=== PATIENT | male | born 1970 | race Caucasian/White ===

== ENCOUNTER 2022-12-26 16:47 | Outpatient (CLI) | payer SELFPAY | END 2022-12-26 16:48 | disposition home or self-care (01) | LOC: AMB 12-29 09:10 | PROVIDERS: Visit Provider Family Medicine | DX: R41.82 Altered mental status, unspecified (principal) | CPT/HCPCS: A0425; A0427 ==

== ENCOUNTER 2022-12-26 17:11 | Observation (INO) | payer SELFPAY ==
[2022-12-26] VITALS (28 sets, daily range): BP systolic 124–152; BP diastolic 78–108; PULSE 70–91; RESP 16–18; TEMP 36.3–36.9; O2SAT 92–99; BMI 26.6; BMI 28.3
--- NOTE | 2022-12-26 17:13 | CT_ITS ---
Final Report Patient: SABAS RAGLAND Facility:?[facility] Patient ID:?[id number] Site Patient ID:?[id number]. Site :?[id number] Study:?CT Neck Angio Angio STROKE ALL IMAGES ON ANGIO HEAD-12/26/2022 5:34:55 PM Ordering Physician:?Varinder Monroy Final Report: INDICATION: Acute stroke, speech difficulty. TECHNIQUE: CTA neck with contrast bolus tracking, 3D angiographic rendering using maximum intensity projection (MIP). FINDINGS: There is no significant carotid artery stenosis or dissection. There is no significant vertebral artery stenosis or dissection. The soft tissues of the neck are within normal limits. The cervical spine is in normal alignment. IMPRESSION: Unremarkable neck CTA. Please note that all CT scans at this facility use dose modulation, iterative reconstruction, and/or weight-based dosing when appropriate to reduce radiation dose to as low as reasonably achievable. Dictated by Prasanna Estevez MD @ 12/27/2022 9:25:24 AM (Electronic Signature)
--- NOTE | 2022-12-26 17:13 | CRLHL7_ITS ---
For Patients: As a result of the Century Cures Act, medical imaging exams and procedure reports are released immediately into your electronic medical record. You may view this report before your referring provider. If you have questions, please contact your health care provider. INDICATION: Stroke, tongue and speech issues. TECHNIQUE: CT head without contrast. COMPARISON: None. FINDINGS: CSF spaces: Within normal limits for age. Brain parenchyma: The jones-white differentiation is normal. No sign of mass, hemorrhage, or midline shift. Skull base and calvarium: The visualized paranasal sinuses and mastoid air cells demonstrate no acute or significant findings. The visualized orbits are grossly unremarkable. No skull fractures. IMPRESSION: No acute intracranial abnormality. Please note that all CT scans at this facility use dose modulation, iterative reconstruction, and/or weight-based dosing when appropriate to reduce radiation dose to as low as reasonably achievable. Dictated by Wang Fontenot MD @ 12/26/2022 5:44:39 PM (Electronically Signed)
--- NOTE | 2022-12-26 17:15 | ED_ITS ---
HPI - General Adult General Date Seen: 12/26/22 Chief complaint: Neuro Symptoms/Altered Deficit Stated complaint: Possible Stroke Time Seen by Provider: 12/26/22 17:22 Source: patient, EMS and RN notes reviewed Mode of arrival: EMS Limitations: no limitations History of Present Illness HPI narrative: Patient is a 52-year-old male appropriately brought in on a [facility] stroke code. Around 425 he was eating, felt sudden onset of being confused, could not chew his food, could not swallow. He actually reached in his mouth and pulled his food out, could not even make the motor function to spit food out. He noted no double vision. He looked in the mirror and did note he had left facial drooping. He did not try to speak at that time but when EMS arrived, they did note left facial drooping and slurred speech. He has improved in route. His facial drooping has resolved. He states he is speaking better now. Can not say how now brown cow succinctly. This started at about 4:25 p.m.. They did check a glucose and he was 304. He is reportedly a diet-controlled type 2 diabetic, no meds. He has never had a prior stroke, no vascular history. Denies any alcohol, no illicit substances, no trauma. 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 Related Data Home Medications Medication Instructions Recorded Confirmed No Known Home Medications 12/26/22 12/26/22 Allergies Allergy/AdvReac Type Severity Reaction Status Date / Time No Known Drug Allergies Allergy Verified 12/26/22 17:31 Review of Systems Status of ROS: Reports: 10 or more systems reviewed and unremarkable except as noted in History and below [facility] Social History Smoking Status: Unknown if ever smoked Exam Const: Vital Signs, click to edit/add: Vital Signs - 24 hr 12/26/22 17:28 12/26/22 17:14 12/26/22 17:39 Temperature 97.3 F L Pulse Rate 81 Pulse Rate [Right Pulse Oximeter] 86 Respiratory Rate 18 Blood Pressure Blood Pressure [Ri ght Upper Arm] 143/108 H Pulse Oximetry 99 97 98 Oxygen Delivery Me thod Room Air 12/26/22 17:47 12/26/22 17:59 12/26/22 18:00 Temperature Pulse Rate 89 85 85 Pulse Rate [Right Pulse Oximeter] Respiratory Rate Blood Pressure 143/83 H Blood Pressure [Ri ght Upper Arm] Pulse Oximetry 97 96 96 Oxygen Delivery Me thod 12/26/22 18:01 12/26/22 18:02 12/26/22 18:15 Temperature Pulse Rate 83 82 85 Pulse Rate [Right Pulse Oximeter] Respiratory Rate Blood Pressure 145/85 H Blood Pressure [Ri ght Upper Arm] Pulse Oximetry 96 96 97 Oxygen Delivery Me thod 12/26/22 18:16 12/26/22 18:17 12/26/22 18:30 Temperature Pulse Rate 86 91 86 Pulse Rate [Right Pulse Oximeter] Respiratory Rate Blood Pressure 131/93 H Blood Pressure [Ri ght Upper Arm] Pulse Oximetry 94 96 96 Oxygen Delivery Me thod 12/26/22 18:31 12/26/22 18:45 12/26/22 18:46 Temperature Pulse Rate 87 80 83 Pulse Rate [Right Pulse Oximeter] Respiratory Rate Blood Pressure 151/101 H 136/88 Blood Pressure [Ri ght Upper Arm] Pulse Oximetry 96 97 95 Oxygen Delivery Me thod 12/26/22 19:00 12/26/22 19:01 12/26/22 19:15 Temperature Pulse Rate 86 81 81 Pulse Rate [Right Pulse Oximeter] Respiratory Rate Blood Pressure 152/87 H Blood Pressure [Ri ght Upper Arm] Pulse Oximetry 96 96 96 Oxygen Delivery Me thod 12/26/22 19:17 12/26/22 19:30 Temperature Pulse Rate 82 80 Pulse Rate [Right Pulse Oximeter] Respiratory Rate Blood Pressure 135/94 H Blood Pressure [Ri ght Upper Arm] Pulse Oximetry 96 94 Oxygen Delivery Me thod Patient was met in the hallway on ambulance arrival, initial survey revealed an alert patient talking, maybe a couple of slight initial slurred words but overall has succinct speech. He is protecting his airway, hemodynamically stable. GCS is 15/15, current NIH on my initial evaluation is 0. Pupils are equal round reactive extraocular muscles intact. Symmetrical facial function, no facial drooping now, EMS confirms this. Normal visual oquendo on confrontation. Neck is supple, no masses. Lungs clear anteriorly with good air entry, regular rate and rhythm no murmur. Abdomen is soft. He has 5/5 strength of his extremities. Can lift his legs off the bed, normal sensation throughout. Equal hand security clerk strength. Documenting provider has reviewed patient's vital signs: yes Common normals: no apparent distress, average body habitus, oriented x3, no limitations, healthy appearing and alert General appearance: cooperative, comfortable, well kempt and well developed HENMT: Common normals: normocephalic, head/scalp atraumatic, hearing grossly normal bilaterally, moist oral mucous membranes, oropharynx normal, dentition n ormal and gingiva normal Head and scalp: normocephalic and atraumatic Eye: Common normals: PERRL, EOMs intact bilaterally, conjunctivae normal, no scleral icterus and normal visual oquendo by confrontation Conjunctiva: conjunctiva(e) normal Pupil: PERRL Neck & C-Spine: Common normals: full ROM, no lymphadenopathy, supple and thyroid normal Thyroid: thyroid normal Resp: Common normals: normal respiratory effort, no retractions, no use of accessory muscles and clear to auscultation bilaterally Auscultation: clear to auscultation bilaterally Cardio: Common normals: regular rate, regular rhythm, S1 normal heart sound, S2 normal heart sound, no gallops, no clicks and no murmurs Rate: regular rate Rhythm: regular rhythm Heart sounds: S1 normal and S2 normal GI: Common normals: Normal to inspection, nondistended, normoactive bowel sounds present, soft to palpation, non-tender, no hepatosplenomegaly and no mas ses Palpation: soft and no hepatosplenomegaly Extremity: Common normals: no pedal edema Neuro: Aminata Coma Scale: document GCS findings Aminata coma scale eye opening: Spontaneous (4) Bruni coma scale verbal response: Orientated (5) Bruni coma scale motor response: Obey commands (6) Bruni coma scale total score: 15 Common normals: oriented x3, CN's II-XII intact bilaterally, moves all extremities, no focal motor deficits, no sensory deficits noted and gait normal Sensorium/orientation: alert Speech: speech normal Psych: Appearance: well kempt Course Course Hospital Course: Patient was taken directly to CT scanner. Afterwards, will have him on cardiac monitoring, pulse oximetry, get appropriate labs, EKG. Make sure there is no arrhythmia. Seems to have had a neurologic event that would be consistent with a TIA. Need to observe him for worsening or recurrence. Will likely eventually talk to Neurology. Reevaluation(s) Reevaluation #1: Patient is still at baseline, no return of any neurologic changes. Reviewed his head noncontrast and the CT angio of his head and neck are revealing no acute pathology. I will be paging stroke Neurology shortly, need to wait for just a while while I finished something else up. Patient understands. Should not be long hopefully before I can page out the stroke neurologist. Time: 18:35 Reevaluation #2: Have reviewed the plan for admission, MRI in the morning. Have reviewed that the neurologist did recommend dual anti-platelet agents at this time with aspirin and Plavix. Further directions based on MRI findings in the morning. He remains asymptomatic at this time. Time: 20:13 Consultations Consultation #1: Have spoke with hospitalist. Did go through [facility] due to our hospitalist being quite busy. We reviewed the case, did review with him that I had spoken with the stroke neurologist at [facility]. She did recommend aspirin and loading of Plavix 300 mg at this time, further directions based off of MRI in the morning. Time: 19:53 Vital Signs Vital signs: Initial Vital Signs Pulse Oximetry 97 12/26/22 17:14 Vital Signs Pulse Oximetry 97 12/26/22 17:14 Temperature 97.3 F L 12/26/22 17:28 Pulse Rate 80 12/26/22 19:30 Respiratory Rate 18 12/26/22 17:28 Blood Pressure 135/94 H 12/26/22 19:17 Pulse Oximetry 94 12/26/22 19:30 Oxygen Delivery Method Room Air 12/26/22 17:28 Medical Decision Making Lab Data Lab results reviewed: Yes I reviewed the patient's lab results Labs: Lab Results 12/26/22 12/26/22 Range/Units 17:14 17:47 WBC 5.70 (4.50-11.00) K/uL RBC 5.81 (4.30-5.90) m/uL Hgb 17.0 (13.5-17.5) gm/dL Hct 48.7 (37.0-53.0) % MCV 84 (80-100) fL MCH 29 (26-34) pg MCHC 35 (32-36) gm/dL RDW Coeff of Michelle 12.1 (11.5-15.5) % Plt Count 196 (140-440) K/uL Neut % (Auto) 65.2 (42.0-72.0) % Lymph % (Auto) 25.8 (20-44) % Caldwell % (Auto) 7.0 (0.0-11.0) % Eos % (Auto) 1.1 (0.0-7.0) % Baso % (Auto) 0.4 (0.0-3.0) % Neut # (Auto) 3.72 (1.7-7.0) K/uL Lymph # (Auto) 1.47 (0.90-2.90) K/uL Caldwell # (Auto) 0.40 (0.00-0.90) K/UL Eos # (Auto) 0.06 (0.00-0.50) K/uL Baso # (Auto) 0.02 (0.00-0.30) K/uL INR 0.91 (0.91-1.10) APTT 24 (23-33) Seconds Sodium 135 (135-149) mmol/L Potassium 4.9 (3.6-5.1) mmol/L Chloride 98 (96-114) mmol/L Carbon Dioxide 25 (20-32) mmol/L BUN 13 (7-30) mg/dL Creatinine 0.6 (0.5-1.5) mg/dL Estimated Creat Clear 131.59 Estimated GFR 115 ml/min Glucose 321 H (60-115) mg/dL Calcium 9.4 (8.4-10.6) mg/dL Total Bilirubin 1.0 (0.1-1.5) mg/dL AST 15 (12-35) U/L ALT 23 (4-50) U/L Alkaline Phosphatase 64 (40-150) U/L Troponin I < 0.01 L (0.01-0.04) ng/mL C-Reactive Protein 0.7 (0.5-1.0) mg/dL Total Protein 7.5 (6.0-8.3) g/dL Albumin 4.4 (3.3-5.0) g/dL SARS-CoV-2 (PCR) Negative SARS-CoV-2 (Negative) Imaging Data CT scan - head: Attestation: I have reviewed the pertinent imaging results. Radiologist's impression: Patient: SABAS RAGLAND Facility:?[facility] Patient ID:?[id number] Site Patient ID:?[id number]. Site :?[id number] Study:?CT Head W/O STROKE CODE-12/26/2022 5:32:36 PM Ordering Physician:Nigel Monroy Final Report: INDICATION: Stroke, tongue and speech issues. TECHNIQUE: CT head without contrast. COMPARISON: None. FINDINGS: CSF spaces: Within normal limits for age. Brain parenchyma: The jones-white differentiation is normal. No sign of mass, hemorrhage, or midline shift. Skull base and calvarium: The visualized paranasal sinuses and mastoid air cells demonstrate no acute or significant findings. The visualized orbits are grossly unremarkable. No skull fractures. IMPRESSION: No acute intracranial abnormality. Please note that all CT scans at this facility use dose modulation, iterative reconstruction, and/or weight-based dosing when appropriate to reduce radiation dose to as low as reasonably achievable. Dictated by Wang Fontenot MD @ 12/26/2022 5:44:39 PM (Electronic Signature) report called at 546pm CTA head and neck: Attestation: I have reviewed the pertinent imaging results. Radiologist's impression: Patient: SABAS RAGLAND Facility:?[facility] Patient ID:?[id number] Site Patient ID:?[id number] Site :?[id number] Study:?CT Head Angio W/95CC ISOVUE 370 STROKE CODE-12/26/2022 5:34:23 PM Ordering Physician:Nigel Monroy Preliminary Report: COMPARISON: None. IMPRESSION: CTA head: Unremarkable. No sign of occlusion or significant aneurysm. CTA neck: Unremarkable. No sign of dissection or significant stenosis. Dictated by Wang Fontenot MD @ 12/26/2022 6:00:04 PM Read by:?Wang Fontenot MD @ 12/26/2022 18:00:08 ECG Data Attestation: I personally reviewed and interpreted this ECG as follows: (NSR, 81bpm. No ischemia. QTc 436ms.) Prior ECG tracings: not available for review Critical Care Time Critical Care Time Critical Care Time: No Discharge Plan Discharge Clinical Impression: TIA (transient ischemic attack) Patient Disposition: Admitted As Inpatient Condition: Improved Prescriptions: No Action No Known Home Medications Follow Up/Referrals: Yovani Hernandez MD [Staff Physician] -
[2022-12-26 17:54] LABS: Basophils Absolute Auto 0.02 K/uL (0.00-0.30); Basophils Percent Auto 0.4 % (0.0-3.0); Eosinophils Absolute Auto 0.06 K/uL (0.00-0.50); Eosinophils Percent Auto 1.1 % (0.0-7.0); Hematocrit 48.7 % (37.0-53.0); Immature Granulocytes Abs Auto 0.03 K/uL (0.00-0.30); Immature Granulocytes Pct Auto 0.5 %; Lymphocytes Absolute Auto 1.47 K/uL (0.90-2.90); Lymphocytes Percent Auto 25.8 % (20-44); Mean Corpuscular HGB Conc 35 gm/dL (32-36); Mean Corpuscular Hemoglobin 29 pg (26-34); Mean Corpuscular Volume 84 fL (80-100); Neutrophils Absolute Auto 3.72 K/uL (1.7-7.0); Neutrophils Percent Auto 65.2 % (42.0-72.0); Platelet Count* 196 K/uL (140-440); RDW Coefficient of Variation % 12.1 % (11.5-15.5); Red Blood Count 5.81 m/uL (4.30-5.90)
[2022-12-26 17:59] LABS: Slide Review Reflex No
[2022-12-26 18:06] LABS: Albumin* 4.4 g/dL (3.3-5.0); Chloride* 98 mmol/L (96-114); Sodium* 135 mmol/L (135-149)
[2022-12-26 18:07] LABS: Potassium* 4.9 mmol/L (3.6-5.1)
[2022-12-26 18:09] LABS: Creatinine* 0.6 mg/dL (0.5-1.5); Est. Creatinine Clearance* 131.59; Estimated Glomerular Filt Rate 115 ml/min
[2022-12-26 18:10] LABS: Alanine Aminotransferase* 23 U/L (4-50); Alkaline Phosphatase* 64 U/L (40-150); Aspartate Amino Transferase* 15 U/L (12-35); Blood Urea Nitrogen* 13 mg/dL (7-30); Calcium* 9.4 mg/dL (8.4-10.6); Carbon Dioxide* 25 mmol/L (20-32); Glucose* 321 mg/dL (60-115); INR 0.91 (0.91-1.10); Prothrombin Time 12.8 Seconds; Total Protein* 7.5 g/dL (6.0-8.3)
[2022-12-26 18:11] LABS: Partial Thromboplastin Time* 24 Seconds (23-33)
[2022-12-26 18:11] LABS: SARS PCR* Negative SARS-CoV-2 (Negative)
[2022-12-26 18:12] LABS: C Reactive Protein* 0.7 mg/dL (0.5-1.0)
[2022-12-26 18:22] LABS: Troponin I* < 0.01 ng/mL (0.01-0.04)
[2022-12-26] MEDS: ASPIRIN 81 MG TAB.CHEW 324 MG PO (20:19)
[2022-12-26] MEDS: CLOPIDOGREL 300 MG TABLET PO (20:20)
--- NOTE | 2022-12-26 23:58 | P.IMCN_ITS ---
Date of Consult Consult date: 12/26/22 Primary Care Provider: Not a Local Provider Consult Narrative Narrative: Johny Mcdonough is a 52 year old male [facility] Medical History (Updated 12/26/22 @ 21:46 by Steven Mann RN) DM (diabetes mellitus), type 2 ?E11.9 - Type 2 diabetes mellitus without complications (ICD-10) Family History (Updated 12/26/22 @ 21:47 by Steven Mann RN) Other History of appendectomy History of hernia surgery Social History Highest level of school completed/degree received: 12th grade, no diploma Smoking Status: Never smoker How often do you have six or more drinks on one occasion: Monthly AUDIT-C Alcohol total score: 2 Non-prescribed substance use: denies use Caffeine: Yes service: Yes Meds Home Medications and Allergies Home Medications Medication Instructions Recorded Confirmed Type No Known Home Medications 12/26/22 12/26/22 History Allergies Allergy/AdvReac Type Severity Reaction Status Date / Time No Known Drug Allergies Allergy Verified 12/26/22 17:31 Exam Const: Vital Signs, click to edit/add: Vital Signs - 24 hr 12/26/22 17:28 12/26/22 17:14 12/26/22 17:39 Temperature 97.3 F L Pulse Rate 81 Pulse Rate [Left P ulse Oximeter] Pulse Rate [Right Pulse Oximeter] 86 Respiratory Rate 18 Blood Pressure Blood Pressure [Le ft Arm] Blood Pressure [Ri ght Upper Arm] 143/108 H Pulse Oximetry 99 97 98 Oxygen Delivery Me thod Room Air 12/26/22 17:47 12/26/22 17:59 12/26/22 18:00 Temperature Pulse Rate 89 85 85 Pulse Rate [Left P ulse Oximeter] Pulse Rate [Right Pulse Oximeter] Respiratory Rate Blood Pressure 143/83 H Blood Pressure [Le ft Arm] Blood Pressure [Ri ght Upper Arm] Pulse Oximetry 97 96 96 Oxygen Delivery Me thod 12/26/22 18:01 12/26/22 18:02 12/26/22 18:15 Temperature Pulse Rate 83 82 85 Pulse Rate [Left P ulse Oximeter] Pulse Rate [Right Pulse Oximeter] Respiratory Rate Blood Pressure 145/85 H Blood Pressure [Le ft Arm] Blood Pressure [Ri ght Upper Arm] Pulse Oximetry 96 96 97 Oxygen Delivery Me thod 12/26/22 18:16 12/26/22 18:17 12/26/22 18:30 Temperature Pulse Rate 86 91 86 Pulse Rate [Left P ulse Oximeter] Pulse Rate [Right Pulse Oximeter] Respiratory Rate Blood Pressure 131/93 H Blood Pressure [Le ft Arm] Blood Pressure [Ri ght Upper Arm] Pulse Oximetry 94 96 96 Oxygen Delivery Me thod 12/26/22 18:31 12/26/22 18:45 12/26/22 18:46 Temperature Pulse Rate 87 80 83 Pulse Rate [Left P ulse Oximeter] Pulse Rate [Right Pulse Oximeter] Respiratory Rate Blood Pressure 151/101 H 136/88 Blood Pressure [Le ft Arm] Blood Pressure [Ri ght Upper Arm] Pulse Oximetry 96 97 95 Oxygen Delivery Me thod 12/26/22 19:00 12/26/22 19:01 12/26/22 19:15 Temperature Pulse Rate 86 81 81 Pulse Rate [Left P ulse Oximeter] Pulse Rate [Right Pulse Oximeter] Respiratory Rate Blood Pressure 152/87 H Blood Pressure [Le ft Arm] Blood Pressure [Ri ght Upper Arm] Pulse Oximetry 96 96 96 Oxygen Delivery Me thod 12/26/22 19:17 12/26/22 19:30 12/26/22 19:31 Temperature Pulse Rate 82 80 84 Pulse Rate [Left P ulse Oximeter] Pulse Rate [Right Pulse Oximeter] Respiratory Rate Blood Pressure 135/94 H 124/86 Blood Pressure [Le ft Arm] Blood Pressure [Ri ght Upper Arm] Pulse Oximetry 96 94 96 Oxygen Delivery Me thod 12/26/22 19:45 12/26/22 19:47 12/26/22 20:00 Temperature Pulse Rate 78 78 75 Pulse Rate [Left P ulse Oximeter] Pulse Rate [Right Pulse Oximeter] Respiratory Rate Blood Pressure 131/88 Blood Pressure [Le ft Arm] Blood Pressure [Ri ght Upper Arm] Pulse Oximetry 96 95 97 Oxygen Delivery Me thod 12/26/22 20:01 12/26/22 21:39 Temperature 98.5 F Pulse Rate 78 Pulse Rate [Left P ulse Oximeter] 72 Pulse Rate [Right Pulse Oximeter] Respiratory Rate 16 Blood Pressure 127/85 Blood Pressure [Le ft Arm] 149/98 H Blood Pressure [Ri ght Upper Arm] Pulse Oximetry 92 96 Oxygen Delivery Me thod Room Air Labs Labs: Short CBC 12/26/22 Range/Units 17:47 WBC 5.70 (4.50-11.00) K/uL Hgb 17.0 (13.5-17.5) gm/dL Hct 48.7 (37.0-53.0) % Plt Count 196 (140-440) K/uL BMP 12/26/22 17:47 Sodium 135 Potassium 4.9 Chloride 98 Carbon Dioxide 25 BUN 13 Creatinine 0.6 Glucose 321 H Calcium 9.4 Cardiac Enzymes 12/26/22 Range/Units 17:47 Troponin I < 0.01 L (0.01-0.04) ng/mL Liver Function 12/26/22 Range/Units 17:47 Total Bilirubin 1.0 (0.1-1.5) mg/dL AST 15 (12-35) U/L ALT 23 (4-50) U/L Alkaline Phosphatase 64 (40-150) U/L Albumin 4.4 (3.3-5.0) g/dL Assessment and Plan Assessment and plan (1) TIA (transient ischemic attack): Status: Acute Plan [facility] Hospitalist eHospitalist was contacted with request of consultation for patient presenting with TIA History of present illness: The patient is a 52-year-old male with a past medical history of diabetes mellitus who was trying to control regular diet who around 4:30 PM this evening felt a sudden onset of confusion and dizziness and difficulty chewing his food and inability to swallow. He actually ration to his mouth to pull out the food bolus because he was not sure if he would pass out or aspirate. He looked in the mirror and also noticed some drooping of the left side of the face. He did not have any speech difficulty or motor weakness, visual symptoms or feelings that he would pass out. Did not have any headache nausea or vomiting. He was actually able to call EMS by himself. When they arrived his fingerstick was 304. By the time he arrived in the emergency room, almost 45 to 60 minutes later, his symptoms had completely resolved. He was mildly hypertensive. CT head did not show any acute pathology, CTA neck did not show any acute large vessel occlusion. ER provider discussed the case with [place] neurology who recommended to bring the patient in for an MRI in the morning and to load with aspirin and Plavix tonight. When I spoke to the patient he had no neurological symptoms and was feeling well. Home Medications: see EMR Pertinent Medical History: Diet-controlled diabetes mellitus. He says his hemoglobin A1c was around 10 Pertinent Social History: Noncontributory Exam (performed via interactive video with assistance of bedside nurse): Afebrile blood pressure 149/98 mmHg pulse rate 72 respirations 16 O2 sat 96% on room air General: alert, cooperative, no acute distress HEENT: oral mucosa pink and moist without erythema. All extraocular movements intact and symmetrical Lungs: clear to auscultation bilaterally without crackle or wheeze CV: regular rate and rhythm without loud murmur rub or gallop Abd: denies tenderness and does not exhibit signs of pain with palpation done by bedside nurse Ext: no pitting edema noted Skin: no rashes, bruises or lesions appreciated on gross visualization of exposed skin Neuro:[alert, oriented x 3. facial muscles grossly intact, moves all extremities without any significant focal deficit appreciated by nurse pertinent labs and imaging Glucose 321 Troponin 0.[address]-T wave changes CT head and CTA neck as discussed Assessment and Plan: The patient is admitted with relatively high risk TIA with ABCD 2 score of 4-5. Currently has no neurological deficits. He does have some hypertension and uncontrolled diabetes mellitus. Case was discussed with [facility] neurology who recommended loading with dual antiplatelet therapy. -Continue aspirin and Plavix until MRI head done tomorrow. We will also get 2D echo -Neurochecks overnight -We will get hemoglobin A1c and lipid panel in the morning. May eventually require a statin, diabetic medications and antihypertensives secondary prevention Thank you for including [facility] in the patients care. This service is available for further assistance as requested by your care team by calling [phone].
[2022-12-27] VITALS (8 sets, daily range): BP systolic 123–130; BP diastolic 70–83; PULSE 69–707; RESP 16–18; TEMP 36.4–36.9; O2SAT 97–98
--- NOTE | 2022-12-27 05:13 | PC.NURSE ---
Shift note: Pt received to the facility at 2125 on a wheelchair accompanied by an ED staff. Alert, oriented and conscious on arrival. V/S stable. ROM present and equal in both upper and lower extremities. CMS intact. No facial dropping noted. Pt denied any pain, SOB, difficulty swallowing and weakness. Ambulated independently without any difficulty. MD assessment through Jale[facility] done at 2330. Pt appears comfortable without any physical deformities related to TIA. Had adequate sleep.EKG ordered and was done. Continuous secured entrance monitor set up and appears to have NSR.
[2022-12-27 06:57] LABS: Cholesterol* 111 mg/dL (90-199)
[2022-12-27 06:58] LABS: HDL Cholesterol* 63 mg/dL (>=40); LDL Cholesterol Calculated 37 mg/dL (<100); Triglycerides* 53 mg/dL (40-149)
[2022-12-27] MEDS: CLOPIDOGREL 75 MG TABLET PO (08:30)
[2022-12-27] MEDS: ASPIRIN 81 MG TAB.CHEW PO (08:30)
[2022-12-27 08:45] LABS: Hemoglobin A1C* 11.95 % (0-5.6)
--- NOTE | 2022-12-27 10:36 | P.IMHP_ITS ---
Hospitalist- H&P: HPI History of Present Illness Date Seen: 12/27/22 Chief complaint: Possible Stroke Narrative: Johny Mcdonough is a 52 year old male who presented to the emergency room by EMS yesterday for acute onset of neurological changes. Patient was at home eating a sandwich in the afternoon, when all of a sudden his tongue felt weird. He was unable to speak and noted a L facial droop when he looked in the mirror. ER course and findings: - symptoms improved during EMS ride to hospital - blood sugar 304 - no acute findings on head CT or CTA head neck - initiated dual antiplatelet therapy with Plavix and ASA - admitted overnight by E-hospitalist, MRI and TTE scheduled for today Patient does not currently have a PCP. History of diabetes, not currently on any medications. A1c this morning is 11.9, upon chart review was 10.7 in 2018. Review of Systems Status of ROS: Reports: 10 or more systems reviewed and unremarkable except as noted in History and below [facility] Medical History (Updated 12/27/22 @ 14:07 by Hollie Eli MD) DM (diabetes mellitus), type 2 ?E11.9 - Type 2 diabetes mellitus without complications (ICD-10) Surgical History (Updated 12/27/22 @ 10:55 by Hollie Eli MD) History of hernia repair ?Z98.890 - Other specified postprocedural states (ICD-10) ?Z87.19 - Personal history of other diseases of the digestive system (ICD-10) S/P appendectomy ?Z90.49 - Acquired absence of other specified parts of digestive tract (ICD- 10) Social History Highest level of school completed/degree received: 12th grade, no diploma Smoking Status: Never smoker How often do you have six or more drinks on one occasion: Monthly AUDIT-C Alcohol total score: 2 Non-prescribed substance use: denies use Caffeine: Yes service: Yes Meds Home Medications and Allergies Allergies Allergy/AdvReac Type Severity Reaction Status Date / Time No Known Drug Allergies Allergy Verified 12/26/22 17:31 Exam Narrative: Exam Narrative: GEN: Alert HEENT: No scleral icterus CV: RRR, No concerning murmurs. + soft left-sided carotid bruit R: LCTA bilaterally without concerning wheezing, air movement adequate Ext: wwp, no concerning edema Skin: No concerning skin lesions or rashes on exposed skin Neuro: No acute facial droop appreciated, EOMIs. No resting tremor, no pronator drift, no dysmetria on finger to nose testing Psych: Appropriate Const: Vital Signs, click to edit/add: Vital Signs - 24 hr 12/26/22 17:28 12/26/22 17:14 12/26/22 17:39 Temperature 97.3 F L Pulse Rate 81 Pulse Rate [Left P ulse Oximeter] Pulse Rate [Right Pulse Oximeter] 86 Respiratory Rate 18 Blood Pressure Blood Pressure [Le ft Arm] Blood Pressure [Ri ght Upper Arm] 143/108 H Pulse Oximetry 99 97 98 Oxygen Delivery Me thod Room Air 12/26/22 17:47 12/26/22 17:59 12/26/22 18:00 Temperature Pulse Rate 89 85 85 Pulse Rate [Left P ulse Oximeter] Pulse Rate [Right Pulse Oximeter] Respiratory Rate Blood Pressure 143/83 H Blood Pressure [Le ft Arm] Blood Pressure [Ri ght Upper Arm] Pulse Oximetry 97 96 96 Oxygen Delivery Me thod 12/26/22 18:01 12/26/22 18:02 12/26/22 18:15 Temperature Pulse Rate 83 82 85 Pulse Rate [Left P ulse Oximeter] Pulse Rate [Right Pulse Oximeter] Respiratory Rate Blood Pressure 145/85 H Blood Pressure [Le ft Arm] Blood Pressure [Ri ght Upper Arm] Pulse Oximetry 96 96 97 Oxygen Delivery Me thod 12/26/22 18:16 12/26/22 18:17 12/26/22 18:30 Temperature Pulse Rate 86 91 86 Pulse Rate [Left P ulse Oximeter] Pulse Rate [Right Pulse Oximeter] Respiratory Rate Blood Pressure 131/93 H Blood Pressure [Le ft Arm] Blood Pressure [Ri ght Upper Arm] Pulse Oximetry 94 96 96 Oxygen Delivery Me thod 12/26/22 18:31 12/26/22 18:45 12/26/22 18:46 Temperature Pulse Rate 87 80 83 Pulse Rate [Left P ulse Oximeter] Pulse Rate [Right Pulse Oximeter] Respiratory Rate Blood Pressure 151/101 H 136/88 Blood Pressure [Le ft Arm] Blood Pressure [Ri ght Upper Arm] Pulse Oximetry 96 97 95 Oxygen Delivery Me thod 12/26/22 19:00 12/26/22 19:01 12/26/22 19:15 Temperature Pulse Rate 86 81 81 Pulse Rate [Left P ulse Oximeter] Pulse Rate [Right Pulse Oximeter] Respiratory Rate Blood Pressure 152/87 H Blood Pressure [Le ft Arm] Blood Pressure [Ri ght Upper Arm] Pulse Oximetry 96 96 96 Oxygen Delivery Me thod 12/26/22 19:17 12/26/22 19:30 12/26/22 19:31 Temperature Pulse Rate 82 80 84 Pulse Rate [Left P ulse Oximeter] Pulse Rate [Right Pulse Oximeter] Respiratory Rate Blood Pressure 135/94 H 124/86 Blood Pressure [Le ft Arm] Blood Pressure [Ri ght Upper Arm] Pulse Oximetry 96 94 96 Oxygen Delivery Me od 12/26/22 19:45 12/26/22 19:47 12/26/22 20:00 Temperature Pulse Rate 78 78 75 Pulse Rate [Left P ulse Oximeter] Pulse Rate [Right Pulse Oximeter] Respiratory Rate Blood Pressure 131/88 Blood Pressure [Le ft Arm] Blood Pressure [Ri ght Upper Arm] Pulse Oximetry 96 95 97 [facility] 12/26/22 20:01 12/26/22 21:39 12/26/22 23:00 Temperature 98.5 F Pulse Rate 78 Pulse Rate [Left P ulse Oximeter] 72 72 Pulse Rate [Right Pulse Oximeter] Respiratory Rate 16 16 Blood Pressure 127/85 Blood Pressure [Le ft Arm] 149/98 H Blood Pressure [Ri ght Upper Arm] Pulse Oximetry 92 96 [facility] 12/26/22 23:45 12/26/22 23:45 12/27/22 00:51 Temperature 98 F 98.4 F Pulse Rate 70 Pulse Rate [Left P ulse Oximeter] 79 79 Pulse Rate [Right Pulse Oximeter] Respiratory Rate 16 16 Blood Pressure Blood Pressure [Le ft Arm] 124/78 124/77 Blood Pressure [Ri ght Upper Arm] Pulse Oximetry 98 98 Oxygen Delivery [facility] Room Air Room Air 12/27/22 03:00 12/27/22 07:00 12/27/22 07:00 Temperature 98.4 F 98.2 F Pulse Rate Pulse Rate [Left P ulse Oximeter] 69 76 76 Pulse Rate [Right Pulse Oximeter] Respiratory Rate 16 16 16 Blood Pressure Blood Pressure [Le ft Arm] 127/75 123/83 Blood Pressure [Ri ght Upper Arm] Pulse Oximetry 98 97 Oxygen Delivery Me thod Room Air Room Air Hospitalist - H&P: Result Labs Labs: Short CBC 12/26/22 Range/Units 17:47 WBC 5.70 (4.50-11.00) K/uL Hgb 17.0 (13.5-17.5) gm/dL Hct 48.7 (37.0-53.0) % Plt Count 196 (140-440) K/uL BMP 12/26/22 17:47 Sodium 135 Potassium 4.9 Chloride 98 Carbon Dioxide 25 BUN 13 Creatinine 0.6 Glucose 321 H Calcium 9.4 Cardiac Enzymes 12/26/22 Range/Units 17:47 Troponin I < 0.01 L (0.01-0.04) ng/mL Liver Function 12/26/22 Range/Units 17:47 Total Bilirubin 1.0 (0.1-1.5) mg/dL AST 15 (12-35) U/L ALT 23 (4-50) U/L Alkaline Phosphatase 64 (40-150) U/L Albumin 4.4 (3.3-5.0) g/dL TECHNIQUE: Multiplanar multisequence noncontrast MR images acquired through the brain. COMPARISON: CT brain 12/26/2022. FINDINGS: The ventricles and sulci are within normal limits for patient age. No mass effect or midline shift. Punctate FLAIR hyperintensity within the right frontal white matter (series 4, image 23), nonspecific though typical for sequelae of migraine headaches or minimal chronic microvascular ischemic change. No intracranial hemorrhage or pathologic extra-axial fluid collection. No diffusion restriction to suggest acute infarction. The major arterial flow voids of the skullbase are preserved. The globes are symmetric. Mild paranasal sinus mucosal thickening. Trace mastoid fluid bilaterally. IMPRESSION: No acute infarction, mass effect, or intracranial hemorrhage. Assessment and Plan Assessment and plan (1) DM (diabetes mellitus), type 2: Problem comment: - A1C 11.9 12/27/22 - will discharge on Metformin 12/27, understands the importance of close PCP f/u and diabetic mgmt Status: Acute (2) TIA (transient ischemic attack): Problem comment: - symptoms resolved in ED, CTA and MRI reassuring - continue dual-antiplatelet therapy for high risk status, establish care with PCP to discuss further workup or Neurology f/u - TTE pending at this time Status: Acute Plan - per above - anticipate discharge home this afternoon with close PCP f/u, pending TTE results - partner updated at bedside, questions answered
--- NOTE | 2022-12-27 11:00 | CRLHL7_ITS ---
For Patients: As a result of the Century Cures Act, medical imaging exams and procedure reports are released immediately into your electronic medical record. You may view this report before your referring provider. If you have questions, please contact your health care provider. INDICATION: Facial droop. Speech disturbance. TECHNIQUE: Multiplanar multisequence noncontrast MR images acquired through the brain. COMPARISON: CT brain 12/26/2022. FINDINGS: The ventricles and sulci are within normal limits for patient age. No mass effect or midline shift. Punctate FLAIR hyperintensity within the right frontal white matter (series 4, image 23), nonspecific though typical for sequelae of migraine headaches or minimal chronic microvascular ischemic change. No intracranial hemorrhage or pathologic extra-axial fluid collection. No diffusion restriction to suggest acute infarction. The major arterial flow voids of the skullbase are preserved. The globes are symmetric. Mild paranasal sinus mucosal thickening. Trace mastoid fluid bilaterally. IMPRESSION: No acute infarction, mass effect, or intracranial hemorrhage. Dictated by Derrek Flores MD @ 12/27/2022 11:10:02 AM (Electronically Signed)
--- NOTE | 2022-12-27 16:34 | NUTR.NU ---
Addendum entered by Adelaida Aguilar RD 12/27/22 16:40: A1c 11.9 Original Note: Patient was educated on carbohydrate counting, portion sizes, balancing meals/snacks and label reading.? Healthy Meal Planning handout provided from [employer].? Recommended for patient to have 3-4 carbohydrate choices at meals with 1-2 choices for snacks as needed based on hunger.? Pt was also encouraged to keep timing of meals consistent and avoid skipping meals. ?Patient had previously attended a Diabetes class series offered by [facility].? He chose not to follow the traditional route but felt that intermittent fasting controlled his BG best.? He admits to having let it go over the past year or more.? ?Patient verbalized understanding.? Pt has adequate knowledge to monitor his BG, count carbs in his food, and access additional education and therapies (updated medication regimen).? RDNs contact information was provided and patient was encouraged to contact RDN with questions.
--- NOTE | 2022-12-27 20:07 | PC.NURSE ---
Nursing Care Hours: 5031-9710 Pt this shift calm and cooperative, alert and oriented. No weakness or deficits observed. Tolerating regular diet. Independent in room. VSS. BS treated with rapid insulin. Educated on diet and exercise to help with DM management. IV removed prior to discharge. All instructions given, all questions and concerns answered. Pt ambulated out to vehicle with spouse in stable condition.
== END 2022-12-27 16:45 | disposition home or self-care (01) ==
LOC: ED 20:17 → MEDSURG 21:22
PROVIDERS: Internal Medicine; Admitting Provider Internal Medicine; Emergency Provider Family Medicine; Visit Provider Internal Medicine
DX: G45.9 Transient cerebral ischemic attack, unspecified (principal); E11.9 Type 2 diabetes mellitus without complications; Z98.890 Other specified postprocedural states; Z87.19 Personal history of other diseases of the digestive system; Z90.49 Acquired absence of other specified parts of digestive tract; F80.9 Developmental disorder of speech and language, unspecified; I10 Essential (primary) hypertension
CPT/HCPCS: 36415; 70450; 70496; 70498; 70551; 80053; 80061; 82962; 83036; 84484; 85025; 85610; 85730; 86140; 87635; 93005; 93306; 94761; 96372; 99285; G0378; A9270; Q9967

== ENCOUNTER 2022-12-27 21:50 | Emergency (ER) | payer SELFPAY ==
[2022-12-27] VITALS (20 sets, daily range): BP systolic 105–196; BP diastolic 76–124; PULSE 92–141; RESP 16; TEMP 36.7; O2SAT 92–99; BMI 28.2
[2022-12-27] MEDS: 0.9 % SODIUM CHLORIDE 1000 ml 1,000 ML IV (22:54)
[2022-12-27] MEDS: LORazepam 2 MG/ML inj 1 MG IVP (22:55)
[2022-12-27 22:58] LABS: Lactate* 2.2 mmol/L (0.5-1.9)
--- NOTE | 2022-12-27 23:10 | ED.NURSE ---
est 7344 pt states pt started to salivate and feel weird, pt head turned to right, drooling with head shaking and upper arm, last about 1 minute. MD Haile to bedside to witness.
--- NOTE | 2022-12-27 23:11 | ED.NURSE ---
Pt's pushed call button in pt room at approximately 2247 stating pt was having another event. This development writer entered the room to see pt shaking in bed with his head turned to the right side and gurgling. This development writer immediately pushed staff assist button for assistance. This development writer attempted to get pt to respond, but he was unable to. Dr. Spann, and other staff arrived to assist after approximately 1 minute. See chart for vitals and medication.
[2022-12-27 23:14] LABS: Chloride* 103 mmol/L (96-114)
[2022-12-27 23:15] LABS: Sodium* 137 mmol/L (135-149)
[2022-12-27 23:17] LABS: Carbon Dioxide* 22 mmol/L (20-32); Creatinine* 0.7 mg/dL (0.5-1.5); Est. Creatinine Clearance* 112.79; Estimated Glomerular Filt Rate 110 ml/min; Lactate Dehydrogenase* 190 U/L (120-246)
[2022-12-27 23:18] LABS: Blood Urea Nitrogen* 17 mg/dL (7-30); Calcium* 9.4 mg/dL (8.4-10.6); Magnesium* 1.6 mg/dL (1.5-2.6)
[2022-12-27 23:24] LABS: Glucose* 460 mg/dL (60-115)
[2022-12-28] VITALS (9 sets, daily range): BP systolic 106–121; BP diastolic 81–92; PULSE 92–99; O2SAT 92–95
--- NOTE | 2022-12-28 01:03 | ED.GENADULT ---
HPI - General Adult General Chief complaint: Unspecified Complaint, Adult Stated complaint: TIA Time Seen by Provider: 12/27/22 21:56 History of Present Illness HPI narrative: 52-year-old man arrives via EMS and presenting with spouse to the emergency department after approximately 2 minute episode of right-sided facial weakness tongue numbness and inability to swallow and subsequently slurring speech right-sided head rotation. Had been trying to eat some blueberries. He is apparently alert somewhat during these episodes. He says making attempts to curse. Is not noted to have become blue. No extremity weaknesses are noted. Sounds like tongue going numb is the 1st sign for him. EMS reports relatively quick clearing of symptoms. This is a similar episode to what occurred yesterday at which point was admitted after normal CT head and CTA head and neck and normal follow-up MRI of the brain. Does have an underlying history of diabetes and with concern of suspected TIA in potentially high-risk individual was discharged with both aspirin and Plavix. I believe the Plavix is to be taken for 30 days per his report. He does reference an echocardiogram as well though I do not see documentation of that in the record. No significant headache history no history of epilepsy in self or family. Related Data Previous Rx's Medication Instructions Recorded aspirin 81 mg chewable tablet 81 mg PO DAILY #30 tabs 12/27/22 (Children's Aspirin) clopidogrel 75 mg tablet 75 mg PO DAILY #30 tabs 12/27/22 metformin 500 mg tablet,extended 500 mg PO BID #60 tabs 12/27/22 release 24hr levetiracetam 750 mg tablet 750 mg PO BID #60 tabs 12/28/22 Allergies Allergy/AdvReac Type Severity Reaction Status Date / Time No Known Drug Allergies Allergy Verified 12/26/22 17:31 Review of Systems Status of ROS: Reports: 6 or more systems reviewed and unremarkable except as noted in History and below [facility] Medical History DM (diabetes mellitus), type 2 ?E11.9 - Type 2 diabetes mellitus without complications (ICD-10) Surgical History History of hernia repair ?Z98.890 - Other specified postprocedural states (ICD-10) ?Z87.19 - Personal history of other diseases of the digestive system (ICD-10) S/P appendectomy ?Z90.49 - Acquired absence of other specified parts of digestive tract (ICD-10) Social History Highest level of school completed/degree received: 12th grade, no diploma Smoking Status: Never smoker How often do you have six or more drinks on one occasion: Monthly AUDIT-C Alcohol total score: 2 Non-prescribed substance use: denies use Caffeine: Yes service: Yes Exam Narrative: Exam Narrative: Very pleasant. Appears to be mentating normally GCS 15. Moving all extremities without difficulty. Joking as per usual. Breathing easily. With initial assessment I thought there was some irregularity on his cardiac monitoring requesting EKG. Is without deficits at this point. Given that he had extensive evaluation within last 24 hours head is bedside to return shortly in this busy emergency department. Proposing some observation. I am called to [facility] [employer] as he is noted to be relatively unresponsive. I arrive to see head rotated forcefully to the right twitching some drooping of the right face drooling and spitting and sonorous breathing. He is alert to my communication and toward the end of this episode which I am understanding to be proximally minute half he is giving me the hang 10 sign. Alerts is able to cooperate with exam. Is slurring words at this time. Very quickly though motor returns to normal. notes how she observed his eyes dilating rather wide just before this episode started. IV fluids are initiated and had been ordered for a mg of Ativan. This is given. Reassessment still subtly slurring words and has rapidly cleared mentally. Heart with elevated rate and regular rhythm. Lungs are clear. Cranial nerves 2-12 intact. No nystagmus. He is with equal and briskly reactive pupils between 2-3 mm. There is no intraoral trauma. He has not lost control of bowel or bladder. Nor did he last time he reports. This is now the 3rd episode in 2 days. [id number] is intact and fluid at this point. Abdomen is soft nontender. No on occasion of trauma on his person. Extremities are without edema and well perfused. Full strength throughout. Cracking jokes. Const: Vital Signs, click to edit/add: Vital Signs - 24 hr 12/27/22 21:57 12/27/22 22:02 12/27/22 22:03 Temperature 98.1 F Pulse Rate 105 H 101 H Pulse Rate [Left P ulse Oximeter] 102 H Respiratory Rate 16 Blood Pressure 139/92 H Blood Pressure [Le ft Upper Arm] 179/82 H Pulse Oximetry 98 98 97 Oxygen Delivery Me thod Room Air 12/27/22 22:10 12/27/22 22:11 12/27/22 22:20 Temperature Pulse Rate 102 H 105 H 106 H Pulse Rate [Left P ulse Oximeter] Respiratory Rate Blood Pressure 117/90 H Blood Pressure [Le ft Upper Arm] Pulse Oximetry 94 95 95 Oxygen Delivery Me thod 12/27/22 22:21 12/27/22 22:52 12/27/22 22:31 Temperature Pulse Rate 104 H 107 H Pulse Rate [Left P ulse Oximeter] Respiratory Rate Blood Pressure 130/91 H 105/89 Blood Pressure [Le ft Upper Arm] Pulse Oximetry 96 98 95 Oxygen Delivery Me thod 12/27/22 22:40 12/27/22 22:42 12/27/22 22:50 Temperature Pulse Rate 141 H 115 H 105 H Pulse Rate [Left P ulse Oximeter] Respiratory Rate Blood Pressure 196/124 H Blood Pressure [Le ft Upper Arm] Pulse Oximetry 98 99 97 Oxygen Delivery Me thod 12/27/22 22:51 12/27/22 23:00 12/27/22 23:01 Temperature Pulse Rate 105 H 95 102 H Pulse Rate [Left P ulse Oximeter] Respiratory Rate Blood Pressure 146/101 H 140/102 H Blood Pressure [Le ft Upper Arm] Pulse Oximetry 96 96 94 Oxygen Delivery Me thod 12/27/22 23:11 12/27/22 23:21 12/27/22 23:31 Temperature Pulse Rate 100 97 94 Pulse Rate [Left P ulse Oximeter] Respiratory Rate Blood Pressure 116/86 114/76 129/79 Blood Pressure [Le ft Upper Arm] Pulse Oximetry 95 93 95 Oxygen Delivery Me thod 12/27/22 23:41 12/27/22 23:51 12/28/22 00:00 Temperature Pulse Rate 92 94 98 Pulse Rate [Left P ulse Oximeter] Respiratory Rate Blood Pressure 124/89 119/84 Blood Pressure [Le ft Upper Arm] Pulse Oximetry 93 92 92 Oxygen Delivery Me thod 12/28/22 00:01 12/28/22 00:11 12/28/22 00:21 Temperature Pulse Rate 99 99 98 Pulse Rate [Left P ulse Oximeter] Respiratory Rate Blood Pressure 121/85 116/81 111/87 Blood Pressure [Le ft Upper Arm] Pulse Oximetry 92 92 92 Oxygen Delivery Me thod 12/28/22 00:31 12/28/22 00:40 12/28/22 00:41 Temperature Pulse Rate 95 98 97 Pulse Rate [Left P ulse Oximeter] Respiratory Rate Blood Pressure 106/92 H 118/81 Blood Pressure [Le ft Upper Arm] Pulse Oximetry 95 92 93 Oxygen Delivery Me thod 12/28/22 00:51 12/28/22 01:01 Temperature Pulse Rate 94 92 Pulse Rate [Left P ulse Oximeter] Respiratory Rate Blood Pressure 112/83 108/85 Blood Pressure [Le ft Upper Arm] Pulse Oximetry 94 94 Oxygen Delivery Me thod Course Vital Signs Vital signs: Initial Vital Signs Temperature 98.1 F 12/27/22 21:57 Temperature Source Temporal Artery Scan 12/27/22 21:57 Pulse Rate 102 H 12/27/22 21:57 Respiratory Rate 16 12/27/22 21:57 Blood Pressure 179/82 H 12/27/22 21:57 Blood Pressure Mean 114 H 12/27/22 21:57 Blood Pressure Position Sitting 12/27/22 21:57 Pulse Oximetry 98 12/27/22 21:57 Oxygen Delivery Method Room Air 12/27/22 21:57 Vital Signs Temperature 98.1 F 12/27/22 21:57 Pulse Rate 102 H 12/27/22 21:57 Respiratory Rate 16 12/27/22 21:57 Blood Pressure 179/82 H 12/27/22 21:57 Pulse Oximetry 98 12/27/22 21:57 Oxygen Delivery Method Room Air 12/27/22 21:57 Temperature 98.1 F 12/27/22 21:57 Pulse Rate 92 12/28/22 01:01 Respiratory Rate 16 12/27/22 21:57 Blood Pressure 108/85 12/28/22 01:01 Pulse Oximetry 94 12/28/22 01:01 Oxygen Delivery Method Room Air 12/27/22 21:57 Medical Decision Making MDM Narrative Medical decision making narrative: I think what we witnessed here was a focal seizure. I do not see stroke-like symptomatology really. Labs are collected. Indeed lactate is little bit elevated 2.2. Normal LDH. Reviewing records again. Please call to [facility] where Neurology have been consulted prior. Given that this seems to be more of a seizure-like event directed to [facility]. I do speak with their on-call who is very helpful and concurs likely focal seizure as most likely prior episodes were too. As expected recommending Keppra load. Is given 2000 mg and to continue with b.i.d. Keppra dosing until follow-up. Discussed no driving this time. Continue to clear during time in emergency department though subtly still slightly slurring words. Otherwise no evidence of CVA. Lab Data Lab results reviewed: Yes I reviewed the patient's lab results Labs: Lab Results 12/27/22 Range/Units 22:53 Sodium 137 (135-149) mmol/L Potassium 4.0 (3.6-5.1) mmol/L Chloride 103 (96-114) mmol/L Carbon Dioxide 22 (20-32) mmol/L BUN 17 (7-30) mg/dL Creatinine 0.7 (0.5-1.5) mg/dL Estimated Creat Clear 112.79 Estimated GFR 110 ml/min Glucose 460 H* (60-115) mg/dL Lactate 2.2 H (0.5-1.9) mmol/L Calcium 9.4 (8.4-10.6) mg/dL Magnesium 1.6 (1.5-2.6) mg/dL Lactate Dehydrogenase 190 (120-246) U/L ECG Data Attestation: I personally reviewed and interpreted this ECG as follows: (Sinus tachycardia at 101. Mildly prominent P-wave. left axis) Critical Care Time Critical Care Time Critical Care Time: Yes Attestation: The patient required my highest level preparedness to intervene emergently and I personally spent this critical care time directly and personally managing the patient. This critical care time included: Obtaining a history; Examining the patient; Pulse oximetry; Ordering and reviewing of studies; Arranging urgent treatment with development of a management plan; Evaluation of patients response to treatment; Frequent reassessment discussions with other providers. This critical care time was performed to assess and manage the high probability of imminent life-threatening deterioration that could result in multiorgan failure. It was exclusive of separate billable procedures and treating other patients and teaching time. Total Critical Care Time in Minutes: 30 Discharge Plan Discharge Clinical Impression: Focal seizures, Diabetes Patient Disposition: Home w/ Parent or Adult Condition: Stable Additional Instructions: Stay well hydrated. Important to get regular and quality sleep. Jhonny I spoke with on-call coverage from [facility]. Recommendations were to load with Keppra as discussed and initiate twice daily dosing with Keppra. Try to get this morning dose in as close as possible to 8:00 a.m. At this time I believe you can discontinue clopidogrel (Plavix). Continue aspirin. Please call tomorrow to schedule with [facility] at phone number [phone]. They would like to see you soon as possible per my conversation with them. Prescriptions: New levetiracetam 750 mg tablet 750 mg PO BID Qty: 60 2RF No Action clopidogrel 75 mg Tablet 75 mg PO DAILY Qty: 30 0RF aspirin [Children's Aspirin] 81 mg Tablet,Chewable 81 mg PO DAILY Qty: 30 0RF metformin 500 mg tablet extended release 24hr 500 mg PO BID Qty: 60 0RF Follow Up/Referrals: Provider,Not a Local [Primary Care Provider] - Stand Alone Forms: [employer] Info Instructions
--- NOTE | 2022-12-28 01:10 | ED.NURSE ---
education on pt not driving provided, pt and both verbally agree pt will not drive until follow up with neurology to get their approval to drive again.
== END 2022-12-28 01:13 | disposition home or self-care (01) ==
PROVIDERS: Emergency Provider Family Medicine
DX: G40.89 Other seizures (principal); E11.9 Type 2 diabetes mellitus without complications
CPT/HCPCS: 36415; 80048; 83605; 83615; 83735; 93005; 94761; 96361; 96374; 96375; 99284; 99291; J1953; J2060; J7030

== ENCOUNTER 2024-10-26 10:45 | Inpatient (IN) | payer OTHER, SELFPAY ==
[2024-10-26] VITALS (18 sets, daily range): BP systolic 128–178; BP diastolic 80–111; PULSE 92–111; RESP 14–18; TEMP 37–37.7; O2SAT 92–99; BMI 27.9; BMI 25.3
--- OUTSIDE RECORDS SUMMARY | 2024-10-26 10:47 | XMS_ITS | Encounter Summary ---
Author Organization [facility] Address [address], [place] [address] Care Team Providers Care [employer] Combination Teacher Name Role Phone Paula Infante MD Primary Care Provider Encounter Details Date Type Department Care Team (Late Contact Info) Description 06/21/2016 Correspondence [facility] Occupational and Environmental Medicine [address] [place] [address] Corona Case MD [address] [place] [address] [phone] PRE-PLACEMENT EXAM Social History Tobacco Use Types Packs/Day Years Used Date Smoking Tobacco: Never Assessed Sex and Gender Information Value Date Recorded Sex Assigned at Not on file Legal Sex Male 4:22 AM CDT Gender Identity Not on file Sexual Orientation Not on file documented as of this encounter Plan of Treatment Upcoming Encounters Date Type Department Care Team (Late st Contact Info) Description 06/24/2025 9:30 AM CDT Appointment [facility] [address] Neurology [address] [place] [address] Marjorie Wan MD [address] [place] [address] documented as of this encounter Visit Diagnoses Not on filedocumented in this encounter Additional Health Concerns Infection Onset Date Last Indicated Resolved Time R/O COVID19 05/19/2023 05/19/2023 05/20/2023 3:54 AM CDT documented as of this encounter Care Teams [employer] Comb[employer] Teacher Relationship Specialty [place] [address] [address] [place] [address] PCP - General Family Practice 05/15/23 documented as of this encounter
--- OUTSIDE RECORDS SUMMARY | 2024-10-26 10:47 | XMS_ITS | Clinical Summary ---
Author Organization [facility] Address [address] [place] [address] Care Team Providers Care Crop Adjuster Name Role Phone No Ref-Primary, Physician Primary Care Provider Allergies No known active allergies Medications multivitamin, therapeutic with minerals (MULTI-VITAMIN) TABS tablet Take 1 tablet by mouth daily Active blood glucose monitoring (NO BRAND SPECIFIED) test strip 7 Active blood glucose monitoring (ACCU-CHEK AKIL) test strip 7 Active Blood Glucose Monitoring Suppl (FIFTY50 GLUCOSE METER 2.0) w/Device KIT Dispense meter, test strips, lancets covered by pt ins. E11.9 NIDDM type II - Test 2 times/day. Reason: High A1C 7 Active ciprofloxacin (CIPRO) 500 MG tabletIndication s:Gross hematuria Take 1 tablet (500 mg) by mouth 2 times daily 14 tablet 8 Active Additional Information Patient not taking.Reported on 04/25/2018 sulfamethoxazole -trimethoprim (BACTRIM/SEPTRA) 400-80 MG per tabletIndication s:Urinary tract infection with hematuria, site unspecified Take 1 tablet by mouth 2 times daily 20 tablet 8 Active Additional Information Patient not taking.Reported on 04/25/2018 Active Problems Problem Noted Date Diagnosed Date Epididymitis 01/25/2018 Sepsis 01/25/2018 Social History Tobacco Use Types Packs/Day Years Used Date Smoking Tobacco: Never Smokeless Tobacco: Never Alcohol Use Standard Drinks/Week Comments No 0 (1 standard drink = 0.6 oz pur e alcohol) Adolescent Education Answer Date Record ed Getting School Help Needed Not on file 05/26 Sex and Gender Information Value Date Recorded Sex Assigned at Not on file Legal Sex Male 1:01 AM CDT Gender Identity Not on file Sexual Orientation Not on file Last Filed Vital Signs Vital Sign Reading Time Taken Comments Blood Pressure 130/80 03/23/2020 1:28 PM CDT Pulse 56 04/25/2018 3:11 PM CDT Temperature 36.3 C (97.4 F) 01/27/2018 7:00 AM CDT Respiratory Rate 16 01/27/2018 7:00 AM CDT Oxygen Saturation 96% 04/25/2018 3:11 PM CDT Inhaled Oxygen Concentration - - Weight 83.9 kg (185 lb) 03/23/2020 1:28 PM CDT Height 171.5 cm (5' 7.5) 03/23/2020 1:28 PM CDT Body Mass Index 28.55 03/23/2020 1:28 PM CDT Plan of Treatment Not on file Insurance [place] [address] INSURANCE Advance Directives For more information, please contact: [phone] * Full Code (Latest Code Status on File) Date Activated Date Inactivated Comments 01/25/2018 3:21 AM 01/27/2018 3:56 PM Care Teams Crop Adjuster Relationship Specialty Start Date End Date No Ref-Primary, Physician PCP - General 03/23/20
--- OUTSIDE RECORDS SUMMARY | 2024-10-26 10:47 | XMS_ITS | Clinical Summary ---
Author Organization [facility] Address [address] [place] [address] Care Team Providers Care Furnace Feeder Name Role Phone Clinic, No Pcp Or Primary Care Provider Unavaila ble Allergies No known active allergies Medications multivitamin (MVI) tablet Take 1 tablet by mouth once daily. 0 03/14/2014 Active blood-glucose meterIndication s:Controlled type 2 diabetes mellitus without complication, without long-term current use of insulin (HC) Dispense meter, test strips, lancets covered by pt ins. E11.9 NIDDM type II - Test 2 times/day. Reason: High A1C 1 Device 10/12/2016 Active ACCU-CHEK AKIL PLUS TEST STRP strip 10/12/2016 Active ACCU-CHEK AKIL CONNECT METER 10/12/2016 Activ e levETIRAcetam (KEPPRA) 750 mg tablet 1 tablet (750mg) Orally Twice a day 30 days 60 Tablet 6 03/02/2023 Active Active Problems Problem Noted Date Diagnosed Date Syrinx of spinal cord 11/18/2016 Overweight 11/18/2016 Liver abscess 07/08/2016 SIRS (systemic inflammatory response syndrome) 1 09/07/2015 Acute appendicitis with generalized peritonitis 06/27/2016 Mixed hyperlipidemia 08/16/2012 Type II or unspecified type diabetes mellitus without mention of complication, not stated as uncontrolled 08/15/2012 Umbilical hernia without mention of obstruction or gangrene 12/31/2009 S/P appendectomy Resolved Problems Problem Noted Date Diagnosed Date Resolved Date Prolonged Q-T interval on ECG 06/28/2016 07/06/2016 Immunizations Name Administration Dates Next Due AMB Influenza, IIV3 (Age >=3 years)(Flu Clinic O nly) 06/07/2013 Pneumococcal Poly,23-Valent (Pneumovax) 09/14/19 13 Tdap 09/14/2012 Family History Medical History Relation Name Comments Cancer-colon Neg. 1 Cancer-prostate Neg. 2 Heart Disease Neg. 3 Diabetes Neg. 4 Relation Name Status Comments Neg. 1 Neg. 2 Neg. 3 Neg. 4 Social History Tobacco Use Types Packs/Day Years Used Date Smoking Tobacco: Never Smokeless Tobacco: Never Tobacco Cessation:Counseling Given: Yes Alcohol Use Standard Drinks/Week Comments Yes 0 (1 standard drink = 0.6 oz pur e alcohol) rare Sex and Gender Information Value Date Recorded Sex Assigned at Not on file Legal Sex Male 5:41 AM PUBLIC RELATIONS COUNSELOR Gender Identity Not on file Sexual Orientation Not on file Obstetrics History Last Filed Vital Signs Vital Sign Reading Time Taken Comments Blood Pressure 136/82 03/24/2017 8:22 AM CDT Pulse 69 03/24/2017 8:22 AM CDT Temperature 36.8 C (98.2 F) 03/24/2017 8:22 AM CDT Respiratory Rate 18 08/05/2016 4:19 PM PUBLIC RELATIONS COUNSELOR Oxygen Saturation 98% 03/24/2017 8:22 AM CDT Inhaled Oxygen Concentration - - Weight 80.6 kg (177 lb 12.8 oz) 03/24/2017 8:22 AM CDT Height 171.5 cm (5' 7.5) 03/24/2017 8:22 AM CDT Body Mass Index 27.44 03/24/2017 8:22 AM CDT Plan of Treatment Health Maintenance Due Date Last Done Comments HIV for age 15-65 11/28/1983 Hepatitis C screening for age 18-79 1986 Colonoscopy through age 75 2013 Depression screening for age 12+ 07/06/2017 07/06/2016, 07/06/2016 BMI (ht and wt on same day) for age 18+ 03/24/2018 03/24/2017, 02/22/2017, 11/18/2016, Additional history exists Pneumococcal series for age 50+ (2 of 2 - PCV) 2018 09/14/2012 Zoster (shingles) series for age 50+ (1 of 2) 2018 Lipids for age 45-75 11/18/2021 11/18/2016, 08/03/2016, 02/22/2013, Additional history exists Tetanus booster 09/14/2022 09/14/2012 COVID-19 vaccine series (2023-25 season) 2024 Influenza for age 50-64 05/05/2024 06/07/2013 Pneumococcal series for age 6-49 Aged Out 09/14/2012 No longer eligible based on patient's age to complete this topic Tdap Completed 09/14/2012 Procedures Procedure Name Priority Date/Time Associated Diagnosis Comments LIPID PANEL W REFLEX MEASURED LDL Routine 11/18/2016 7:40 AM CDT from Last 3 Months or Most Recently Relevant to Health Maintenance Results * (ABNORMAL) LIPID PANEL W REFLEX MEASURED LDL (11/18/2016 7:40 AM CDT) CHOLESTEROL,TOTAL 176 100 - 199 mg/dL 11/18/2016 8:17 AM CDT [facility] TRIGLYCERIDES 112 <150 mg/dL 11/18/2016 8:17 AM CDT [facility] HDL CHOLESTEROL 35(L) >40 mg/dL 7 8:17 AM CDT [facility] NON-HDL CHOLESTEROL 141 <145 mg/dl 11/18/2016 8:17 AM CDT [facility] CHOL/HDL RATIO 5.03(H) <4.50 11/18/2016 8:17 AM CDT [facility] LDL CHOLESTEROL 119 <=130 mg/dL 11/18/2016 8:17 AM CDT [facility] PATIENT STATUS FASTING 11/18/2016 8:17 AM CDT [facility] Blood BLOOD SPECIMEN / Unknown Venipuncture / Unknown 11/18/2016 7:40 AM CDT 11/18/2016 7:40 AM CDT us Yovani Hernandez MD CHEMISTRY Final Result [facility] [address] [place] [address], from Last 3 Months or Most Recently Relevant to Health Maintenance Additional Health Concerns Infection Onset Date Last Indicated ESBL Comment:Order contact precautions. CRE+ R pelvic fluid 07/09/16 07/13/2016 07/13/2016 Advance Directives * Full Code (Latest Code Status on File) Date Activated Date Inactivated Comments 07/08/2016 8:12 PM 07/15/2016 7:10 PM * Full Code Date Activated Date Inactivated Comments 06/28/2016 9:07 AM 07/02/2016 4:31 PM * Full Code Date Activated Date Inactivated Comments 06/28/2016 6:00 AM 06/28/2016 9:07 AM * Full Code Date Activated Date Inactivated Comments 06/27/2016 10:36 PM 06/28/2016 6:00 AM Question Answer Comments Code Status Discussion: Not Discussed Care Teams Furnace Feeder Relationship Specialty Start Date End Date Clinic, No Pcp Or . PCP - General 05/12/17
--- OUTSIDE RECORDS SUMMARY | 2024-10-26 10:47 | XMS_ITS | Encounter Summary ---
Author Organization [facility] Address [address], [place] [address] Care Team Providers Care Plasma Processing Technician Name Role Phone Paula Infante MD Primary Care Provider Encounter Details Date Type Department Care Team (Late Contact Info) Description 06/21/2016 Correspondence [facility] Occupational and Environmental Medicine [address] [place] [address] Corona Case MD [address] [place] [address] [phone] PRE-PLACEMENT EXAM Social History Tobacco Use Types [...] CDT Appointment Specialty Center [address] Neurology [address] [place] [address] Marjorie Wan MD [address] [place] [address] documented as of this encounter Visit Diagnoses Not on filedocumented in this encounter Additional Health Concerns Infection Onset Date Last Indicated Resolved Time R/O COVID19 05/19/2023 05/19/2023 05/20/2023 3:54 AM CDT documented as of this encounter Care Teams Plasma Processing Technician Relationship Specialty [place] [address] [place] [address] [place] [address] PCP - General Family Practice 05/15/23 documented as of this encounter
--- OUTSIDE RECORDS SUMMARY | 2024-10-26 10:47 | XMS_ITS | Clinical Summary ---
Author Organization [facility] Address [address], [place] [address] Care Team Providers Care Rn Neurology Name Role Phone Paula Infante MD Primary Care Provider Source Comments You are receiving this document as you are listed as the primary care provider,follow-up provider, or the patient has been referred to you for consultation.This is in compliance with the Medicare and[facility] EHR Incentive Program,which states Providers who transition their patient to another setting of careor provider of care or refers their patient to another provider of care shouldprovide summary care record for each transition of care or referral. [facility] Allerg[facility] No known active allergies Medications aspirin EC 81 MG enteric coated tablet Take by mouth. 3 Active blood glucose monitor systemIndication s:Diabetes mellitus without complication (HRC) Use to test daily. 1 Each 3 Active lancets (ONE TOUCH ULTRASOFT)Indica tions:Diabetes mellitus without complication (HRC) daily. 100 Each 3 3 Active blood glucose test stripIndications :Diabetes mellitus without complication (HRC) Use to test three times a day. 100 Strip 3 3 Active Additional Information Patient not taking.Reported on 06/27/2024 metFORMIN XR (GLUCOPHAGE XR) 500 MG 24 hour release tabletIndication s:Diabetes mellitus without complication (HRC) TAKE 2 TABLETS (1,000 MG) BY MOUTH TWO TIMES A DAY. 360 Tablet 3 Active Multiple Vitamin (MULTIVITAMINS OR) daily. Active lamoTRIgine (LAMICTAL) 100 MG tabletIndication s:Seizure disorder (HRC) Increase as directed to 1 tab PO QAM & 2 tabs QPM 270 Tablet 3 10/24/202 4 Active Active Problems Problem Noted Date Diagnosed Date Diabetic polyneuropathy asso ciated with diabetes mellitus due to underlying condition 11/09/2023 Seizure disorder 02/10/2023 Overview (02/10/2023): Is on keppra 750mg BID, needs to see neuro ABBEY 03/02/23 Essential hypertension 02/10/2023 Overview (02/15/2023): Is on lisinopril 10mg Qdaily but does not take it, CMP 02/2023 WNL Overweight 11/18/2016 Overview (02/10/2023): BMI 26 Mixed hyperlipidemia 08/16/2012 Overview (05/11/2023): lipid panel 05/2023 chol 265, HDL 33, LDL 188, tri 222, should start atorvastatin Diabetes mellitus without complication 2 Overview (05/11/2023): A1C 05/2023 8.9% (down from 9.1%), Is on metformin 1000mg BID, s/p pneumovax, is not on statin and should start, urine micro 02/2023 14 and he is on JOSE DANIEL-I, recommend starting jardiance Resolved Problems Problem Noted Date Diagnosed Date Resolved Date SIRS (systemic inflammatory response syndrome) 07/08/2016 01/06/2023 Liver abscess 07/08/2016 01/06/2023 Prolonged Q-T interval on ECG 06/28/2016 07/06/2016 Acute appendicitis with gene ralized peritonitis 06/27/2016 01/06/2023 Umbilical hernia 12/31/2009 01/06/2023 Overview (07/05/2019): Umbilical hernia without mention of obstruction or gangrene Syrinx of spinal cord 2023 Overview (11/09/2023): This problem was marked as resolved by a user in a SmartForm. S/P appendectomy 02/10/2023 Immunizations Immunization Administration Dates Next Due Flu Vac (3+ yrs) 06/07/2013 HepB Adult (Engerix-B, 20+ y rs, 3 dose series) 04/26/1995,08/25/1993,06/30/1993 PPSV23 (Pneumovax) 09/14/2012 Tdap 02/10/2023,09/14/2012 Family History Medical History Relation Name Comments ALS Mother Heart Attack Maternal Grandfather Parkinsons Maternal Grandfather Cancer, Colon Other 1 Cancer, Prostate Other 2 Heart Disease Other 3 Diabetes Other 4 Stroke Paternal Grandfather Relation Name Status Comments Mother Maternal Grandfather Other 1 Other 2 Other 3 Other 4 Paternal Grandfather Social History Tobacco Use Types Packs/Day Years Used Date Smoking Tobacco: Never Smokeless Tobacco: Never Alcohol Use Standard Drinks/Week Comments Not Currently 0 (1 standard drink = 0.6 oz pur e alcohol) rare PHQ-2 Answer Date Recorded PHQ-2 Score 0 01/06/2023 Financial Resource Strain Answer Date R ecorded Is it hard for you to pay fo r the very basics like food, housing, medical care or heating? No 02/10/2023 Food Insecurity Answer Date Recorded Does your food run out before you have the money to buy more? No 02/10/2023 Transportation Needs Answer Date Record ed Does a lack of transportatio n keep you from your medical appointments or from getting your medications? No 023 Sex and Gender Information Value Date Recorded Sex Assigned at Not on file Legal Sex Male 4:22 AM CDT Gender Identity Not on file Sexual Orientation Not on file Last Filed Vital Signs Vital Sign Reading Time Taken Comments Blood Pressure 178/101 06/27/2024 9:08 AM CDT Pulse 81 06/27/2024 9:08 AM CDT Temperature 37.6 C (99.7 F) 05/19/2023 2:20 PM CDT Respiratory Rate 14 06/27/2024 9:08 AM CDT Oxygen Saturation 99% 05/19/2023 2:20 PM CDT Inhaled Oxygen Concentration - - Weight 84.4 kg (186 lb) 07/25/2023 9:31 AM CHAIN HOOKER Height 172.7 cm (5' 8) 05/12/2023 7:11 AM CDT Body Mass Index 28.28 05/12/2023 7:11 AM CDT Plan of Treatment Upcoming Encounters Date Type Department Care Team (Late st Contact Info) Description 06/24/2025 9:30 AM CDT Appointment Specialty Center [address] Neurology [address] [place] [address] Marjorie Wan MD [address] [place] [address] Health Maintenance Due Date Last Done Comments Colon Cancer Screening Plan Due 1968 Hep C Screening (Preventive Services) 1968 HIV Screening (Preventive Services) 1984 Pneumococcal 50+ Yrs (2 of 2 - PCV) 09/14/2013 09/14/2012 Pneumococcal (2 - PCV) 09/14/2013 09/14/2012 Zoster/Shingles (1 of 2) 2018 PSA Screening 03/27/2021 03/27/2020 Diabetes: HGBA1C 11/09/2023 05/11/2023, 03/2023, 02/10/2023, Additional history exists Adult Preventive Visit 02/11/2024 02/10/2023 Diabetes: Eye Exam 02/11/2024 02/10/2023, 0 09/05/2012 (Completed) Diabetes: Urine Microalbumin 02/11/2024 02/10/2023 Diabetes: Creatinine 03/03/2024 03/03/2023, 02/11/20 23 COVID-19 Vaccine ( season) 2024 Influenza (#1) 2024 06/07/2013 Diabetes: Foot Exam 07/25/2024 07/25/2023 Diabetes: Lipid Panel 05/11/2028 05/11/2023, 023 DTaP/Tdap/Td (3 - Tdap) 02/10/2033 02/10/2023, 09/14 HepB Completed 04/26/1995, 08/05, 06/30/1993 PSA Screening Discussion Discontinued 03/27/2020 HepA Aged Out No longer eligi ble based on patient's age to complete this topic Hib Aged Out No longer eligi ble based on patient's age to complete this topic IPV (Polio) Aged Out No longer eligi ble based on patient's age to complete this topic MCV4 Aged Out No longer eligi ble based on patient's age to complete this topic Meningococcal B Aged Out No longer el igible based on patient's age to complete this topic Procedures Procedure Name Priority Date/Time Associated Diagnosis Comments LIPID PANEL & DIRECT LDL (IF NEEDED) Routine 05/11/2023 7:09 AM CDT Mixed hyperlipidemia (HRC) HGB A1C Routine 05/11/2023 7:09 AM CDT Diabetes mellitus without complication (HRC) COMPREHENSIVE METABOLIC PANEL Routine 03/03/2023 7:51 AM CDT Encounter for long-term (current) use of medications ALBUMIN/CREAT RATIO Routine 02/10/2023 1 2:00 PM CDT Diabetes mellitus without complication (HRC) from Last 3 Months or Most Recently Relevant to Health Maintenance Results * (ABNORMAL) Lipid Panel and Direct LDL(If Needed) (05/11/2023 7:09 AM CDT) Cholesterol 265(H) 0 - 199 mg/dL 05/11/2023 10:56 AM [facility] Triglyceride 222(H) <=149 mg/dL 05/11/2023 10:56 AM [facility] HDL Cholesterol 33(L) >=40 mg/dL 10:56 AM [facility] LDL, Calculated 188(H) <130 mg/dL 10:56 AM [facility] Non HDL Chol, Calculated 232(H) <=159 mg/dL 05/11/2023 10:56 AM [facility] Cholesterol/HDL Ratio 8.0 05/11/2023 10:56 AM [facility] Hours Fasting 10.0 8 - 12 Hours 05/11/2023 10:56 AM T [facility] Blood Venipuncture / Unknown 05/11/2023 7:09 AM CDT 05/11/2023 7:09 AM CDT us Min Osorio MD LAB_1 Final Result [facility] [address] [place] [address], [facility] [phone] [facility] [address] [place] [address], [facility] [phone] * (ABNORMAL) Hgb A1C (Expected: Now) - Collect in Lab (05/11/2023 7:09 AM CDT) Hemoglobin A1C 8.9(H) <=5.6 % 05/11/2023 2:36 PM CDT [facility] Estimated Average Glucose (Calc) 209 < 117 mg/dL 05/11/2023 2:36 PM CDT [facility] Comment:Estimated average gl ucose (eAG) converts A1c into glucose units (mg/dL) and estimates average glucose over the past approximately 3 months. The eAG reference interval (<117 mg/dL) corresponds to an A1c of <5.7%. Blood Venipuncture / Unknown 05/11/2023 7:09 AM CDT 05/11/2023 7:09 AM CDT Narrative [facility] - 05/11/2023 2:36 PM CDT For patients not previously diagnosed with diabetes: 5.7-6.4%: Increased risk for diabetes 6.5% and greater: Diagnostic for diabetes For patients diagnosed with diabetes: <8.0%: Goal of therapy for ages 18-75 Clinicians may recommend a higher or lower goal for specific individuals. Min Osorio MD LAB_1 Final Result [facility] [address] [address], [facility] [phone] * (ABNORMAL) Comp Metabolic Panel (03/03/2023 7:51 AM CDT) Sodium 142 136 - 145 mmol/L 03/03/2023 10:12 AM CDT [facility] Potassium 5.0 3.5 - 5.1 mmol/L 03/03/2023 10:12 AM [facility] Chloride 105 98 - 109 mmol/L 03/03/2023 10:12 AM [facility] CO2 26 20 - 29 mmol/L 03/03/2023 10:12 AM [facility] Anion Gap 11 7 - 16 mmol/L 03/03/2023 10:12 AM [facility] Calcium 9.5 8.4 - 10.4 mg/dL 03/03/2023 10:12 AM [facility] BUN 16 7 - 26 mg/dL 03/03/2023 10:12 AM [facility] Creatinine 0.90 0.73 - 1.18 mg/dL 03/03/2023 10:12 AM [facility] Alkaline Phosphatase 56 40 - 150 U/L 03/03/2023 10:12 AM [facility] AST (SGOT) 13 10 - 40 U/L 03/03/2023 10:12 AM [facility] ALT (SGPT) 20 <=55 U/L 03/03/2023 10:12 AM [facility] Bilirubin, Total 0.6 0.2 - 1.2 mg/dL 03/03/2023 10:12 AM [facility] Protein, Total 7.0 6.4 - 8.3 g/dL 03/03/2023 10:12 AM [facility] Albumin 4.1 3.5 - 5.0 g/dL 03/03/2023 10:12 AM [facility] Glucose 298(H) 70 - 100 mg/dL 03/03/2023 10:12 AM [facility] Comment:The given reference range is for the fasting state. Non-fasting reference range for glucose is 70 - 180 mg/dL. Hours Fasting 15 03/03/2023 10:12 AM [facility] GFR, Estimated >60 >60 mL/min/1.7 3m2 03/03/2023 10:12 AM [facility] Blood Venipuncture / Unknown 03/03/2023 7:51 AM CDT 03/03/2023 7:51 AM T us Petra Bermudez MD LAB_1 Final Result Performing Organization Address City/State/[facility] Co de Phone Number [facility] [address] [place] [address], [facility] [phone] [facility] [address] [place] [address], [facility] [phone] * Albumin/Creatinine Ratio,Random Urine (02/10/2023 12:00 PM CDT) Albumin/Creati nine Ratio, Urine, Random 14 <30 mg/g 02/10/2023 4:53 PM CDT [facility] Albumin, Urine, Random 13.7 mg/L 02/10/2023 4:53 PM CDT [facility] Creatinine, Urine, Random 95 >20 mg/dL mg/dL 02/10/2023 4:53 PM CDT [facility] Urine Non-blood Collection / Unknown 02/10/2023 12:00 PM CDT 02/10/2023 12:00 PM CDT Min Osorio MD LAB_1 Final Result Performing Organization Address [facility] Co de Phone Number [facility] [address] [place] [address], [facility] [phone] from Last 3 Months or Most Recently Relevant to Health Maintenance Insurance [employer] Care Teams Rn Neurology Relationship Specialty [place] [address] [place] [address] PCP - General Family Practice 05/15/23
--- NOTE | 2024-10-26 11:28 | ED_ITS ---
<Statement entered by Abdelrahman Dave MD - 10/27/24 14:10> This documentation has been reviewed and approved. HPI - General Adult General Date Seen: 10/26/24 Chief complaint: Skin/Abscess/Foreign Body Stated complaint: Thinks has an abscess and in pain Time Seen by Provider: 10/26/24 11:07 History of Present Illness HPI narrative: 53-year-old male with a type 2 diabetes (he is currently he is managing his diabetes with diet alone. It sounds like he has chosen not to be on some diabetes medications, like metformin due to potential side effects. He says he has done his own research on metformin and knows that it can cause neuropathy and other side effects. He has a device at home for checking his A1c and says it has been ?pretty good? lately, but then he says he has not checked in a while. It does not sound like he routinely checks his blood sugars). He also has a history seizures (previously on Keppra. Apparently that caused mood disturbance so his neurologist to come off that and started him on a different seizure med. He does not know the name of his new seizure med. He also has a history of appendectomy and hernia surgery. 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 He notes that he has had an infection on the back of his scalp at the base of his hairline at the top of his neck. It 1st started about a week ago last weekend and was roughly the size of a quarter or a silver dollar. Beginning mid week it started spreading rapidly and became fairly large, now measuring about 10 x 12 cm with some pain and erythema spreading all the way up to the back of both of his ears. He has not had any fevers but he has been feeling a bit weak and run down. It is painful and he rates his pain an 8/10. It has been draining a yellow whitish greenish purulent fluid from multiple spots in the skin. He is concerned he might have a abscess. He has no previous history of similar skin infections but did have a cellulitis several years ago. No clear recollection of previous MRSA colonization. He has no history of other skin fungal infections. He does not know what his blood sugars been running. He does not feel like he has a fever. No trouble breathing. No vomiting. Related Data Home Medications ?Medication ?Instructions ?Recorded ?Confirmed lamotrigine 100 mg tablet mg 10/27/24 Allergies Allergy/AdvReac Type Severity Reaction Status Date / Time No Known Drug Allergies Allergy Verified 10/26/24 11:00 [facility] Medical History (Updated 10/26/24 @ 18:05 by Abdelrahman Dave MD) Seizure disorder ?G40.909 - Epilepsy, unspecified, not intractable, without status epilepticus (ICD-10) DM (diabetes mellitus), type 2 ?E11.9 - Type 2 diabetes mellitus without complications (ICD-10) Surgical History (Updated 10/26/24 @ 17:56 by Abdelrahman Dave MD) History of hernia repair ?Z98.890 - Other specified postprocedural states (ICD-10) ?Z87.19 - Personal history of other diseases of the digestive system (ICD-10) S/P appendectomy ?Z90.49 - Acquired absence of other specified parts of digestive tract (ICD- 10) Family History (Updated 10/26/24 @ 17:56 by Abdelrahman Dave MD) Mother ALS (amyotrophic lateral sclerosis) Social History (Updated 10/26/24 @ 17:58 by Abdelrahman Dave MD) Narrative: Patient lives in [place]. Healthcare power of immigration attorney is his friend Stephanie. Code status is full. 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 living situation?: I presently have a place to live Problems where you live: no known problems Problems where you live details: n/a In the past 12 months, utilities in danger of being shut off: no In past 12 months, lack of transportation kept you from medical appts, meetings, work, or getting things needed for daily living: no In the past 12 mos, have been you worried that your food would run out before you had money to buy more?: never true In the past 12 mos, the food you bought just didn't last and you didn't have money to buy more?: never true Highest level of school completed/degree received: 12th grade, no diploma Smoking Status: Never smoker Do you use any of these nicotine containing products: None Second hand tobacco smoke exposure: No How often do you have a drink containing alcohol: never How often do you have six or more drinks on one occasion: Monthly AUDIT-C Alcohol total score: 2 Non-prescribed substance use: denies use Caffeine: Yes How often does anyone, including family, friends and others, physically hurt you : never How often does anyone, including family, friends and others, insult or talk down to you: never How often does anyone, including family, friends and others, threaten you with harm: never How often does anyone, including family, friends and others, scream or curse at you: never service: Yes Exam Narrative: Exam Narrative: Constitutional: Appears well-developed and well-nourished. Alert. Conversant. Non toxic. HENT: Head: Atraumatic. Nose: Nose normal. Mouth/Throat: Oral mucosa is clear and moist. no trismus. Pharynx normal. Tonsils symmetric. No tonsillar enlargement, erythema, or exudate. Eyes: Conjunctivae normal. EOM normal. Pupils equal, round, and reactive to light. No scleral icterus. Neck: Normal lateral rotation. He has difficulty fully extending his neck because of the amount of pain and discomfort he has on the back of his neck from his infection. Anterior neck is normal. Airway widely patent. No trismus. Neck supple. No tracheal deviation present. Cardiovascular: Normal rate, regular rhythm. No gallop. No friction rub. No murmur heard. Symmetric radial artery pulses Pulmonary/Chest: Effort normal. No stridor. No respiratory distress. No wheezes. No rales. No rhonchi . No tenderness. Abdominal: Soft.No distension. No mass. No tenderness. No rebound. No guarding. Musculoskeletal: RUE: Normal range of motion. No tenderness. No deformity LUE: Normal range of motion. No tenderness. No deformity RLE: Normal range of motion. No edema. No tenderness. No deformity LLE: Normal range of motion. No edema. No tenderness. No deformity Lymph: No cervical or occipital adenopathy. Neurological: Alert and oriented to person, place, and time. Normal strength. CN II-VII intact. No sensory deficit. GCS eye subscore is 4. GCS verbal subscore is 5. GCS motor subscore is 6. Normal coordination Skin: This is a fairly large area of inflamed indurated red skin. The center area of this is about 10 x 12 cm in diameter and is indurated and inflamed. There are multiple areas of purulent drainage that appear to be from the hair follicles on the base of his scalp. Perhaps some limited hair loss there. The entire area is firm and indurated but there is no definite palpable fluctuance. Surrounding this there is a no other rim of erythema with less significant induration spreading several more cm. No signs of redness spreading caudally down the neck. Skin is warm and dry. No rash noted. No pallor. Normal capillary refill. Psychiatric: Normal mood. Normal affect. Const: Vital Signs, click to edit/add: Vital Signs - 24 hr 10/26/24 14:15 10/26/24 14:30 10/26/24 14:45 Pulse Rate 94 93 93 Respiratory Rate 14 Blood Pressure 175/86 H Pulse Oximetry 98 97 96 Oxygen Delivery Me thod Room Air 10/26/24 14:51 10/26/24 15:01 10/26/24 15:28 Pulse Rate 96 99 Respiratory Rate Blood Pressure 149/90 H 148/107 H Pulse Oximetry 97 97 Oxygen Delivery Me thod 10/26/24 15:30 10/26/24 15:33 10/26/24 15:45 Pulse Rate 94 95 96 Respiratory Rate Blood Pressure 155/89 H Pulse Oximetry 96 95 92 Oxygen Delivery Me thod 10/26/24 16:00 10/26/24 16:02 Pulse Rate 100 99 Respiratory Rate 16 Blood Pressure 128/86 Pulse Oximetry 96 95 Oxygen Delivery Me thod Room Air Course Vital Signs Vital signs: Initial Vital Signs Temperature 98.7 F 10/26/24 10:51 Temperature Source Temporal Artery Scan 10/26/24 10:51 Pulse Rate 110 H 10/26/24 10:51 Pulse Rhythm Regular 10/26/24 10:51 Pulse Strength 3+ Normal 10/26/24 10:51 Respiratory Rate 18 10/26/24 10:51 Blood Pressure 178/94 H 10/26/24 10:51 Blood Pressure Mean 122 H 10/26/24 10:51 Blood Pressure Position Sitting 10/26/24 10:51 Pulse Oximetry 98 10/26/24 10:51 Oxygen Delivery Method Room Air 10/26/24 10:51 Vital Signs Temperature 98.7 F 10/26/24 10:51 Pulse Rate 110 H 10/26/24 10:51 Respiratory Rate 18 10/26/24 10:51 Blood Pressure 178/94 H 10/26/24 10:51 Pulse Oximetry 98 10/26/24 10:51 Oxygen Delivery Method Room Air 10/26/24 10:51 Temperature 99.0 F 10/27/24 11:13 Pulse Rate 98 10/27/24 11:13 Respiratory Rate 16 10/27/24 11:13 Blood Pressure 138/85 10/27/24 11:13 Pulse Oximetry 97 10/27/24 11:13 Oxygen Delivery Method Room Air 10/27/24 11:13 Medications Administered Medications: Generic Name Dose Route Start Last Admin Trade Name Gonzales PRN Reason Stop Dose Admin Vancomycin/PEG/NADA/Lysine/Water 1.25 gm in 250 mls @ 200 mls/hr 10/27/24 06:00 10/27/24 06:02 Vancomycin 1.25 Gm/250 Ml IVPB 200 mls/hr Q12H ABBEY Administration Protocol Insulin Aspart 0 unit 10/26/24 17:30 10/27/24 12:24 Insulin Aspart 100 Unit/Ml SUBCUT 6 unit ACHS ABBEY Administration Protocol Insulin Aspart 4 unit 10/27/24 12:00 10/27/24 12:24 Insulin Aspart 100 Unit/Ml SUBCUT 4 unit TIDWM ABBEY Administration Lamotrigine 100 mg 10/27/24 09:00 10/27/24 11:16 Lamotrigine 100 Mg Tablet PO 100 mg DAILY ABBEY Administration Sodium Chloride 5 ml 10/26/24 21:00 10/27/24 06:04 Sodium Chloride 0.9 % (Flush) 10 Ml Syringe IVF 5 ml BID ABBEY Administration Discontinued Medications Generic Name Dose Route Start Last Admin Trade Name Gonzales PRN Reason Stop Dose Admin Fluconazole 200 mg 10/27/24 09:00 10/27/24 09:22 Fluconazole 100 Mg Tablet PO 200 mg DAILY ABBEY Administration Hyaluronidase Human 300 unit 10/26/24 15:18 10/26/24 15:53 Hyaluronidase, Human Recomb. 150 Unit/Ml Vial INTRADERMA 10/26/24 15:19 300 unit ONCE ONE Administration Hydromorphone HCl 0.5 mg 10/26/24 13:15 10/27/24 07:57 Hydromorphone 0.5 Mg/0.5 Ml Inj IVP 0.5 mg Q1H PRN Administration Pain Hydromorphone HCl 1 mg 10/26/24 14:18 10/26/24 14:48 Hydromorphone 0.5 Mg/0.5 Ml Inj IVP 10/26/24 14:19 1 mg ONCE ONE Administration Hydromorphone HCl 0.5 mg 10/27/24 12:08 10/27/24 12:25 Hydromorphone 0.5 Mg/0.5 Ml Inj IVP 10/27/24 12:09 0.5 mg ONCE ONE Administration Vancomycin/PEG/NADA/Lysine/Water 2 gm in 400 mls @ 200 mls/hr 10/26/24 11:58 10/26/24 16:56 Vancomycin 2 Gm/400 Ml IVPB 10/26/24 13:57 Infused ONCE ONE Infusion Protocol Fluconazole 200 mg in 100 mls @ 100 mls/hr 10/26/24 12:16 10/26/24 13:10 Fluconazole In Nacl IVPB 100 mls/hr Q24H ABBEY Administration Lactated Ringer's 500 mls @ 500 mls/hr 10/26/24 18:04 10/26/24 19:23 Lactated Ringers 500 Ml IV 10/26/24 19:03 500 mls/hr .Q1H ONE Administration Insulin Glargine 12 unit 10/27/24 10:52 10/27/24 12:22 Insulin Glargine,Hum.Rec.Anlog 100 Unit/Ml Insuln.Pen SUBCUT 10/27/24 10:53 12 unit ONCE ONE Administration Insulin Human Regular 5 unit 10/26/24 14:18 10/26/24 14:48 Insulin Regular, Human 100 Unit/Ml Vial IVP 10/26/24 14:19 5 unit ONCE ONE Administration Lamotrigine 200 mg 10/26/24 21:00 10/26/24 20:53 Lamotrigine 100 Mg Tablet PO 200 mg HS ABBEY Administration Lidocaine HCl 20 ml 10/27/24 12:08 10/27/24 12:52 Lidocaine 1% Mdv INJECTION 10/27/24 12:09 20 ml ONCE ONE Administration Medical Decision Making [facility] Narrative Medical decision making narrative: Pleasant 53-year-old [employer] presenting to the ER today with a large area of redness, swelling and induration, purulent drainage affecting the back of his neck/occipital scalp. Presentation is concerning for active infection. Differential includes bacterial infection such as MRSA or other skin yessica. Exam does reveal significant induration, swelling, and multiple sites of purulent drainage from hair follicles, but no definite fluctuance. Ultrasound does not reveal any definite contained fluid collection that would be amenable to immediate incision and drainage. Differential also would include tinea infection such as Kerion. Based on the amount of infected tissue, I do think patient required IV, labs and admission. Will start on vancomycin to cover for MRSA. Would also start antifungals for possible carry on. Discussed with pharmacy. Terbinafine or griseofulvin would be 1st line but these are not available in the hospital for miliary. We do have fluconazole which can be (per UpToDate reference) alternative. Will start on IV fluconazole as well. Laboratory workup shows marked leukocytosis with I count of 25. Blood pressure and pulse are stable. At this point although he does have a significant infection no evidence for sepsis or septic shock. He does have hyperglycemia with a glucose of 3 in 30. It sounds like he has type 2 diabetes but is not currently taking any medications for it. I am concerned about uncontrolled diabetes contributing/worsening this infection. Laboratory workup does show a metabolic acidosis with a pH is 7.29. Anion gap is slightly widened at 21. Started on insulin IV here in the ER. Hospitalist will admit. This point hold off on insulin drip. We suspect that this is probably hyperglycemia exacerbated by his current infection rather than active DKA. Of note, while the patient was receiving his vancomycin infusion the IV in his right antecubital fossa infiltrated. I re-evaluated the arm. It was swollen and fluid was present but there was no signs of significant erythema and no skin breakdown. We will administer subcutaneous how your on today's for potential extravasation injury . Dr. Dave, hospitalist, will admit. Lab Data Labs: Lab Results 10/26/24 10/26/24 10/26/24 Range/Units 12:45 12:47 15:49 WBC 25.11 H* (4.50-11.00) K/uL RBC 5.02 (4.30-5.90) m/uL Hgb 14.4 (13.5-17.5) gm/dL Hct 42.3 (37.0-53.0) % MCV 84 (80-100) fL MCH 29 (26-34) pg MCHC 34 (32-36) gm/dL RDW Coeff of Michelle 12.0 (11.5-15.5) % Plt Count 341 (140-440) K/uL Neut % (Auto) 84.7 H (42.0-72.0) % Lymph % (Auto) 5.0 L (20-44) % Terry % (Auto) 7.9 (0.0-11.0) % Eos % (Auto) 0.2 (0.0-7.0) % Baso % (Auto) 0.1 (0.0-3.0) % Neut # (Auto) 21.30 H (1.7-7.0) K/uL Lymph # (Auto) 1.30 (0.90-2.90) K/uL Terry # (Auto) 2.00 H (0.00-0.90) K/UL Eos # (Auto) 0.10 (0.00-0.50) K/uL Baso # (Auto) 0.00 (0.00-0.30) K/uL Abs Immat Gran (auto) 0.50 H (0.00-0.30) K/uL Imm/Tot Granulo (auto) 2.1 % Diff Slide Review Acceptable Review (Acceptable) VBG pH 7.291 L (7.32-7.43) VBG pCO2 42 (40-50) mmHG VBG pO2 < 30.1 (25-47) mmHG VBG HCO3 20 L (21-28) mmol/L Sodium 132 L (135-149) mmol/L Potassium 3.7 (3.6-5.1) mmol/L Chloride 93 L (96-114) mmol/L Carbon Dioxide 18 L (20-32) mmol/L Anion Gap 21 H (7-15) mEq/L BUN 15 (7-30) mg/dL Creatinine 0.9 (0.5-1.5) mg/dL Estimated Creat Clear 86.71 Estimated GFR 101 ml/min Glucose 330 H (60-115) mg/dL Hemoglobin A1c 13.0 H (0-5.6) % Lactate 1.3 (0.5-1.9) mmol/L Calcium 9.3 (8.4-10.6) mg/dL Lab Acknowledgement Test Added Discharge Plan Discharge Clinical Impression: Cellulitis of neck, Hyperglycemia Patient Disposition: Admitted As Inpatient Procedures Ultrasound Skin/Soft Tissue exam #1: Anatomical areas examined: Posterior neck/base of scalp Indications: soft tissue pain, soft tissue swelling and soft tissue redness Exam type: limited soft tissue ultrasound Findings: generalized edema/cobble stoning Impression: other (No definite discrete fluid collection.)
--- OUTSIDE RECORDS SUMMARY | 2024-10-26 12:32 | XMS_ITS | Encounter Summary ---
Author Organization [facility] Address [address], [place] [address] Care Team Providers Care Health Outcomes Liaison Name Role Phone Paula Infante MD Primary Care Provider Encounter Details Date Type Department Care Team (Late Contact Info) Description 06/21/2016 Correspondence [facility] Occupational and Environmental Medicine [address] [place] [id number] Corona Case MD [address] [place] [address] [phone] PRE-PLACEMENT EXAM Social History Tobacco Use Types [...] CDT Appointment [facility] [address] [place] [address] Marjorie Wan MD [address] [place] [address] documented as of this encounter Visit Diagnoses Not on filedocumented in this encounter Additional Health Concerns Infection Onset Date Last Indicated Resolved Time R/O COVID19 05/19/2023 05/19/2023 05/20/2023 3:54 AM CDT documented as of this encounter Care Teams Health Outcomes Liaison Relationship Specialty [place] [address] [address] [place] [address] PCP - General Family Practice 05/15/23 documented as of this encounter
--- OUTSIDE RECORDS SUMMARY | 2024-10-26 12:32 | XMS_ITS | Clinical Summary ---
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 Gender Identity Not on file Sexual Orientation Not on file Obstetrics History Last Filed Vital Signs Vital Sign Reading Time Taken Comments Blood Pressure 136/82 03/24/2017 8:22 AM CDT Pulse 69 03/24/2017 8:22 AM CDT Temperature 36.8 C (98.2 F) 03/24/2017 8:22 AM CDT Respiratory Rate 18 08/05/2016 4:19 PM C++ PROFESSOR Oxygen Saturation 98% 03/24/2017 8:22 AM CDT [...] - 199 mg/dL 11/18/2016 8:17 AM CDT [facility] TRIGLYCERIDES 112 <150 mg/dL 11/18/2016 8:17 AM CDT [facility] HDL CHOLESTEROL 35(L) >40 mg/dL 7 8:17 AM CDT [facility] NON-HDL CHOLESTEROL 141 <145 mg/dl 11/18/2016 8:17 AM CDT [facility] CHOL/HDL RATIO 5.03(H) <4.50 11/18/2016 8:17 AM CDT [facility] LDL CHOLESTEROL 119 <=130 mg/dL 11/18/2016 8:17 AM CDT [facility] PATIENT STATUS FASTING 11/18/2016 8:17 AM CDT [facility] Blood BLOOD SPECIMEN / Unknown Venipuncture / Unknown 11/18/2016 7:40 AM CDT 11/18/2016 7:40 AM CDT us Yovani Hernandez MD CHEMISTRY Final Result [facility] [address] [place] [address], from Last 3 Months or Most Recently [...] Code Status Discussion: Not Discussed Care Teams Loft Worker Apprentice Relationship Specialty Start Date End Date Clinic, No Pcp Or . PCP - General 05/12/17
--- OUTSIDE RECORDS SUMMARY | 2024-10-26 12:32 | XMS_ITS | Clinical Summary ---
Author Organization [facility] Address [address] [place] [address] Care Team Providers Care Leather Etcher Name Role Phone No Ref-Primary, Physician Primary [...] Plan of Treatment Not on file Insurance [place] [address] INSURANCE Advance Directives For more information, please contact: [phone] * Full Code (Latest Code Status on File) Date Activated Date Inactivated Comments 01/25/2018 3:21 AM 01/27/2018 3:56 PM Care Teams Leather Etcher Relationship Specialty Start Date End Date No Ref-Primary, Physician PCP - General 03/23/20
--- OUTSIDE RECORDS SUMMARY | 2024-10-26 12:32 | XMS_ITS | Clinical Summary ---
[facility] Organization [facility] Address [address] [address] Care Team Providers Care Php Programmer Name Role Phone Paula Infante MD Primary Care Provider Source Comments You are receiving this document as you are listed as the primary care provider,follow-up provider, or the patient has been referred to you for consultation.This is in compliance with the Medicare and[facility] EHR Incentive Program,which states Providers who transition their patient to another setting of careor provider of care or refers their patient to another provider of care shouldprovide summary care record for each transition of care or referral. 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 Height 172.7 cm (5' 8) 05/12/2023 7:11 AM CDT Body Mass Index 28.28 05/12/2023 7:11 AM CDT Plan of Treatment Upcoming Encounters Date Type Department Care Team (Late st Contact Info) Description 06/24/2025 9:30 AM CDT Appointment [facility] [address] Neurology [address] [place] [address] Marjorie Wan MD [address] [place] [address] Health Maintenance Due Date Last Done Comments [...] 0 - 199 mg/dL 05/11/2023 10:56 AM [facility] Triglyceride 222(H) <=149 mg/dL 05/11/2023 10:56 AM [facility] HDL Cholesterol 33(L) >=40 mg/dL 10:56 AM [facility] LDL, Calculated 188(H) <130 mg/dL 10:56 AM [facility] Non HDL Chol, Calculated 232(H) <=159 mg/dL 05/11/2023 10:56 AM [facility] Cholesterol/HDL Ratio 8.0 05/11/2023 10:56 AM [facility] Hours Fasting 10.0 8 - 12 Hours 05/11/2023 10:56 AM T [facility] Blood Venipuncture / Unknown 05/11/2023 7:09 AM CDT 05/11/2023 7:09 AM CDT us Min Osorio MD LAB_1 Final Result [facility] [address] [place] [address], [facility] [phone] [facility] [address] [place] [address], [facility] [phone] * (ABNORMAL) Hgb A1C (Expected: Now) - Collect in Lab (05/11/2023 7:09 AM CDT) Hemoglobin A1C 8.9(H) <=5.6 % 05/11/2023 2:36 PM CDT [facility] Estimated Average Glucose (Calc) 209 < 117 mg/dL 05/11/2023 2:36 PM CDT [facility] Comment:Estimated average gl ucose (eAG) converts A1c into glucose units (mg/dL) and estimates average glucose over the past approximately 3 months. The eAG reference interval (<117 mg/dL) corresponds to an A1c of <5.7%. Blood Venipuncture / Unknown 05/11/2023 7:09 AM CDT 05/11/2023 7:09 AM CDT Narrative [facility] - 05/11/2023 2:36 PM CDT For patients not previously diagnosed with diabetes: 5.7-6.4%: Increased risk for diabetes 6.5% and greater: Diagnostic for diabetes For patients diagnosed with diabetes: <8.0%: Goal of therapy for ages 18-75 Clinicians may recommend a higher or lower goal for specific individuals. Min Osorio MD LAB_1 Final Result [facility] [address] [address], [facility] [phone] * (ABNORMAL) Comp Metabolic Panel (03/03/2023 7:51 AM CDT) Sodium 142 136 - 145 mmol/L 03/03/2023 10:12 AM CDT [facility] Potassium 5.0 3.5 - 5.1 mmol/L 03/03/2023 10:12 AM [facility] Chloride 105 98 - 109 mmol/L 03/03/2023 10:12 AM [facility] CO2 26 20 - 29 mmol/L 03/03/2023 10:12 AM [facility] Anion Gap 11 7 - 16 mmol/L 03/03/2023 10:12 AM [facility] Calcium 9.5 8.4 - 10.4 mg/dL 03/03/2023 10:12 AM [facility] BUN 16 7 - 26 mg/dL 03/03/2023 10:12 AM [facility] Creatinine 0.90 0.73 - 1.18 mg/dL 03/03/2023 10:12 AM [facility] Alkaline Phosphatase 56 40 - 150 U/L 03/03/2023 10:12 AM [facility] AST (SGOT) 13 10 - 40 U/L 03/03/2023 10:12 AM [facility] ALT (SGPT) 20 <=55 U/L 03/03/2023 10:12 AM [facility] Bilirubin, Total 0.6 0.2 - 1.2 mg/dL 03/03/2023 10:12 AM [facility] Protein, Total 7.0 6.4 - 8.3 g/dL 03/03/2023 10:12 AM [facility] Albumin 4.1 3.5 - 5.0 g/dL 03/03/2023 10:12 AM [facility] Glucose 298(H) 70 - 100 mg/dL 03/03/2023 10:12 AM [facility] Comment:The given reference range is for the fasting state. Non-fasting reference range for glucose is 70 - 180 mg/dL. Hours Fasting 15 03/03/2023 10:12 AM [facility] GFR, Estimated >60 >60 mL/min/1.7 3m2 03/03/2023 10:12 AM [facility] Blood Venipuncture / Unknown 03/03/2023 7:51 AM CDT 03/03/2023 7:51 AM T us Petra Bermudez MD LAB_1 Final Result Performing Organization Address City/State/[facility] Co de Phone Number [facility] [address] [place] [address], [facility] [phone] [facility] [address] [place] [address], [facility] [phone] * Albumin/Creatinine Ratio,Random Urine (02/10/2023 12:00 PM CDT) Albumin/Creati nine Ratio, Urine, Random 14 <30 mg/g 02/10/2023 4:53 PM CDT [facility] Albumin, Urine, Random 13.7 mg/L 02/10/2023 4:53 PM CDT [facility] Creatinine, Urine, Random 95 >20 mg/dL mg/dL 02/10/2023 4:53 PM CDT [facility] Urine Non-blood Collection / Unknown 02/10/2023 12:00 PM CDT 02/10/2023 12:00 PM CDT Min Osorio MD LAB_1 Final Result Performing Organization Address [facility] Co de Phone Number [facility] [address] [place] [address], [facility] [phone] from Last 3 Months or Most Recently Relevant to Health Maintenance Insurance [employer] Care Teams Php Programmer Relationship Specialty [place] [address] [place] [address] PCP - General Family Practice 05/15/23
--- OUTSIDE RECORDS SUMMARY | 2024-10-26 12:32 | XMS_ITS | Encounter Summary ---
Author Organization [facility] Address [address], [place] [address] Care Team Providers Care Garment Inspector Name Role Phone Paula Infante MD Primary Care Provider Encounter Details Date Type Department Care Team (Late Contact Info) Description 06/21/2016 Correspondence [facility] Occupational and Environmental Medicine [address] [place] [id number] Corona Case MD [address] [place] [address] [phone] PRE-PLACEMENT EXAM Social History Tobacco Use Types [...] CDT Appointment [facility]ty [facility] [address] Neurology [address] [place] [address] Marjorie Wan MD [address] [place] [address] documented as of this encounter Visit Diagnoses Not on filedocumented in this encounter Additional Health Concerns Infection Onset Date Last Indicated Resolved Time R/O COVID19 05/19/2023 05/19/2023 05/20/2023 3:54 AM CDT documented as of this encounter Care Teams Garment Inspector Relationship Specialty [place] [id number] [address] [place] [address] PCP - General Family Practice 05/15/23 documented as of this encounter
[2024-10-26 12:53] LABS: HCO3 VBG 20 mmol/L (21-28); Lactate* 1.3 mmol/L (0.5-1.9); PCO2 VBG 42 mmHG (40-50); PO2 VBG < 30.1 mmHG (25-47); pH VBG 7.291 (7.32-7.43)
[2024-10-26 12:55] LABS: Basophils Percent Auto 0.1 % (0.0-3.0); Eosinophils Percent Auto 0.2 % (0.0-7.0); Hematocrit 42.3 % (37.0-53.0); Hemoglobin* 14.4 gm/dL (13.5-17.5); Immature Granulocytes Pct Auto 2.1 %; Mean Corpuscular HGB Conc 34 gm/dL (32-36); Mean Corpuscular Hemoglobin 29 pg (26-34); Mean Corpuscular Volume 84 fL (80-100); Monocytes Percent Auto 7.9 % (0.0-11.0); Neutrophils Percent Auto 84.7 % (42.0-72.0); Platelet Count* 341 K/uL (140-440); Red Blood Count 5.02 m/uL (4.30-5.90)
[2024-10-26] MEDS: VANCOMYCIN 2 GM/400 ML 2 GM/400 ML PIGGYBACK IVPB (12:59)
[2024-10-26 13:10] LABS: Chloride* 93 mmol/L (96-114); Potassium* 3.7 mmol/L (3.6-5.1); Sodium* 132 mmol/L (135-149)
[2024-10-26 13:13] LABS: Anion Gap 21 mEq/L (7-15); Blood Urea Nitrogen* 15 mg/dL (7-30); Carbon Dioxide* 18 mmol/L (20-32); Creatinine* 0.9 mg/dL (0.5-1.5); Est. Creatinine Clearance* 86.71; Estimated Glomerular Filt Rate 101 ml/min
[2024-10-26 13:14] LABS: Calcium* 9.3 mg/dL (8.4-10.6); Glucose* 330 mg/dL (60-115)
[2024-10-26] MEDS: HYDROmorphone 0.5 mg/0.5 ml inj IVP ×2 (13:18→23:08)
[2024-10-26 13:28] LABS: Slide Review Reflex Yes; White Blood Count* 25.11 K/uL (4.50-11.00)
[2024-10-26 13:29] LABS: Slide Review Acceptable Review (Acceptable)
[2024-10-26] MEDS: HYDROmorphone 0.5 mg/0.5 ml inj 1 MG IVP (14:48)
[2024-10-26] MEDS: INSULIN REGULAR, HUMAN 100 UNIT/ML VIAL IVP (14:48)
[2024-10-26] MEDS: HYALURONIDASE, HUMAN RECOMB. 150 UNIT/ML VIAL 300 UNIT INTRADERMA (15:53)
--- NOTE | 2024-10-26 17:45 | PM.IMHP1 ---
Hospitalist- H&P: ROSEY History of Present Illness Date Seen: 10/26/24 Chief complaint: Thinks has an abscess and in pain Narrative: Johny Mcdonough is a 53 year old male with type 2 diabetes (he is currently he is managing his diabetes with diet alone. It sounds like he has chosen not to be on some diabetes medications, like metformin due to potential side effects. He says he has done his own research on metformin and knows that it can cause neuropathy and other side effects. He has a device at home for checking his A1c and says it has been ?pretty good? lately, but then he says he has not checked in a while. It does not sound like he routinely checks his blood sugars). He also has a history seizures (previously on Keppra. Apparently that caused mood disturbance so his neurologist to come off that and started him on a different seizure med. He does not know the name of his new seizure med. He also has a history of appendectomy and hernia surgery. 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 He notes that he has had an infection on the back of his scalp at the base of his hairline at the top of his neck. It 1st started about a week ago last weekend and was roughly the size of a quarter or a silver dollar. Beginning mid week it started spreading rapidly and became fairly large, now measuring about 10 x 12 cm with some pain and erythema spreading all the way up to the back of both of his ears. He has not had any fevers but he has been feeling a bit weak and run down. It is painful and he rates his pain an 8/10. It has been draining a yellow whitish greenish purulent fluid from multiple spots in the skin. He is concerned he might have a abscess. He does have a previous history of skin infections over the past decade related to minor skin trauma. He has been told that these are staph infections and treated for them. I find no record of him having any type of culture of skin or soft tissue to identify a staph infection. He does not recall previous MRSA colonization. He does not know what his blood sugars been running. He does not regularly check his blood sugar. He tells me that every 2 weeks or so he takes a metformin if he feels his blood sugars are high. He does not feel like he has a fever. No trouble breathing. No vomiting. He is managing his diabetes primarily with diet. He tells me that he will fast for a week every month. During that week he will have a little bit of soup but no other calories. He has lost about 8.5 kg since December of 2022. He has a seizure disorder started in December 2022. He attributes it to high blood sugar. At that time his hemoglobin A1c was 11.4. By May 2023 is hemoglobin A1c was down to 8.9. He has had no seizures since December of 2022. Review of Systems Narrative: He reports he has been feeling a little bit dizzy with his infection. He is not having neck stiffness or rigidity. No trouble with swallowing. [facility] Medical History (Updated 10/26/24 @ 18:05 by Abdelrahman Dave MD) Seizure disorder ?G40.909 - Epilepsy, unspecified, not intractable, without status epilepticus (ICD-10) DM (diabetes mellitus), type 2 ?E11.9 - Type 2 diabetes mellitus without complications (ICD-10) Surgical History (Updated 10/26/24 @ 17:56 by Abdelrahman Dave MD) History of hernia repair ?Z98.890 - Other specified postprocedural states (ICD-10) ?Z87.19 - Personal history of other diseases of the digestive system (ICD-10) S/P appendectomy ?Z90.49 - Acquired absence of other specified parts of digestive tract (ICD-10) Family History (Updated 10/26/24 @ 17:56 by Abdelrahman Dave MD) Mother ALS (amyotrophic lateral sclerosis) Social History (Updated 10/26/24 @ 17:58 by Abdelrahman Dave MD) Narrative: Patient lives in [place]. Healthcare power of commercial litigation attorney is his friend Stephanie. Code status is full. 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 living situation?: I presently have a place to live Problems where you live: no known problems Problems where you live details: n/a In the past 12 months, utilities in danger of being shut off: no In past 12 months, lack of transportation kept you from medical appts, meetings, work, or getting things needed for daily living: no In the past 12 mos, have been you worried that your food would run out before you had money to buy more?: never true In the past 12 mos, the food you bought just didn't last and you didn't have money to buy more?: never true Highest level of school completed/degree received: 12th grade, no diploma Smoking Status: Never smoker Do you use any of these nicotine containing products: None Second hand tobacco smoke exposure: No How often do you have a drink containing alcohol: never How often do you have six or more drinks on one occasion: Monthly AUDIT-C Alcohol total score: 2 Non-prescribed substance use: denies use Caffeine: Yes How often does anyone, including family, friends and others, physically hurt you: never How often does anyone, including family, friends and others, insult or talk down to you: never How often does anyone, including family, friends and others, threaten you with harm: never How often does anyone, including family, friends and others, scream or curse at you: never service: Yes Meds Home Medications and Allergies Allergies Allergy/AdvReac Type Severity Reaction Status Date / Time No Known Drug Allergies Allergy Verified 10/26/24 11:00 Allergies/Adverse Reaction Comments: Lamotrigine 100 mg in the morning and 200 mg in the evening. Occasional metformin Exam Narrative: Exam Narrative: He is alert and appears in no distress. He gives his own history. Eyes normal. Oropharynx with dry mucous membranes. Neck is supple without mass or adenopathy. Inspection of his scalp shows that he has a inflammatory erythematous mass in the posterior scalp just to the left of the midline and just above the hairline on the neck. Some hair loss. Pustules at many of the hair follicles. Skin is quite indurated, warm and red with minimal tenderness, with 1-2 cm of thickness. Not markedly tender. No obvious fluctuance. Respirations are clear to auscultation. Cardiovascular: S1, S2, regular rate and rhythm. Abdomen: Bowel sounds active. Abdomen is soft without tenderness. Extremities with intact pulses and intact sensation. He moves all 4 extremities well. No edema Const: Vital Signs, click to edit/add: Vital Signs - 24 hr 10/26/24 10:51 10/26/24 13:30 10/26/24 13:49 Temperature 98.7 F Pulse Rate 97 Pulse Rate [Pulse Oximeter] Pulse Rate [Right Pulse Oximeter] 110 H 92 Respiratory Rate 18 16 Blood Pressure Blood Pressure [Ri ght Arm] Blood Pressure [Ri ght Upper Arm] 178/94 H 171/111 H Pulse Oximetry 98 97 99 Oxygen Delivery Me thod Room Air Room Air 10/26/24 14:00 10/26/24 14:15 10/26/24 14:30 Temperature Pulse Rate 96 94 93 Pulse Rate [Pulse Oximeter] Pulse Rate [Right Pulse Oximeter] Respiratory Rate 14 Blood Pressure 175/86 H Blood Pressure [Ri ght Arm] Blood Pressure [Ri ght Upper Arm] Pulse Oximetry 98 98 97 Oxygen Delivery Me thod Room Air 10/26/24 14:45 10/26/24 14:51 10/26/24 15:01 Temperature Pulse Rate 93 96 Pulse Rate [Pulse Oximeter] Pulse Rate [Right Pulse Oximeter] Respiratory Rate Blood Pressure 149/90 H 148/107 H Blood Pressure [Ri ght Arm] Blood Pressure [Ri ght Upper Arm] Pulse Oximetry 96 97 Oxygen Delivery Me thod 10/26/24 15:28 10/26/24 15:30 10/26/24 15:33 Temperature Pulse Rate 99 94 95 Pulse Rate [Pulse Oximeter] Pulse Rate [Right Pulse Oximeter] Respiratory Rate Blood Pressure 155/89 H Blood Pressure [Ri ght Arm] Blood Pressure [Ri ght Upper Arm] Pulse Oximetry 97 96 95 Oxygen Delivery Me thod 10/26/24 15:45 10/26/24 16:00 10/26/24 16:02 Temperature Pulse Rate 96 100 99 Pulse Rate [Pulse Oximeter] Pulse Rate [Right Pulse Oximeter] Respiratory Rate 16 Blood Pressure 128/86 Blood Pressure [Ri ght Arm] Blood Pressure [Ri ght Upper Arm] Pulse Oximetry 92 96 95 Oxygen Delivery Me thod Room Air 10/26/24 16:54 10/26/24 16:54 Temperature 99.9 F H Pulse Rate Pulse Rate [Pulse Oximeter] 101 H Pulse Rate [Right Pulse Oximeter] Respiratory Rate 16 16 Blood Pressure Blood Pressure [Ri ght Arm] 143/97 H Blood Pressure [Ri ght Upper Arm] Pulse Oximetry 98 98 Oxygen Delivery Me thod Room Air Room Air Documenting provider has reviewed patient's vital signs: yes Hospitalist - H&P: Result Labs Labs: Short CBC 10/26/24 Range/Units 12:47 WBC 25.11 H* (4.50-11.00) K/uL Hgb 14.4 (13.5-17.5) gm/dL Hct 42.3 (37.0-53.0) % Plt Count 341 (140-440) K/uL [facility] 10/26/24 12:45 Sodium 132 L Potassium 3.7 Chloride 93 L Carbon Dioxide 18 L BUN 15 Creatinine 0.9 Glucose 330 H Calcium 9.3 Assessment and Plan Assessment and plan (1) Cellulitis of neck: Problem comment: Treat with vancomycin pending cultures and clinical course. ED evaluation with ultrasound showed no abscess. If not getting better consider repeat imaging with CT soft tissue of the neck. Status: Acute (2) Kerion: Problem comment: Treat with antifungal, fluconazole Status: Suspected (3) DM (diabetes mellitus), type 2: Problem comment: - A1C 11.9 12/27/22. A1c of 8.9 in May 2023. Rarely takes metformin due to concern of peripheral neuropathy. Manages diabetes with diet including fasting 1 week out of every month In the hospital will continue monitoring blood sugars, corrective insulin and if necessary resume metformin Status: Acute (4) Leukocytosis: Problem comment: Likely due to acute infection. Monitor and trend Status: Acute (5) Metabolic acidosis: Problem comment: Likely due to acute infection. Monitor and trend. Encourage oral fluids. IV fluids. Status: Acute (6) Seizure disorder: Problem comment: Currently on lamotrigine 100 mg the morning and 200 mg in the evening. No seizures since December of 2022 Status: Acute Plan Patient is admitted to the hospital for skin infection in his posterior scalp which is rapidly progressive. Associated with sirs criteria including leukocytosis, tachycardia, borderline fever, metabolic acidosis, hyperglycemia, all indicators of serious infection. Total Time Spent Total Time Spent: Total time spent today is 75 minutes in coordination of care, review of outside records and discussing with patient, friend Stephanie and other providers ongoing evaluation management of his infection and management of his other medical problems, particularly diabetes.
[2024-10-26] MEDS: INSULIN ASPART 100 UNIT/ML SUBCUT ×2 (19:23→20:54)
[2024-10-26] MEDS: LACTATED RINGERS 500 ML 500 ML IV (19:23)
--- NOTE | 2024-10-26 19:37 | PC.NURSE ---
Pt has large area involving entire back of hairline and neck which included erythremia, drainage, & edema.
[2024-10-26] MEDS: lamoTRIgine 100 MG TABLET 200 MG PO (20:53)
[2024-10-27 02:45] VITALS: BP 142/76; PULSE 102; RESP 16; TEMP 37; O2SAT 93
--- NOTE | 2024-10-27 05:51 | PC.NURSE ---
Shift note: Back of the head continue to swell and discharges from what appears to be multiple vesicles.. Pain rated at 9/10 and deluded given which appeared effective. Alert and oriented. Vitally stable. Pt in SBA to independent in room. No fever recorded.
[2024-10-27] MEDS: VANCOMYCIN 1.25 GM/250 ML 1.25 GM/250 ML PIGGYBACK IVPB ×2 (06:02→18:10)
[2024-10-27] MEDS: SODIUM CHLORIDE 0.9 % (FLUSH) 10 ML SYRINGE 5 ML IVF ×2 (06:04→20:49)
[2024-10-27 06:51] LABS: Basophils Percent Auto 0.1 % (0.0-3.0); Eosinophils Percent Auto 0.3 % (0.0-7.0); Hematocrit 37.2 % (37.0-53.0); Hemoglobin* 12.6 gm/dL (13.5-17.5); Immature Granulocytes Pct Auto 2.5 %; Lymphocytes Percent Auto 4.9 % (20-44); Mean Corpuscular HGB Conc 34 gm/dL (32-36); Mean Corpuscular Hemoglobin 29 pg (26-34); Mean Corpuscular Volume 85 fL (80-100); Monocytes Percent Auto 9.3 % (0.0-11.0); Neutrophils Percent Auto 82.9 % (42.0-72.0); Platelet Count* 309 K/uL (140-440); RDW Coefficient of Variation % 11.9 % (11.5-15.5); Red Blood Count 4.38 m/uL (4.30-5.90)
[2024-10-27 06:57] LABS: Slide Review Reflex Yes
[2024-10-27 07:16] LABS: Chloride* 95 mmol/L (96-114); Potassium* 3.8 mmol/L (3.6-5.1)
[2024-10-27 07:19] LABS: Blood Urea Nitrogen* 16 mg/dL (7-30); Carbon Dioxide* 19 mmol/L (20-32); Creatinine* 0.9 mg/dL (0.5-1.5); Est. Creatinine Clearance* 86.71; Estimated Glomerular Filt Rate 101 ml/min
[2024-10-27 07:20] LABS: Calcium* 8.9 mg/dL (8.4-10.6); Glucose* 322 mg/dL (60-115)
[2024-10-27 07:34] LABS: Slide Review Acceptable Review (Acceptable)
[2024-10-27 07:47] LABS: C Reactive Protein* 17.6 mg/dL (0.5-1.0)
[2024-10-27] MEDS: HYDROmorphone 0.5 mg/0.5 ml inj IVP ×2 (07:57→12:25)
[2024-10-27] MEDS: INSULIN ASPART 100 UNIT/ML SUBCUT ×6 (07:57→20:53)
[2024-10-27 08:06] VITALS: BP 151/86; PULSE 100; RESP 18; TEMP 37.4; O2SAT 98
[2024-10-27 09:06] LABS: Anion Gap 17 mEq/L (7-15); Sodium* 131 mmol/L (135-149)
[2024-10-27] MEDS: FLUCONAZOLE 100 MG TABLET 200 MG PO (09:22)
[2024-10-27 10:42] LABS: HCO3 VBG 24 mmol/L (21-28); PCO2 VBG 41 mmHG (40-50); PO2 VBG 32.2 mmHG (25-47); pH VBG 7.373 (7.32-7.43)
[2024-10-27 11:13] VITALS: BP 138/85; PULSE 98; RESP 16; TEMP 37.2; O2SAT 97
[2024-10-27] MEDS: lamoTRIgine 100 MG TABLET PO ×2 (11:16→20:49)
[2024-10-27] MEDS: INSULIN GLARGINE,HUM.REC.ANLOG 100 UNIT/ML INSULN.PEN 12 UNIT SUBCUT (12:22)
[2024-10-27] MEDS: LIDOCAINE 1% MDV 20 ML INJECTION (12:52)
--- NOTE | 2024-10-27 13:44 | P.GSCN_ITS ---
History of Present Illness Consult details Date Seen: 10/27/24 Consult date: 10/27/24 Narrative: The patient is a 53-year-old male with poorly controlled type 2 diabetes managed with diet who presented to the emergency department yesterday with an infection on his scalp. He states that this has been present for approximately 1 week. I started out to be the size of a quarter and then grew. It became more painful and began to drain approximately 3 days ago. He has a history of previous skin infections and also has had a the septic elbow in the past per the patient. He says that he has had cellulitis of his neck many years ago. He denies noting a lump in the area in between episodes of cellulitis. He states that he does not have a primary care doctor but does check his A1c home and says that it has been down to 6 at times. In the ER, ultrasound was placed on his neck and there was no obvious fluid collection noted. White blood cell count was noted to be 25. He is growing Staph aureus in his blood culture. [facility] Medical History (Updated 10/26/24 @ 18:05 by Abdelrahman Dave MD) Seizure disorder ?G40.909 - Epilepsy, unspecified, not intractable, without status epilepticus (ICD-10) DM (diabetes mellitus), type 2 ?E11.9 - Type 2 diabetes mellitus without complications (ICD-10) Surgical History (Updated 10/26/24 @ 17:56 by Abdelrahman Dave MD) History of hernia repair ?Z98.890 - Other specified postprocedural states (ICD-10) ?Z87.19 - Personal history of other diseases of the digestive system (ICD-10) S/P appendectomy ?Z90.49 - Acquired absence of other specified parts of digestive tract (ICD- 10) Family History (Updated 10/26/24 @ 17:56 by Abdelrahman Dave MD) Mother ALS (amyotrophic lateral sclerosis) Social History (Updated 10/26/24 @ 17:58 by Abdelrahman Dave MD) Narrative: Patient lives in [place]. Healthcare power of finance attorney is his friend Stephanie. Code status is full. 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 living situation?: I presently have a place to live Problems where you live: no known problems Problems where you live details: n/a In the past 12 months, utilities in danger of being shut off: no In past 12 months, lack of transportation kept you from medical appts, meetings, work, or getting things needed for daily living: no In the past 12 mos, have been you worried that your food would run out before you had money to buy more?: never true In the past 12 mos, the food you bought just didn't last and you didn't have money to buy more?: never true Highest level of school completed/degree received: 12th grade, no diploma Smoking Status: Never smoker Do you use any of these nicotine containing products: None Second hand tobacco smoke exposure: No How often do you have a drink containing alcohol: never How often do you have six or more drinks on one occasion: Monthly AUDIT-C Alcohol total score: 2 Non-prescribed substance use: denies use Caffeine: Yes How often does anyone, including family, friends and others, physically hurt you : never How often does anyone, including family, friends and others, insult or talk down to you: never How often does anyone, including family, friends and others, threaten you with harm: never How often does anyone, including family, friends and others, scream or curse at you: never service: Yes Meds Home Medications and Allergies Home Medications ?Medication ?Instructions ?Recorded ?Confirmed ?Type lamotrigine 100 mg tablet mg 10/27/24 History Allergies Allergy/AdvReac Type Severity Reaction Status Date / Time No Known Drug Allergies Allergy Verified 10/26/24 11:00 Exam Narrative: Exam Narrative: General: No acute distress HEENT: On the patient's posterior neck she has a 10 cm firm area of cellulitis with central fluctuance. There multiple pustules and there is purulent drainage noted which appears to be coming from the more central portion. Const: Vital Signs, click to edit/add: Vital Signs - 24 hr 10/26/24 13:49 10/26/24 14:00 10/26/24 14:15 Temperature Pulse Rate 97 96 94 Pulse Rate [Pulse Oximeter] Respiratory Rate Blood Pressure Blood Pressure [Ri ght Arm] Pulse Oximetry 99 98 98 Oxygen Delivery Me thod 10/26/24 14:30 10/26/24 14:45 10/26/24 14:51 Temperature Pulse Rate 93 93 96 Pulse Rate [Pulse Oximeter] Respiratory Rate 14 Blood Pressure 175/86 H 149/90 H Blood Pressure [Ri ght Arm] Pulse Oximetry 97 96 97 Oxygen Delivery Me thod Room Air 10/26/24 15:01 10/26/24 15:28 10/26/24 15:30 Temperature Pulse Rate 99 94 Pulse Rate [Pulse Oximeter] Respiratory Rate Blood Pressure 148/107 H Blood Pressure [Ri ght Arm] Pulse Oximetry 97 96 Oxygen Delivery Me thod 10/26/24 15:33 10/26/24 15:45 10/26/24 16:00 Temperature Pulse Rate 95 96 100 Pulse Rate [Pulse Oximeter] Respiratory Rate Blood Pressure 155/89 H Blood Pressure [Ri ght Arm] Pulse Oximetry 95 92 96 Oxygen Delivery Me thod 10/26/24 16:02 10/26/24 16:54 10/26/24 16:54 Temperature 99.9 F H Pulse Rate 99 Pulse Rate [Pulse Oximeter] 101 H Respiratory Rate 16 16 16 Blood Pressure 128/86 Blood Pressure [Ri ght Arm] 143/97 H Pulse Oximetry 95 98 98 Oxygen Delivery Me thod Room Air Room Air Room Air 10/26/24 19:00 10/26/24 22:24 10/26/24 22:24 Temperature 98.6 F 98.6 F Pulse Rate Pulse Rate [Pulse Oximeter] 111 H 110 H 110 H Respiratory Rate 16 16 16 Blood Pressure Blood Pressure [Ri ght Arm] 165/89 H 146/80 H Pulse Oximetry 97 92 Oxygen Delivery Me thod Room Air Room Air 10/27/24 02:45 10/27/24 08:06 10/27/24 11:13 Temperature 98.6 F 99.3 F 99.0 F Pulse Rate Pulse Rate [Pulse Oximeter] 102 H 100 98 Respiratory Rate 16 18 16 Blood Pressure Blood Pressure [Ri ght Arm] 142/76 H 151/86 H 138/85 Pulse Oximetry 93 98 97 Oxygen Delivery Me thod Room Air Room Air Room Air Results Labs Labs: Abnormal lab results 10/26/24 10/27/24 Range/Units 12:47 06:12 WBC 25.40 H* (4.50-11.00) K/uL Hgb 12.6 L (13.5-17.5) gm/dL Neut % (Auto) 82.9 H (42.0-72.0) % Lymph % (Auto) 4.9 L (20-44) % Neut # (Auto) 21.10 H (1.7-7.0) K/uL Evans # (Auto) 2.40 H (0.00-0.90) K/UL Abs Immat Gran (auto) 0.60 H (0.00-0.30) K/uL Sodium 131 L (135-149) mmol/L Chloride 95 L (96-114) mmol/L Carbon Dioxide 19 L (20-32) mmol/L Anion Gap 17 H (7-15) mEq/L Glucose 322 H (60-115) mg/dL Hemoglobin A1c 13.0 H (0-5.6) % C-Reactive Protein 17.6 H (0.5-1.0) mg/dL Diabetes panel 10/26/24 10/27/24 Range/Units 12:47 06:12 Sodium 131 L (135-149) mmol/L Potassium 3.8 (3.6-5.1) mmol/L Chloride 95 L (96-114) mmol/L Carbon Dioxide 19 L (20-32) mmol/L BUN 16 (7-30) mg/dL Creatinine 0.9 (0.5-1.5) mg/dL Glucose 322 H (60-115) mg/dL Hemoglobin A1c 13.0 H (0-5.6) % Calcium 8.9 (8.4-10.6) mg/dL Calcium panel 10/27/24 Range/Units 06:12 Calcium 8.9 (8.4-10.6) mg/dL Pituitary panel 10/27/24 Range/Units 06:12 Sodium 131 L (135-149) mmol/L Potassium 3.8 (3.6-5.1) mmol/L Chloride 95 L (96-114) mmol/L Carbon Dioxide 19 L (20-32) mmol/L BUN 16 (7-30) mg/dL Creatinine 0.9 (0.5-1.5) mg/dL Glucose 322 H (60-115) mg/dL Calcium 8.9 (8.4-10.6) mg/dL Adrenal panel 10/27/24 Range/Units 06:12 Sodium 131 L (135-149) mmol/L Potassium 3.8 (3.6-5.1) mmol/L Chloride 95 L (96-114) mmol/L Carbon Dioxide 19 L (20-32) mmol/L BUN 16 (7-30) mg/dL Creatinine 0.9 (0.5-1.5) mg/dL Glucose 322 H (60-115) mg/dL Calcium 8.9 (8.4-10.6) mg/dL All other labs normal. General Surgery Procedures I/D Type: abscess Site: scalp Anesthetic used: lidocaine 1% Technique: incised with #11 blade Amount of fluid (mL): 3 (A small amount of purulent fluid was drained from a cavity located in the subcutaneous space measuring 5 x 2 x 1 cm.) Irrigation: Yes Packing used?: plain Complications: bleeding (Cautery and Surgicel used for hemostasis.) Progress Note:A&P Assessment and plan (1) Seizure disorder: Status: Acute (2) Leukocytosis: Status: Acute (3) DM (diabetes mellitus), type 2: Status: Acute (4) Cellulitis of neck: Status: Acute Plan The patient is a 53-year-old male with cellulitis of his posterior neck and purulent drainage. On exam it appeared as though he had a fluctuant area in the center. This was opened and drained today. There was a small amount of purulence and blood appear to be a central cavity, however there was no large pocket of purulence noted. -recommend daily dressing changes with Vashe-soaked gauze. -okay to remove and replace outer dressing if this becomes saturated with fluid or blood. -for any bleeding through the dressing, remove outer dressing in hold pressure with the patient's head of bed elevated. -continue antibiotics per hospitalist. -follow up culture results. -if patient's condition worsens, recommend CT scan with IV contrast looking for deeper undrained collection.
[2024-10-27] MEDS: OXYCODONE 5 MG TABLET PO (14:11)
--- NOTE | 2024-10-27 15:31 | PM.IMPN1 ---
Progress Note: A&P Assessment and plan (1) Staphylococcus aureus bacteremia: Problem details: -will do daily blood cultures to assure clearance -echo today was reassuring for any obvious valve vegetations -will narrow antibiotics once sensitivities return -no obvious sepsis associated with this bacteremia Status: Acute (2) Kerion: Problem details: Treat with antifungal, fluconazole Status: Suspected (3) Cellulitis of neck: Problem details: -surgical consult bedside today. I and D bedside. -treating with broad-spectrum Gram-positive coverage with IV vancomycin -6 mg/kg/day of oral fluconazole divided b.i.d. -if not improving consider soft tissue neck CT with contrast Status: Acute (4) Seizure disorder: Problem details: Currently on lamotrigine 100 mg the morning and 200 mg in the evening. No seizures since December of 2022 -will reduce Lamictal dosing to 100 mg b.i.d. given high-dose fluconazole therapy Status: Acute (5) Leukocytosis: Problem details: Likely due to acute infection. Monitor and trend Status: Acute (6) DM (diabetes mellitus), type 2: Problem details: -non compliant. -A1c 13.0 -initiate metformin therapy 500 mg p.o. b.i.d. with food. Metabolic acidosis has resolved. -Lantus, insulin glargine, 10 units q.day -mealtime insulin, 4 units t.i.d. with food -sliding scale for additional coverage Status: Acute Subjective Date Seen: 10/27/24 Interval history: Daily Progress Note - Hospital Medicine #: 2 CC: Acute kerion, cellulitis, staph bacteremia; uncontrolled diabetes 24 HOUR UPDATE: tmax 99.9. hypertensive. mildly tachycardiac. Notable Labs, Micro, Rads, Interventions: White blood cell count remains elevated at 25.4, 82.9% neutrophils acidosis has resolved Mild hyponatremia. Normal renal function Glucose has been 250 to 322. A1c is 13.0 Lactate is normal CRP 17.6 Blood culture is growing Staph aureus MRSA screening is pending New wound cultures were obtained today during I and D, previous wound culture from the ED showing Gram-positive cocci in clusters Objective: Vitals: see above Lungs: Clear. Cardiac: S1S2. skin: large 10cm area of indurated, thickened skin with multiple pustular eruptions. No significant lymphadenopathy appreciated. Central area of fluctuance questioned. See pictures in chart notes. Disposition/Potential discharge - home in the next 2-3 days Today I spent 50minutes seeing the patient, reviewing Expanse and EPIC notes/diagnostics, discussing the care plan with our care time that includes social work, PT/OT, pharmacy, RT, snf and documenting my impressions and plan in the medical record. Exam Const: Vital Signs, click to edit/add: Vital Signs - 24 hr 10/26/24 15:33 10/26/24 15:45 10/26/24 16:00 Temperature Pulse Rate 95 96 100 Pulse Rate [Pulse Oximeter] Respiratory Rate Blood Pressure 155/89 H Blood Pressure [Ri ght Arm] Pulse Oximetry 95 92 96 Oxygen Delivery Me thod 10/26/24 16:02 10/26/24 16:54 10/26/24 16:54 Temperature 99.9 F H Pulse Rate 99 Pulse Rate [Pulse Oximeter] 101 H Respiratory Rate 16 16 16 Blood Pressure 128/86 Blood Pressure [Ri ght Arm] 143/97 H Pulse Oximetry 95 98 98 Oxygen Delivery Me thod Room Air Room Air Room Air 10/26/24 19:00 10/26/24 22:24 10/26/24 22:24 Temperature 98.6 F 98.6 F Pulse Rate Pulse Rate [Pulse Oximeter] 111 H 110 H 110 H Respiratory Rate 16 16 16 Blood Pressure Blood Pressure [Ri ght Arm] 165/89 H 146/80 H Pulse Oximetry 97 92 Oxygen Delivery Me thod Room Air Room Air 10/27/24 02:45 10/27/24 08:06 10/27/24 11:13 Temperature 98.6 F 99.3 F 99.0 F Pulse Rate Pulse Rate [Pulse Oximeter] 102 H 100 98 Respiratory Rate 16 18 16 Blood Pressure Blood Pressure [Ri ght Arm] 142/76 H 151/86 H 138/85 Pulse Oximetry 93 98 97 Oxygen Delivery Me thod Room Air Room Air Room Air Labs Labs: Laboratory Results - last 24 hr 10/26/24 10/26/24 10/27/24 12:47 15:49 06:12 WBC 25.40 H* RBC 4.38 Hgb 12.6 L Hct 37.2 MCV 85 MCH 29 MCHC 34 RDW Coeff of Michelle 11.9 Plt Count 309 Neut % (Auto) 82.9 H Lymph % (Auto) 4.9 L [place] % (Auto) 9.3 Eos % (Auto) 0.3 Baso % (Auto) 0.1 Neut # (Auto) 21.10 H Lymph # (Auto) 1.20 [place] # (Auto) 2.40 H Eos # (Auto) 0.10 Baso # (Auto) 0.00 Abs Immat Gran (auto) 0.60 H Imm/Tot Granulo (auto) 2.5 Diff Slide Review Acceptable Review VBG pH VBG pCO2 VBG pO2 VBG HCO3 Sodium 131 L Potassium 3.8 Chloride 95 L Carbon Dioxide 19 L Anion Gap 17 H BUN 16 Creatinine 0.9 Estimated Creat Clear 86.71 Estimated GFR 101 Glucose 322 H Hemoglobin A1c 13.0 H Calcium 8.9 C-Reactive Protein 17.6 H Lab Acknowledgement Test Added 10/27/24 10:35 WBC RBC Hgb Hct MCV MCH MCHC RDW Coeff of Michelle Plt Count Neut % (Auto) Lymph % (Auto) [place] % (Auto) Eos % (Auto) Baso % (Auto) Neut # (Auto) Lymph # (Auto) [place] # (Auto) Eos # (Auto) Baso # (Auto) Abs Immat Gran (auto) Imm/Tot Granulo (auto) Diff Slide Review VBG pH 7.373 VBG pCO2 41 VBG pO2 32.2 VBG HCO3 24 Sodium Potassium Chloride Carbon Dioxide Anion Gap BUN Creatinine Estimated Creat Clear Estimated GFR Glucose Hemoglobin A1c Calcium C-Reactive Protein Lab Acknowledgement
[2024-10-27 16:40] VITALS: BP 137/83; PULSE 108; RESP 12; TEMP 37.2; O2SAT 94
[2024-10-27] MEDS: ACETAMINOPHEN 325 MG TABLET 650 MG PO (18:10)
--- NOTE | 2024-10-27 18:28 | PC.NURSE ---
Posterior head and neck reddened and warm with numerous pin-point pustules draining yellow, green-tinged exudate. I&D completed by Dr. Kearns. Posterior head dressing moderately saturated with serosanguinous drainage, dressing changed x 1. Afebrile.
[2024-10-27 19:00] VITALS: BP 126/85; PULSE 105; RESP 18; TEMP 36.8; O2SAT 94
[2024-10-27] MEDS: NAPROXEN 250 MG TABLET 500 MG PO (19:48)
[2024-10-27] MEDS: OXYCODONE 5 MG TABLET 2.5 MG PO (20:48)
[2024-10-27] MEDS: FLUCONAZOLE 100 MG TABLET 250 MG PO (20:49)
[2024-10-27 23:00] VITALS: BP 109/66; PULSE 82; RESP 16; TEMP 36.6; O2SAT 96
[2024-10-28] MEDS: OXYCODONE 5 MG TABLET 2.5 MG PO (02:55)
[2024-10-28 03:00] VITALS: BP 127/75; PULSE 72; RESP 18; TEMP 36.4; O2SAT 100
[2024-10-28] MEDS: VANCOMYCIN 1.25 GM/250 ML 1.25 GM/250 ML PIGGYBACK IVPB (06:01)
[2024-10-28 06:41] LABS: Basophils Percent Auto 0.1 % (0.0-3.0); Eosinophils Percent Auto 0.9 % (0.0-7.0); Hematocrit 37.1 % (37.0-53.0); Hemoglobin* 12.8 gm/dL (13.5-17.5); Lymphocytes Percent Auto 7.9 % (20-44); Mean Corpuscular HGB Conc 35 gm/dL (32-36); Mean Corpuscular Hemoglobin 29 pg (26-34); Mean Corpuscular Volume 84 fL (80-100); Monocytes Percent Auto 7.6 % (0.0-11.0); Neutrophils Percent Auto 79.5 % (42.0-72.0); Platelet Count* 296 K/uL (140-440); White Blood Count* 20.46 K/uL (4.50-11.00)
[2024-10-28 06:53] LABS: Slide Review Reflex No
[2024-10-28 07:00] VITALS: BP 131/82; PULSE 77; RESP 16; O2SAT 99
[2024-10-28 07:05] LABS: Chloride* 94 mmol/L (96-114); Sodium* 131 mmol/L (135-149)
[2024-10-28 07:06] LABS: Potassium* 3.1 mmol/L (3.6-5.1)
[2024-10-28 07:08] LABS: Creatinine* 0.9 mg/dL (0.5-1.5); Est. Creatinine Clearance* 86.71; Estimated Glomerular Filt Rate 101 ml/min
[2024-10-28 07:09] LABS: Anion Gap 9 mEq/L (7-15); Blood Urea Nitrogen* 17 mg/dL (7-30); Carbon Dioxide* 28 mmol/L (20-32); Glucose* 236 mg/dL (60-115)
[2024-10-28 07:23] LABS: C Reactive Protein* 18.9 mg/dL (0.5-1.0)
[2024-10-28 07:40] VITALS: BP 109/63; PULSE 86; RESP 18; TEMP 36.7; O2SAT 99
--- NOTE | 2024-10-28 07:54 | CRLHL7_ITS ---
For Patients: As a result of the 21st Century Cures Act, medical imaging exams and procedure reports are released immediately into your electronic medical record. You may view this report before your referring provider. If you have questions, please contact your health care provider. INDICATION: DEEP ABSCESS IN POST SCALP, NECK, AND LEFT AURICULAR PAIN. BEDSIDE DEBRIDEMENT 10/27/24, STILL DRAINING, STAPH PRESENT TECHNIQUE: CT of the neck with 79 ml Isovue 370 iodinated contrast agent. Coronal and sagittal reconstructions are included. COMPARISON: 08/13/2012 CT neck. FINDINGS: There is extensive cutaneous and subcutaneous fatty induration in the left posterior suboccipital scalp extending at least 11 cm craniocaudally with large defect in the skin presumed open wound and surrounding cellulitis. Associated skin thickening and diffuse fat stranding of the subcutaneous fat. There are enhancing components towards the right lateral and left lateral aspect of the inflammatory process. There is probably largely represents phlegmonous change. Some of these enhancing foci are ring-enhancing suggesting abscess formation. For exam example, on the right on image 25 is a 12 mm collection. More laterally on the left there is a series of collections which are best demonstrated on coronal image 89 and sagittal image 20. In aggregate, these measure up to about 2 cm in greatest dimension. Few prominent bilateral level 5 lymph nodes likely reactive in etiology. The oral cavity, nasopharyngeal, oropharyngeal and hypopharyngeal mucosal spaces are normal. No periapical dental disease. The supraglottic, glottic and infraglottic larynx are normal. The airway including the trachea is normal and is patent. Mild mucosal thickening in the maxillary sinuses. Rightward deviation of the nasal septum. The parotid glands, submandibular and sublingual glands are normal in appearance. The thyroid gland is normal in appearance. The vascular structures opacify normally with contrast material. No suspicious lytic or blastic osseous lesions. Mild mucosal thickening in the maxillary sinuses. Visualized paranasal sinuses and mastoid air cells are clear. Benign intraosseous hemangioma in the T1 vertebral body. Visualized orbital and intracranial contents are normal. Supraclavicular regions, mediastinum and soft tissues of the imaged chest wall are normal. Visualized portions of the upper lungs are clear. IMPRESSION: 1. Diffuse subcutaneous cellulitis along the left posterior suboccipital and left upper neck soft tissues and open wound. Several small rim enhancing and partially rim enhancing structures in the deep subcutaneous fat concerning for phlegmon and small abscesses. 2. Few prominent bilateral level 5 lymph nodes likely reactive in etiology. Otherwise unremarkable CT of the neck. Please note that all CT scans at this facility use dose modulation, iterative reconstruction, and/or weight-based dosing when appropriate to reduce radiation dose to as low as reasonably achievable. Dictated by Jareth Araiza MD @ 10/29/2024 9:51:06 AM (Electronically Signed)
[2024-10-28] MEDS: INSULIN ASPART 100 UNIT/ML SUBCUT ×7 (08:13→20:51)
[2024-10-28] MEDS: INSULIN GLARGINE,HUM.REC.ANLOG 100 UNIT/ML INSULN.PEN 10 UNIT SUBCUT (08:17)
[2024-10-28] MEDS: FLUCONAZOLE 100 MG TABLET 250 MG PO ×2 (08:27→20:50)
[2024-10-28] MEDS: NAPROXEN 250 MG TABLET 500 MG PO (08:28)
[2024-10-28] MEDS: lamoTRIgine 100 MG TABLET PO ×2 (08:28→20:50)
[2024-10-28] MEDS: METFORMIN 500 MG TABLET PO ×2 (08:28→18:42)
[2024-10-28] MEDS: SODIUM CHLORIDE 0.9 % (FLUSH) 10 ML SYRINGE 5 ML IVF ×2 (08:30→20:49)
[2024-10-28 11:00] VITALS: BP 135/79; PULSE 85; RESP 16; TEMP 36.4; O2SAT 99
--- NOTE | 2024-10-28 11:58 | PM.GSPN ---
Subjective Subjective Date Seen: 10/28/24 Interval history: No significant bleeding overnight. Patient stated that it began to burn and be painful overnight. He did get more medication for pain. Exam Narrative: Exam Narrative: General: No acute distress HEENT: Patient remains with large amount of cellulitis and there is purulent drainage coming from the wound. When the packing is removed, there are pinpoint areas of purulence coming from the base of the wound. Const: Vital Signs, click to edit/add: Vital Signs - 24 hr 10/27/24 16:40 10/27/24 19:00 10/27/24 23:00 Temperature 99.0 F 98.3 F Pulse Rate [Pulse Oximeter] 108 H 105 H 82 Respiratory Rate 12 18 16 Blood Pressure [Ri ght Arm] 137/83 126/85 Pulse Oximetry 94 94 Oxygen Delivery Me thod Room Air 10/27/24 23:00 10/28/24 03:00 10/28/24 07:00 Temperature 97.8 F 97.5 F L Pulse Rate [Pulse Oximeter] 82 72 77 Respiratory Rate 16 18 16 Blood Pressure [Ri ght Arm] 109/66 127/75 Pulse Oximetry 96 100 Oxygen Delivery Me thod Room Air Room Air 10/28/24 07:00 Temperature Pulse Rate [Pulse Oximeter] 77 Respiratory Rate 16 Blood Pressure [Ri ght Arm] 131/82 Pulse Oximetry 99 Oxygen Delivery Me thod Room Air Labs/Imaging Labs Labs: White blood cell count today is down to 20. CRP is stable at 18. Imaging Imaging: CT of the head and neck done today reviewed by myself and discussed with Radiology. This shows a large amount of inflammation abutting the occipital muscle. No discrete drainable fluid collection noted. Appears to be a large phlegmon. Progress Note:A&P Assessment and plan (1) Staphylococcus aureus bacteremia: Status: Acute (2) Cellulitis of neck: Status: Acute (3) Leukocytosis: Status: Acute (4) DM (diabetes mellitus), type 2: Status: Acute Plan The patient is a 53-year-old male with controlled diabetes, staph bacteremia and phlegmon/cellulitis of his posterior neck. This was opened yesterday at bedside, however there was no large fluid collection encountered, rather there was purulence coming from diffuse areas of the skin and within the wound. CT scan did not show discrete fluid collection to drain. Recommend continuing antibiotics and wound cares. Recommend BID dressing changes with that. Recommend soaking the area and scrubbing the area with chlorhexidine scrub brushes. If patient fails to improve then we will repeat imaging to assess for fluid collection accumulation.
--- NOTE | 2024-10-28 13:04 | P.IMPN_ITS ---
Progress Note: A&P Assessment and plan (1) Staphylococcus aureus bacteremia: Problem details: -will do daily blood cultures to assure clearance -echo today was reassuring for any obvious valve vegetations -MSSA presumed based on -mrsa nasal swab and wound culture. -changing vanc to iv ancef 2 q 8 on 10/28. first dose of vanc was evening of 10/26 -no obvious sepsis associated with this bacteremia Status: Acute (2) Cellulitis of neck: Problem details: -surgical consult bedside 10/27 (Dr. Kearns). I and D bedside. -s/p Vanc, as of 10/28 on IV Ancef -6 mg/kg/day of oral fluconazole divided b.i.d.to cover fungal element of the acute kerion infection -if not improving consider soft tissue neck CT with contrast Status: Acute (3) Kerion: Problem details: high dose PO fluconazole 250mg BID x 2 weeks, consider 3rd Status: Suspected (4) Seizure disorder: Problem details: Currently on lamotrigine 100 mg the morning and 200 mg in the evening (although it doesn't appear he has been taking this). No seizures since December of 2022 -will reduce Lamictal dosing to 100 mg b.i.d. given high-dose fluconazole therapy Status: Acute (5) Leukocytosis: Problem details: Likely due to acute infection. Monitor and trend Status: Acute (6) DM (diabetes mellitus), type 2: Problem details: -non compliant. -A1c 13.0 -initiate metformin therapy 500 mg p.o. b.i.d. with food. Metabolic acidosis has resolved. -Lantus, insulin glargine, 20 (up from 10) units q.day -mealtime insulin, 4 units t.i.d. with food -sliding scale for additional coverage Status: Acute Subjective Date Seen: 10/28/24 Interval history: Daily Progress Note - Hospital Medicine #: 3 CC: Acute kerion, cellulitis, staph bacteremia; uncontrolled diabetes 24 HOUR UPDATE: tmax 99. blood pressure and tachycardia have resolved seems mostly comfortable. c/o of pressure in his neck as expected. doesn't like how opioids make him feel. Notable Labs, Micro, Rads, Interventions: White blood cell count remains elevated but is down to 20.46. 79.5% neutrophils acidosis has resolved Mild hyponatremia, mild hypokalemia Normal renal function Glucose has been 231-293. A1c is 13.0 Lactate is normal CRP 17.6 --> uptrending to 18.9 Blood culture is growing Staph aureus - MSSA presumed MRSA screening is negative. wound culture growing linton sensitive staph aureus Objective: Vitals: see above Lungs: Clear. Cardiac: S1S2. skin: large 10cm area of indurated, thickened skin with multiple pustular eruptions. No significant lymphadenopathy appreciated. Central area of fluctuance questioned. Disposition/Potential discharge - home in the next 2-3 days likely will need midline for antibiotics Today I spent 50minutes seeing the patient, reviewing Expanse and EPIC notes/diagnostics, discussing the care plan with our care time that includes social work, PT/OT, pharmacy, RT, [facility] and documenting my impressions and plan in the medical record. Exam 2 Const: Vital Signs, click to edit/add: Vital Signs - 24 hr 10/27/24 16:40 10/27/24 19:00 10/27/24 23:00 Temperature 99.0 F 98.3 F Pulse Rate [Pulse Oximeter] 108 H 105 H 82 Respiratory Rate 12 18 16 Blood Pressure [Ri t Arm] 137/83 126/85 Pulse Oximetry 94 94 Oxygen Delivery Me thod Room Air 10/27/24 23:00 10/28/24 03:00 10/28/24 07:00 Temperature 97.8 F 97.5 F L Pulse Rate [Pulse Oximeter] 82 72 77 Respiratory Rate 16 18 16 Blood Pressure [Ri t Arm] 109/66 127/75 Pulse Oximetry 96 100 Oxygen Delivery Me thod Room Air Room Air 10/28/24 07:00 Temperature Pulse Rate [Pulse Oximeter] 77 Respiratory Rate 16 Blood Pressure [Ri ght Arm] 131/82 Pulse Oximetry 99 Oxygen Delivery Me thod Room Air Labs Labs: Laboratory Results - last 24 hr 10/28/24 06:15 WBC 20.46 H RBC 4.40 Hgb 12.8 L Hct 37.1 MCV 84 MCH 29 MCHC 35 RDW Coeff of Michelle 12.0 Plt Count 296 Neut % (Auto) 79.5 H Lymph % (Auto) 7.9 L Bent % (Auto) 7.6 Eos % (Auto) 0.9 Baso % (Auto) 0.1 Neut # (Auto) 16.30 H Lymph # (Auto) 1.60 Bent # (Auto) 1.60 H Eos # (Auto) 0.20 Baso # (Auto) 0.00 Abs Immat Gran (auto) 0.80 H Imm/Tot Granulo (auto) 4.0 Sodium 131 L Potassium 3.1 L Chloride 94 L Carbon Dioxide 28 Anion Gap 9 BUN 17 Creatinine 0.9 Estimated Creat Clear 86.71 Estimated GFR 101 Glucose 236 H Calcium 9.0 C-Reactive Protein 18.9 H
--- NOTE | 2024-10-28 13:10 | W.PM.CROSSCO ---
Subjective Subjective Date Seen: 10/26/24 Objective Objective Data Details: 10/26 - before bedside debridement
[2024-10-28] MEDS: KETOROLAC 30 MG/ML inj IVP ×2 (14:24→20:50)
[2024-10-28 15:00] VITALS: BP 128/84; PULSE 86; RESP 16; TEMP 36.7; O2SAT 99
--- NOTE | 2024-10-28 15:21 | NUTR.NU ---
RDn with verbal MD order for diet education related to diabetes. RDN attempted to visit with patient, however patient not available. Will attempt to provided education at later date.
[2024-10-28] MEDS: CEFAZOLIN 2 GM in 0.9 % SODIUM CHLORIDE Mini-bag 100 ML IVPB (15:37)
--- NOTE | 2024-10-28 20:10 | PC.NURSE ---
End of shift: patient alert and oriented, ambulating to [facility]. tolerating a therapeutic diet. Patient's dressing changed x2. Pain rated 8/10 at times, PRN pains med administered see emar.
[2024-10-28 23:34] VITALS: BP 124/81; PULSE 77; RESP 16; TEMP 36.7; O2SAT 100
[2024-10-29] MEDS: SODIUM CHLORIDE 0.9 % (FLUSH) 10 ML SYRINGE 5 ML IVF ×2 (00:11→20:08)
[2024-10-29] MEDS: CEFAZOLIN 2 GM in 0.9 % SODIUM CHLORIDE Mini-bag 100 ML IVPB ×4 (00:11→23:40)
[2024-10-29 01:20] LABS: Albumin* 2.8 g/dL (3.3-5.0)
[2024-10-29 01:23] LABS: Alanine Aminotransferase* 12 U/L (4-50); Alkaline Phosphatase* 120 U/L (40-150); Aspartate Amino Transferase* 15 U/L (12-35); Bilirubin Direct* 0.3 mg/dL (0.0-0.5); Bilirubin Total* 0.3 mg/dL (0.1-1.5); Total Protein* 5.8 g/dL (6.0-8.3)
[2024-10-29 02:23] VITALS: BP 121/76; PULSE 76; RESP 18; TEMP 36.7; O2SAT 97
[2024-10-29] MEDS: KETOROLAC 30 MG/ML inj IVP ×4 (02:27→20:08)
--- NOTE | 2024-10-29 06:14 | PC.NURSE ---
Pt alert and oriented. Pt up independently in room. Pt had complaints of pain ranging from 4-7; scheduled medications given. Pt had complaints of liver pain and iodine taste on tongue; MD called- Lab work done see chart.?VS WNL.
[2024-10-29 06:33] LABS: Basophils Percent Auto 0.2 % (0.0-3.0); Eosinophils Percent Auto 1.2 % (0.0-7.0); Hematocrit 33.2 % (37.0-53.0); Hemoglobin* 11.4 gm/dL (13.5-17.5); Lymphocytes Percent Auto 7.7 % (20-44); Mean Corpuscular HGB Conc 34 gm/dL (32-36); Mean Corpuscular Hemoglobin 29 pg (26-34); Mean Corpuscular Volume 84 fL (80-100); Monocytes Percent Auto 7.6 % (0.0-11.0); Neutrophils Percent Auto 78.3 % (42.0-72.0); Platelet Count* 296 K/uL (140-440); RDW Coefficient of Variation % 12.1 % (11.5-15.5); Red Blood Count 3.96 m/uL (4.30-5.90); White Blood Count* 17.24 K/uL (4.50-11.00)
[2024-10-29 06:34] LABS: Slide Review Reflex No
[2024-10-29 06:40] LABS: Albumin* 2.7 g/dL (3.3-5.0); Chloride* 99 mmol/L (96-114)
[2024-10-29 06:41] LABS: Sodium* 134 mmol/L (135-149)
[2024-10-29 06:43] LABS: Blood Urea Nitrogen* 23 mg/dL (7-30); Creatinine* 0.9 mg/dL (0.5-1.5); Est. Creatinine Clearance* 86.71; Estimated Glomerular Filt Rate 101 ml/min
[2024-10-29 06:44] LABS: Alanine Aminotransferase* 11 U/L (4-50); Alkaline Phosphatase* 124 U/L (40-150); Anion Gap 7 mEq/L (7-15); Aspartate Amino Transferase* 13 U/L (12-35); Bilirubin Direct* 0.3 mg/dL (0.0-0.5); Bilirubin Total* 0.3 mg/dL (0.1-1.5); Calcium* 8.7 mg/dL (8.4-10.6); Carbon Dioxide* 28 mmol/L (20-32); Glucose* 203 mg/dL (60-115); Phosphorus* 3.6 mg/dL (2.5-4.5); Total Protein* 5.7 g/dL (6.0-8.3)
[2024-10-29 07:19] LABS: C Reactive Protein* 13.2 mg/dL (0.5-1.0); Potassium* 2.8 mmol/L (3.6-5.1)
[2024-10-29 07:57] VITALS: BP 133/83; PULSE 79; RESP 22; TEMP 36.7; O2SAT 98
[2024-10-29] MEDS: METFORMIN 500 MG TABLET PO ×2 (08:06→17:53)
[2024-10-29] MEDS: 0.9 % SODIUM CHLORIDE 250 ml IV (08:10)
[2024-10-29] MEDS: INSULIN ASPART 100 UNIT/ML SUBCUT ×6 (08:16→20:52)
[2024-10-29] MEDS: FLUCONAZOLE 100 MG TABLET 250 MG PO (08:25)
[2024-10-29] MEDS: POTASSIUM CHLORIDE 10 MEQ CAPSULE ER 40 MEQ PO ×2 (08:25→12:35)
[2024-10-29] MEDS: lamoTRIgine 100 MG TABLET PO ×2 (08:27→20:54)
[2024-10-29] MEDS: INSULIN GLARGINE,HUM.REC.ANLOG 100 UNIT/ML INSULN.PEN 20 UNIT SUBCUT (08:28)
--- NOTE | 2024-10-29 09:38 | PM.GSPN ---
Subjective Subjective Date Seen: 10/29/24 Interval history: Alban is stable. Still has some burning discomfort on his scalp after draining the area. Nursing staff did scrub the scalp wound yesterday afternoon. Exam Narrative: Exam Narrative: General: No acute distress HEENT: Erythema of posterior scalp is slightly improved today however still quite remarkable. Wound with purulent drainage. The purulence is coming from pinpoint areas in multiple aspects of the base of the wound. One of the tracts was probed with a forceps however did not probe into a deeper cavity. Const: Vital Signs, click to edit/add: Vital Signs - 24 hr 10/28/24 11:00 10/28/24 15:00 10/28/24 15:00 Temperature 97.6 F 98.0 F Pulse Rate [Pulse Oximeter] 85 86 86 Respiratory Rate 16 16 16 Blood Pressure [Ri ght Arm] 135/79 128/84 Pulse Oximetry 99 99 Oxygen Delivery Me thod Room Air Room Air 10/28/24 23:34 10/29/24 02:23 10/29/24 07:57 Temperature 98.0 F 98.1 F 98.1 F Pulse Rate [Pulse Oximeter] 77 76 79 Respiratory Rate 16 18 22 Blood Pressure [Ri ght Arm] 124/81 121/76 133/83 Pulse Oximetry 100 97 98 Oxygen Delivery Me thod Room Air Room Air Labs/Imaging Labs Labs: White blood cell count down to 17 from 20 CRP is down to 13. Imaging Imaging: CT scan of the neck done yesterday radiology report: IMPRESSION: 1. Diffuse subcutaneous cellulitis along the left posterior suboccipital and left upper neck soft tissues and open wound. Several small rim enhancing and partially rim enhancing structures in the deep subcutaneous fat concerning for phlegmon and small abscesses. 2. Few prominent bilateral level 5 lymph nodes likely reactive in etiology. Otherwise unremarkable CT of the neck. Please note that all CT scans at this facility use dose modulation, iterative reconstruction, and/or weight-based dosing when appropriate to reduce radiation dose to as low as reasonably achievable. Dictated by Jareth Araiza MD @ 10/29/2024 9:51:06 AM Progress Note:A&P Assessment and plan (1) Staphylococcus aureus bacteremia: Status: Acute (2) Cellulitis of neck: Status: Acute (3) DM (diabetes mellitus), type 2: Status: Acute (4) Leukocytosis: Status: Acute Plan The patient is a 53-year-old male with neck cellulitis and MSSA bacteremia with what appears to be a phlegmon without discrete drainable abscess. -the patient is slightly improved today overall. The CT scan as mentioned yesterday was reviewed with Radiology. It appears more consistent with phlegmon then obvious discrete abscess. Prior to drainage on Monday there was purulence coming from multiple areas on the skin and currently purulence is coming from multiple pinpoint areas in the subcu. None of these seem to track to discrete fluid collection when probed. CT scan shows possibly a 1 or 2 cm fluid collection opposite sides of the neck. This raises suspicion for phlegmon versus abscess - which is very unusual in this location. I discussed this with the patient. If he seems to continue to improve as he has over the last 2 days, then we will continue with b.i.d. scrubs and dressing changes with Vashe. It is possible that collections will coalesce in to a drainable abscess. If this is the case, then we would plan for surgical debridement in the OR. -discussed with the hospitalist. -orders in place for nursing to perform b.i.d. scrubs with chlorhexidine and dressing changes with VASHE
--- NOTE | 2024-10-29 10:22 | NUTR.NU ---
RDN with verbal MD consult for diet education related to type 2 diabetes. Patient admitted for cellulitis of neck, positive for staphylococcus aureus bacteremia. Medical history significant for Seizure disorder and type 2 DM (diabetes mellitus). Per patient, he does not take his medications for diabetes when he is at home. Current weight is 160lb 7oz; height 5ft 7in; BMI 25.1 kg/m2. Weight has been stable recently per patient. RDN visited with patient whom reports monitoring his intake at home. He tries to avoid high sugar foods. He practices intermittent fasting and typically only eats one meal daily. He has not received diet education related to diabetes in the clinic in the past. He did agree to receive diet education materials. We reviewed diabetic diet. Discussed basics of carbohydrate counting including sources of carbohydrates, serving sizes, and label reading. Handouts provided to support discussion. RDN contact information provided and encouraged patient to call with questions. RDN to follow up as needed.
[2024-10-29 10:50] VITALS: BP 122/76; PULSE 88; RESP 18; TEMP 36.7; O2SAT 99
--- NOTE | 2024-10-29 14:56 | PM.IMPN1 ---
Progress Note: A&P Assessment and plan (1) Staphylococcus aureus bacteremia: Problem details: -daily blood cultures to assure clearance, only positive blood culture was from 10/26/24 with others negative to date -echo today was reassuring for any obvious valve vegetations -MSSA presumed based on -mrsa nasal swab and wound culture, with blood culture result on 10/29/24 demonstrating linton-sensitive MSSA. -changed iv vanc to iv ancef 2 q 8 on 10/28. first dose of vanc was evening of 10/26. -no obvious sepsis associated with this bacteremia -discussed with ID, Dr. Melina Soler, on 10/29/24, who recommended 2 weeks of IV antibiotics from time of I&D (10/27/24) or from time of first negative BC (10/27/24 so far) -will need Midline or PICC IV placement as early as tomorrow, awaiting more time to confirm neg blood culture -considering with hospital pharmacy to decide on homegoing IV antibiotic Status: Acute (2) Cellulitis of neck: Problem details: -surgical consult bedside 10/27 (Dr. Kearns). I and D bedside. I spoke with surgeon today, 10/29/2024 -s/p Vanc, as of 10/28 on IV Ancef -6 mg/kg/day of oral fluconazole divided b.i.d.to cover fungal element of the acute kerion infection. I discussed with Dr. Soler, ID, 10/29/24, who indicated the maximum dose of fluconazole is 200 mg daily. Thus on 10/29/24 I changed the dose of fluconazole from 250 mg po BID to 200 mg po once daily. -if not improving consider repeat soft tissue neck CT with contrast as soon as 10/31/2024 Status: Acute (3) DM (diabetes mellitus), type 2: Problem details: -non compliant. Working on education with patient who is reluctant to treat his elevated blood glucose levels -A1c 13.0 on 10/26/24 -initiated metformin therapy 500 mg p.o. b.i.d. with food on 10/26/24. Metabolic acidosis has resolved. Increase dose to 500 mg po TID starting 10/30/24 -Lantus, insulin glargine, increasing dose as waranted - started at 10 units daily, then yesterday increased to 20 units daily, and starting tomorrow morning increase to 30 units daily -mealtime insulin, 4 units t.i.d. with food -sliding scale for additional coverage, increased on 10/29/24 to medium-high dose -spoke with him and his ex- who is present with him in the room and recommended that he ambulate a minimum of 6 times daily in the hallway, twice in the morning, twice in the afternoon, twice in the evening -nutrition consult placed 10/29/2024 Status: Acute (4) Leukocytosis: Problem details: Likely due to acute infection. Monitor and trend Status: Acute (5) Kerion: Problem details: -high dose PO fluconazole 250mg BID x 2 weeks. -I discussed with Dr. Daniels on 10/29/24 who recommended max dose of 200 mg po daily for 3-6 weeks. In his case she recommended dose of 200 mg po daily for 4 weeks and then follow-up with primary care physician or a code number stamper who deals with treating karions to consider stopping medicine at that time or continue for additional treatment. -Additionally, patient needs optimization of blood glucose management. In hospital thus far his BG levels have not been optimally controlled in great measure because of his reluctance to allow us to intensify his treatment. Will continue to work with him to try to optimize treatment of BG levels. Status: Suspected (6) Seizure disorder: Problem details: Currently on lamotrigine 100 mg the morning and 200 mg in the evening (although it doesn't appear he has been taking this). No seizures since December of 2022 -will reduce Lamictal dosing to 100 mg b.i.d. given high-dose fluconazole therapy Status: Acute Time Spent With Patient Total time spent: 50 minutes Subjective Date Seen: 10/29/24 Interval history: Hospital day 4. Generally improved. Pain is adequately managed, albeit worse with dressing changes. Tolerating increased activity. Denies fevers, rigors, diaphoresis. Exam Narrative: Exam Narrative: Examine him in his hospital room. Appears comfortable in no acute distress. Dressing in place. Surgeon already evaluated his wound today and I did not open the packing at this time. Lungs are clear to auscultation. Heart tones with regular rhythm without murmur, gallop, rub. Abdomen with active bowel sounds, soft, nontender. No focal motor neurologic deficits. Const: Vital Signs, click to edit/add: Vital Signs - 24 hr 10/28/24 15:00 10/28/24 15:00 10/28/24 23:34 Temperature 98.0 F 98.0 F Pulse Rate [Pulse Oximeter] 86 86 77 Respiratory Rate 16 16 16 Blood Pressure [Ri ght Arm] 128/84 124/81 Pulse Oximetry 99 100 Oxygen Delivery Me thod Room Air Room Air 10/29/24 02:23 10/29/24 07:57 10/29/24 07:57 Temperature 98.1 F 98.1 F Pulse Rate [Pulse Oximeter] 76 79 79 Respiratory Rate 18 22 22 Blood Pressure [Ri ght Arm] 121/76 133/83 Pulse Oximetry 97 98 Oxygen Delivery Me thod Room Air 10/29/24 10:50 Temperature 98.1 F Pulse Rate [Pulse Oximeter] 88 Respiratory Rate 18 Blood Pressure [Ri ght Arm] 122/76 Pulse Oximetry 99 Oxygen Delivery Me thod Room Air Labs Labs: Laboratory Results - last 24 hr 10/29/24 10/29/24 00:55 06:06 WBC 17.24 H RBC 3.96 L Hgb 11.4 L Hct 33.2 L MCV 84 MCH 29 MCHC 34 RDW Coeff of Michelle 12.1 Plt Count 296 Neut % (Auto) 78.3 H Lymph % (Auto) 7.7 L [place] % (Auto) 7.6 Eos % (Auto) 1.2 Baso % (Auto) 0.2 Neut # (Auto) 13.50 H Lymph # (Auto) 1.30 [place] # (Auto) 1.30 H Eos # (Auto) 0.20 Baso # (Auto) 0.00 Abs Immat Gran (auto) 0.90 H Imm/Tot Granulo (auto) 5.0 Sodium 134 L Potassium 2.8 L* Chloride 99 Carbon Dioxide 28 Anion Gap 7 BUN 23 Creatinine 0.9 Estimated Creat Clear 86.71 Estimated GFR 101 Glucose 203 H Calcium 8.7 Phosphorus 3.6 Total Bilirubin 0.3 0.3 Direct Bilirubin 0.3 0.3 AST 15 13 ALT 12 11 Alkaline Phosphatase 120 124 C-Reactive Protein 13.2 H Total Protein 5.8 L 5.7 L Albumin 2.8 L 2.7 L
[2024-10-29 15:07] VITALS: BP 125/72; PULSE 90; RESP 14; TEMP 36.3; O2SAT 98
--- NOTE | 2024-10-29 17:38 | PC.NURSE ---
End of Shift: Patient pleasant and cooperative. Patient vitally stable, lungs clear, BS WNL, IV SL and intact. Patient head pain is rated at most 7/10, scheduled pain meds given. Patient independent in room. Patient tolerating regular diet, urinating well, No BM. Blood sugars 222, 214, 261. Head wound care perfomed.
[2024-10-29 20:06] VITALS: BP 128/82; PULSE 80; RESP 16; TEMP 36.8; O2SAT 99
[2024-10-29 23:44] VITALS: BP 122/77; PULSE 75; RESP 16; TEMP 36.9; O2SAT 98
[2024-10-30] MEDS: KETOROLAC 30 MG/ML inj IVP ×4 (01:30→20:47)
[2024-10-30 05:33] VITALS: BP 127/80; PULSE 76; RESP 16; TEMP 36.6; O2SAT 98
--- NOTE | 2024-10-30 06:08 | PC.NURSE ---
Pt alert and oriented. Pt had complaints of pain ranging 6-9; scheduled medications given. Pt's dressing changed.Pt up independent in room.
[2024-10-30 06:31] LABS: Basophils Percent Auto 0.2 % (0.0-3.0); Eosinophils Percent Auto 1.8 % (0.0-7.0); Hematocrit 32.5 % (37.0-53.0); Hemoglobin* 11.1 gm/dL (13.5-17.5); Immature Granulocytes Pct Auto 5.8 %; Lymphocytes Percent Auto 12.3 % (20-44); Mean Corpuscular HGB Conc 34 gm/dL (32-36); Mean Corpuscular Hemoglobin 29 pg (26-34); Mean Corpuscular Volume 85 fL (80-100); Monocytes Percent Auto 9.6 % (0.0-11.0); Neutrophils Percent Auto 70.3 % (42.0-72.0); Platelet Count* 306 K/uL (140-440); RDW Coefficient of Variation % 12.4 % (11.5-15.5); Red Blood Count 3.83 m/uL (4.30-5.90); White Blood Count* 13.69 K/uL (4.50-11.00)
[2024-10-30 06:35] LABS: Chloride* 99 mmol/L (96-114); Potassium* 3.2 mmol/L (3.6-5.1); Sodium* 135 mmol/L (135-149)
[2024-10-30 06:37] LABS: Blood Urea Nitrogen* 21 mg/dL (7-30); Est. Creatinine Clearance* 78.03; Estimated Glomerular Filt Rate 89 ml/min
[2024-10-30 06:38] LABS: Anion Gap 7 mEq/L (7-15); Carbon Dioxide* 29 mmol/L (20-32); Glucose* 148 mg/dL (60-115)
[2024-10-30 06:39] LABS: Slide Review Reflex Yes
[2024-10-30 06:41] LABS: C Reactive Protein* 6.8 mg/dL (0.5-1.0)
[2024-10-30 07:40] LABS: Slide Review Acceptable Review (Acceptable)
[2024-10-30] MEDS: CEFAZOLIN 2 GM in 0.9 % SODIUM CHLORIDE Mini-bag 100 ML IVPB ×3 (07:45→23:32)
[2024-10-30 07:49] VITALS: BP 138/87; PULSE 71; RESP 20; TEMP 36.8; O2SAT 94
[2024-10-30] MEDS: INSULIN ASPART 100 UNIT/ML SUBCUT ×5 (08:00→20:48)
[2024-10-30] MEDS: METFORMIN 500 MG TABLET PO ×3 (08:04→17:10)
[2024-10-30] MEDS: INSULIN GLARGINE,HUM.REC.ANLOG 100 UNIT/ML INSULN.PEN 30 UNIT SUBCUT (08:44)
[2024-10-30] MEDS: lamoTRIgine 100 MG TABLET PO ×2 (08:44→21:55)
[2024-10-30] MEDS: FLUCONAZOLE 100 MG TABLET 200 MG PO (08:44)
[2024-10-30] MEDS: SODIUM CHLORIDE 0.9 % (FLUSH) 10 ML SYRINGE 5 ML IVF ×2 (08:45→23:32)
[2024-10-30 10:37] VITALS: BP 134/87; PULSE 73; RESP 20; TEMP 36.6; O2SAT 97
--- NOTE | 2024-10-30 12:12 | PM.GSPN ---
Subjective Subjective Date Seen: 10/30/24 Interval history: Johny is stable today. White blood cell count and CRP are improved. Fever curve is improved. Patient has discomfort that is burning in his skin on the back of his neck but this is not severe. Has no discomfort when the wound is touched. Exam Narrative: Exam Narrative: General: No acute distress HEENT: Cellulitis appears to be receding overall. No further oozing noted from the skin today, however there continues to be diffuse pinpoint oozing from various locations within the wound. Again I attempted to probe these to see if they lead to a deeper cavity, however no further purulence is able to be expressed nor does it seem to lead to a discrete cavity. Const: Vital Signs, click to edit/add: Vital Signs - 24 hr 10/29/24 15:07 10/29/24 15:07 10/29/24 20:06 Temperature 97.4 F L 98.2 F Pulse Rate [Pulse Oximeter] 90 90 80 Respiratory Rate 14 14 16 Blood Pressure [Le ft] 125/72 128/82 Blood Pressure [Ri ght Arm] Pulse Oximetry 98 99 Oxygen Delivery Me thod Room Air Room Air 10/29/24 23:44 10/30/24 05:33 10/30/24 07:49 Temperature 98.5 F 97.9 F 98.2 F Pulse Rate [Pulse Oximeter] 75 76 71 Respiratory Rate 16 16 20 Blood Pressure [Le ft] Blood Pressure [Ri ght Arm] 122/77 127/80 138/87 Pulse Oximetry 98 98 94 Oxygen Delivery Me thod Room Air Room Air Room Air 10/30/24 07:49 10/30/24 10:37 Temperature 97.9 F Pulse Rate [Pulse Oximeter] 71 73 Respiratory Rate 20 20 Blood Pressure [Le ft] Blood Pressure [Ri ght Arm] 134/87 Pulse Oximetry 97 Oxygen Delivery Me thod Room Air Labs/Imaging Labs Labs: CRP is down to 6.8 from 13 White blood cell count 13 from 17 Progress Note:A&P Assessment and plan (1) Staphylococcus aureus bacteremia: Status: Acute (2) Kerion: Status: Suspected (3) Cellulitis of neck: Status: Acute Plan The patient is a 53-year-old male with cellulitis of his posterior head/neck with bacteremia. So far, no discrete drainable collection is seen but patient has diffuse ooze of purulence from the skin and subcut which appears more consistent with phlegmon - this is unusual. There does not appear to be any necrosis that needs to be debrided as the tissue in the base of the wound other than the Surgicel appears to be viable with excellent blood flow. Fortunately he is improving clinically, however I am not sure that he has source control. I discussed the case with Dr. Foley as well as radiology to determine the next best step. Will plan on MRI to further evaluate the muscle and deeper structures, also to look for clear fluid collections that could be drained. Depending on this finding we will consider drainage in the OR. The patient is agreeable to this plan. MRI is ordered for later that today and patient should be NPO at midnight for possible addition to the OR schedule tomorrow.
[2024-10-30] MEDS: 0.9 % SODIUM CHLORIDE 250 ml IV (15:39)
[2024-10-30 15:43] VITALS: BP 131/81; PULSE 79; RESP 18; TEMP 36.6; O2SAT 98
--- NOTE | 2024-10-30 15:55 | PM.IMPN1 ---
Progress Note: A&P Assessment and plan (1) Staphylococcus aureus bacteremia: Problem details: -daily blood cultures to assure clearance, only positive blood culture was from 10/26/24 with others negative to date -echo today was reassuring for any obvious valve vegetations -MSSA presumed based on -mrsa nasal swab and wound culture, with blood culture result on 10/29/24 demonstrating linton-sensitive MSSA. -changed iv vanc to iv ancef 2 q 8 on 10/28. first dose of vanc was evening of 10/26. -no obvious sepsis associated with this bacteremia -discussed with ID, Dr. Melina Soler, on 10/29/24, who recommended 2 weeks of IV antibiotics from time of I&D (10/27/24) or from time of first negative BC (10/27/24 so far) -will need Midline or PICC IV placement before discharge. Await decision about possible additional surgical intervention for debridement of kerion. -considering with hospital pharmacy to decide on homegoing IV antibiotic Status: Acute (2) Cellulitis of neck: Problem details: -surgical consult bedside 10/27 (Dr. Kearns). I and D bedside. I spoke with surgeon today, 10/29/2024 -s/p Vanc, as of 10/28 on IV Ancef -6 mg/kg/day of oral fluconazole divided b.i.d.to cover fungal element of the acute kerion infection. I discussed with Dr. Soler, ID, 10/29/24, who indicated the maximum dose of fluconazole is 200 mg daily. Thus on 10/29/24 I changed the dose of fluconazole from 250 mg po BID to 200 mg po once daily. -ordered MR scan of soft tissue of neck for later today to help guide decision about possible additional surgical debridement as early as tomorrow -NPO after midnight Status: Acute (3) Kerion: Problem details: -high dose PO fluconazole 250mg BID x 2 weeks. -I discussed with Dr. Daniels on 10/29/24 who recommended max dose of 200 mg po daily for 3-6 weeks. In his case she recommended dose of 200 mg po daily for 4 weeks and then follow-up with primary care physician or a roaster helper who deals with treating karions to consider stopping medicine at that time or continue for additional treatment. -Additionally, patient needs optimization of blood glucose management. In hospital thus far his BG levels have not been optimally controlled in great measure because of his reluctance to allow us to intensify his treatment. Will continue to work with him to try to optimize treatment of BG levels. Status: Suspected (4) Seizure disorder: Problem details: Currently on lamotrigine 100 mg the morning and 200 mg in the evening (although it doesn't appear he has been taking this). No seizures since December of 2022 -will reduce Lamictal dosing to 100 mg b.i.d. given high-dose fluconazole therapy Status: Acute (5) DM (diabetes mellitus), type 2: Problem details: -non compliant. Working on education with patient who is reluctant to treat his elevated blood glucose levels -A1c 13.0 on 10/26/24 -initiated metformin therapy 500 mg p.o. b.i.d. with food on 10/26/24. Metabolic acidosis has resolved. Increase dose to 500 mg po TID starting 10/30/24 -Lantus, insulin glargine, increasing dose as waranted - started at 10 units daily, then yesterday increased to 20 units daily, and starting tomorrow morning increase to 30 units daily -mealtime insulin, 4 units t.i.d. with food -sliding scale for additional coverage, increased on 10/29/24 to medium-high dose -spoke with him and his ex- who is present with him in the room and recommended that he ambulate a minimum of 6 times daily in the hallway, twice in the morning, twice in the afternoon, twice in the evening -nutrition consult placed 10/29/2024 -ongoing adjustment in insulin as warranted, particularly with blood sugars suddenly 108 this afternoon on 10/30/2024 and NPO status at midnight Status: Acute Plan 1. Reviewed my impression and recommendations with patient, his father, and his 2. Reviewed with his general surgeon and coordinated care 3. Answered their questions to their satisfaction 4. They are agreeable with above stated plans and recommendations Time Spent With Patient Total time spent: 50 minutes Subjective Date Seen: 10/30/24 Interval history: 10/30/2024: Hospital day 6. Believes overall he is improved. Has a burning sensation in the posterior aspect of his neck that does not worsen with touch or movement. Continues to tolerate dressing changes. Accepting adjustments in medications for better glucose management. Originally was reluctant to allow is to help him achieve optimal glucose management. Exam Narrative: Exam Narrative: Examined in his hospital room. Friendly, articulate, cooperative. Alert and oriented x4. Wound and posterior neck is coalescing. Surgical incision appears clean. As I press on the skin surrounding the surgical wound, the surgical wound feels with pus from surrounding tissue plus some pus is expressed from pores in the skin. Lungs clear to auscultation. Heart tones with regular rhythm. Abdomen benign. Independent transfer, station, gait. No focal motor neurologic deficits. Const: Vital Signs, click to edit/add: Vital Signs - 24 hr 10/29/24 20:06 10/29/24 23:44 10/30/24 05:33 Temperature 98.2 F 98.5 F 97.9 F Pulse Rate [Pulse Oximeter] 80 75 76 Respiratory Rate 16 16 16 Blood Pressure [Le ft] 128/82 Blood Pressure [Ri ght Arm] 122/77 127/80 Pulse Oximetry 99 98 98 Oxygen Delivery Me thod Room Air Room Air Room Air 10/30/24 07:49 10/30/24 07:49 10/30/24 10:37 Temperature 98.2 F 97.9 F Pulse Rate [Pulse Oximeter] 71 71 73 Respiratory Rate 20 20 20 Blood Pressure [Le ft] Blood Pressure [Ri ght Arm] 138/87 134/87 Pulse Oximetry 94 97 Oxygen Delivery Me thod Room Air Room Air 10/30/24 15:43 Temperature 98 F Pulse Rate [Pulse Oximeter] 79 Respiratory Rate 18 Blood Pressure [Le ft] Blood Pressure [Ri ght Arm] 131/81 Pulse Oximetry 98 Oxygen Delivery Me thod Room Air Labs Labs: Laboratory Results - last 24 hr 10/30/24 06:01 WBC 13.69 H RBC 3.83 L Hgb 11.1 L Hct 32.5 L MCV 85 MCH 29 MCHC 34 RDW Coeff of Michelle 12.4 Plt Count 306 Neut % (Auto) 70.3 Lymph % (Auto) 12.3 L [place] % (Auto) 9.6 Eos % (Auto) 1.8 Baso % (Auto) 0.2 Neut # (Auto) 9.60 H Lymph # (Auto) 1.70 [place] # (Auto) 1.30 H Eos # (Auto) 0.20 Baso # (Auto) 0.00 Abs Immat Gran (auto) 0.80 H Imm/Tot Granulo (auto) 5.8 Diff Slide Review Acceptable Review Sodium 135 Potassium 3.2 L Chloride 99 Carbon Dioxide 29 Anion Gap 7 BUN 21 Creatinine 1.0 Estimated Creat Clear 78.03 Estimated GFR 89 Glucose 148 H Calcium 9.0 C-Reactive Protein 6.8 H
--- NOTE | 2024-10-30 17:36 | PC.NURSE ---
End of Shift: Patient pleasant and cooperative. Patient vitally stable, lungs clear, BS WNL, IV SL and intact. Patient always rates head pain 8/10, schedule pain med given otherwise patient declines other pain meds. Patient independent in room. Patient tolerating regular diet, urinating, and had 2 BMs. Patient wound care performed, pus continues to drain. Blood sugars 168, 108, 113.
[2024-10-30 19:00] VITALS: BP 145/86; PULSE 84; RESP 18; TEMP 36.7; O2SAT 98
[2024-10-30] MEDS: TRAMADOL HCL 50 MG TABLET PO (21:57)
[2024-10-30 23:14] VITALS: BP 145/85; PULSE 88; RESP 18; TEMP 36.9; O2SAT 95
--- NOTE | 2024-10-30 23:33 | PC.NURSE ---
Nursing Care Hours: [id number] Pt this shift calm and cooperative, alert and oriented. Pain rated 8/10 to posterior neck, described as burning. IV toradol given and heating pad to back of neck upper shoulders started. Pt reports improvement in shoulder pain stiffness as well as decreased burning sensation. Wound dressing removed. yellow cream color discharge to dressing. Surrounding skin red and warm and neck swollen. wound irrigated, allowed to drain for 60min. Light compression to surrounding tissue expelled filling the wound bed x3. Wound irrigated again, surrounding tissue cleaned with chlorhexidine swab, vaush dampened gauze cut in half and fitted to wound bed. Covered with abdominal pad.
[2024-10-31] MEDS: MELATONIN 3 MG TABLET PO ×2 (00:10→23:50)
[2024-10-31] MEDS: KETOROLAC 30 MG/ML inj IVP ×4 (02:02→20:46)
[2024-10-31 02:44] VITALS: BP 135/82; PULSE 73; RESP 16; TEMP 36.8; O2SAT 95
--- NOTE | 2024-10-31 06:31 | PC.NURSE ---
end of shift [id number]: At shift change dressing change done with previous shift RN. Wound draining yellow pus. Wound packed and redressed. VSS. Afebrile. Rating pain 8/10. Intermittently sleeping overnight. NPO since 0000. Up at oh in room. Using call light appropriately. ? ?
[2024-10-31 06:41] LABS: Basophils Percent Auto 0.2 % (0.0-3.0); Eosinophils Percent Auto 1.6 % (0.0-7.0); Hematocrit 30.3 % (37.0-53.0); Hemoglobin* 10.1 gm/dL (13.5-17.5); Immature Granulocytes Pct Auto 5.5 %; Lymphocytes Percent Auto 14.9 % (20-44); Mean Corpuscular HGB Conc 33 gm/dL (32-36); Mean Corpuscular Hemoglobin 29 pg (26-34); Mean Corpuscular Volume 87 fL (80-100); Monocytes Percent Auto 10.4 % (0.0-11.0); Neutrophils Percent Auto 67.4 % (42.0-72.0); Platelet Count* 256 K/uL (140-440); RDW Coefficient of Variation % 12.5 % (11.5-15.5); Red Blood Count 3.48 m/uL (4.30-5.90); White Blood Count* 13.53 K/uL (4.50-11.00)
[2024-10-31 06:50] LABS: Slide Review Reflex No
[2024-10-31 07:00] VITALS: BP 134/85; PULSE 68; PULSE 73; RESP 16; RESP 18; TEMP 36.5; O2SAT 99
[2024-10-31 07:19] LABS: Chloride* 99 mmol/L (96-114); Potassium* 3.9 mmol/L (3.6-5.1); Sodium* 134 mmol/L (135-149)
[2024-10-31 07:22] LABS: Blood Urea Nitrogen* 23 mg/dL (7-30); Creatinine* 1.1 mg/dL (0.5-1.5); Est. Creatinine Clearance* 70.94; Estimated Glomerular Filt Rate 79 ml/min
[2024-10-31 07:23] LABS: Anion Gap 6 mEq/L (7-15); Calcium* 9.2 mg/dL (8.4-10.6); Carbon Dioxide* 29 mmol/L (20-32); Glucose* 157 mg/dL (60-115)
[2024-10-31 07:26] LABS: C Reactive Protein* 5.9 mg/dL (0.5-1.0)
[2024-10-31] MEDS: CEFAZOLIN 2 GM in 0.9 % SODIUM CHLORIDE Mini-bag 100 ML IVPB ×3 (08:42→23:50)
[2024-10-31] MEDS: METFORMIN 500 MG TABLET PO ×3 (08:44→17:56)
[2024-10-31] MEDS: INSULIN GLARGINE,HUM.REC.ANLOG 100 UNIT/ML INSULN.PEN 25 UNIT SUBCUT ×2 (08:45→08:49)
[2024-10-31] MEDS: lamoTRIgine 100 MG TABLET PO ×2 (08:45→20:47)
[2024-10-31] MEDS: FLUCONAZOLE 100 MG TABLET 200 MG PO (08:45)
[2024-10-31] MEDS: SODIUM CHLORIDE 0.9 % (FLUSH) 10 ML SYRINGE 5 ML IVF ×2 (08:46→20:46)
[2024-10-31 11:00] VITALS: BP 114/78; PULSE 69; RESP 18; TEMP 36.6; O2SAT 96
[2024-10-31] MEDS: INSULIN ASPART 100 UNIT/ML SUBCUT ×2 (13:02→17:55)
--- NOTE | 2024-10-31 13:07 | PM.GSPN ---
Subjective Subjective Date Seen: 10/31/24 Interval history: Johny states that he feels better. He has had a lot more drainage in the last 24 hours. He has been using a heating pad which seems to have helped. Exam Narrative: Exam Narrative: General: No acute distress HEENT: Area continues to be more coalesced and is softer. Still able to express purulent material again from various pinpoint areas throughout the wound bed. These do not tract significantly into larger cavities. Const: Vital Signs, click to edit/add: Vital Signs - 24 hr 10/30/24 15:43 10/30/24 15:43 10/30/24 19:00 Temperature 98 F 98.1 F Pulse Rate [Pulse Oximeter] 79 79 84 Respiratory Rate 18 18 18 Blood Pressure [Ri ght Arm] 131/81 145/86 H Pulse Oximetry 98 98 Oxygen Delivery Me thod Room Air Room Air 10/30/24 23:14 10/31/24 02:44 10/31/24 07:00 Temperature 98.4 F 98.2 F Pulse Rate [Pulse Oximeter] 88 73 73 Respiratory Rate 18 16 16 Blood Pressure [Ri ght Arm] 145/85 H 135/82 Pulse Oximetry 95 95 Oxygen Delivery Me thod Room Air Room Air 10/31/24 07:00 10/31/24 11:00 Temperature 97.7 F 97.9 F Pulse Rate [Pulse Oximeter] 68 69 Respiratory Rate 18 18 Blood Pressure [Ri ght Arm] 134/85 114/78 Pulse Oximetry 99 96 Oxygen Delivery Me thod Room Air Room Air Labs/Imaging Imaging Imaging: MRI of the head and neck yesterday shows: Impression: 1. Diffuse cellulitis surrounding the left posterior neck open wound/ulceration, extending to the superficial posterior neck musculature with corresponding myositis. 2. No discrete/drainable abscess identified. 3. Reactive level 5 lymph nodes. Dictated by Italo Garza MD @ 10/30/2024 5:19:11 PM Progress Note:A&P Assessment and plan (1) Staphylococcus aureus bacteremia: Status: Acute (2) Cellulitis of neck: Status: Acute (3) DM (diabetes mellitus), type 2: Status: Acute (4) Leukocytosis: Status: Acute Plan The patient is a 53-year-old male with subcutaneous staph infection and staph bacteremia. -he is slowly improving, however continues to have a fair amount of purulent drainage diffusely from his subcutaneous tissue. MRI yesterday did not show a discrete fluid collection. There is involvement of the superficial neck musculature. However there is no abscess noted. The patient overall feels improved. -recommend continued b.i.d. dressing changes with Kerlix soaked in vashe as well as scrubs and soaks -I think it is reasonable to continue the heating pad to attempt to express purulence from the tissue as able. -recommend continued IV antibiotics. Once patient is deemed safe for discharge home on IV antibiotics, should continue with at least daily dressing changes with fast soaked gauze. Patient can follow-up in surgery Clinic for wound check next week. -discussed the case with ID today as well as the patient and his . I think again since there was no devitalized tissue and no discrete fluid collection to drain, we will hold off of any additional surgical intervention. Certainly this could change and if the patient's symptoms worsen then we will consider reimaging or re-evaluation.
[2024-10-31 15:00] VITALS: BP 129/79; PULSE 69; RESP 18; O2SAT 96
--- NOTE | 2024-10-31 15:58 | PM.IMPN1 ---
Progress Note: A&P Assessment and plan (1) Cellulitis of neck: Problem details: -surgical consult bedside 10/27 (Dr. Kearns). I and D bedside. I spoke with surgeon today, 10/29/2024 -s/p Vanc, as of 10/28 on IV Ancef -6 mg/kg/day of oral fluconazole divided b.i.d.to cover fungal element of the acute kerion infection. I discussed with Dr. Soler, ID, 10/29/24, who indicated the maximum dose of fluconazole is 200 mg daily. Thus on 10/29/24 I changed the dose of fluconazole from 250 mg po BID to 200 mg po once daily. -MRI from 10/30/2024 demonstrates no drainable wound. Appears to have a myositis in addition to the cellulitis. -discussion undertaken with surgeon and infectious disease specialists on 10/31/2024. Outcome of discussion is that there is nothing to surgically drain at this time. Continue with IV antibiotic therapy and oral fluconazole therapy. With the MRI findings suggesting myositis in addition to the cellulitis, infectious disease specialists suggested that we may need to extend the antibiotic treatment, either intravenous or switching to oral for a longer period of time subsequent to completion of a 2 week course of IV antibiotics. -continue with wound cares to the posterior neck as presently instituted Status: Acute (2) Staphylococcus aureus bacteremia: Problem details: -daily blood cultures to assure clearance, only positive blood culture was from 10/26/24 with others negative to date -echo today was reassuring for any obvious valve vegetations -MSSA presumed based on -mrsa nasal swab and wound culture, with blood culture result on 10/29/24 demonstrating linton-sensitive MSSA. -changed iv vanc to iv ancef 2 q 8 on 10/28. first dose of vanc was evening of 10/26. -no obvious sepsis associated with this bacteremia -discussed with ID, Dr. Melina Soler, on 10/29/24, who recommended 2 weeks of IV antibiotics from time of I&D (10/27/24) or from time of first negative BC (10/27/24 so far) -will need Midline or PICC IV placement before discharge. Await decision about possible additional surgical intervention for debridement of kerion. -considering with hospital pharmacy to decide on homegoing IV antibiotic: Optimal treatment will be 3 times daily cefazolin, with backup plan for daptomycin if needed Status: Acute (3) Keryashira: Problem details: -high dose PO fluconazole 250mg BID x 2 weeks. -I discussed with Dr. Daniels on 10/29/24 who recommended max dose of 200 mg po daily for 3-6 weeks. In his case she recommended dose of 200 mg po daily for 4 weeks and then follow-up with primary care physician or a prefitter doors who deals with treating gera to consider stopping medicine at that time or continue for additional treatment. -Additionally, patient needs optimization of blood glucose management. In hospital thus far his BG levels have not been optimally controlled in great measure because of his reluctance to allow us to intensify his treatment. Will continue to work with him to try to optimize treatment of BG levels. Status: Suspected (4) Seizure disorder: Problem details: Currently on lamotrigine 100 mg the morning and 200 mg in the evening (although it doesn't appear he has been taking this). No seizures since December of 2022 -will reduce Lamictal dosing to 100 mg b.i.d. given high-dose fluconazole therapy Status: Acute (5) DM (diabetes mellitus), type 2: Problem details: -non compliant. Working on education with patient who is reluctant to treat his elevated blood glucose levels -A1c 13.0 on 10/26/24 -initiated metformin therapy 500 mg p.o. b.i.d. with food on 10/26/24. Metabolic acidosis has resolved. Increase dose to 500 mg po TID starting 10/30/24 -Lantus, insulin glargine, increasing dose as waranted - started at 10 units daily, then yesterday increased to 20 units daily, and starting tomorrow morning increase to 30 units daily -mealtime insulin, 4 units t.i.d. with food -sliding scale for additional coverage, increased on 10/29/24 to medium-high dose -spoke with him and his ex- who is present with him in the room and recommended that he ambulate a minimum of 6 times daily in the hallway, twice in the morning, twice in the afternoon, twice in the evening -nutrition consult placed 10/29/2024 -ongoing adjustment in insulin as warranted Status: Acute (6) Leukocytosis: Problem details: Likely due to acute infection. Monitor and trend Status: Acute Plan 1. Discuss with general surgeon and infectious disease specialist 2. Discussed with patient and 3. Continue with blood sugar management efforts 4. Continue with IV antibiotics for 2 full week course with possible extension of IV treatment verses switching to oral antibiotics after 2 full weeks of IV antibiotics, and continue with high-dose fluconazole for a minimum of 4 weeks. 5. Midline cath placement either this evening or tomorrow morning 6. Answered patient's and 's questions to their satisfaction 7. They are agreeable with above stated plans and recommendations Time Spent With Patient Total time spent: 50 minutes Subjective Date Seen: 10/31/24 Interval history: Hospital day 7. Less burning pain since he started to use aqua K heating pad to the back of his head. He has made some modifications in the way that the wound is packed and is able to sleep better now. Continues to have drainage, in fact more drainage since the heating pad use than prior. No fevers, rigors, diaphoresis. Tolerating glucose management efforts, including diet as well as hypoglycemic treatment with insulin and anti-hyperglycemic treatment with metformin. Exam Narrative: Exam Narrative: I examined patient in his hospital room. Appears comfortable and in no acute distress. Wound assessed again today and I am able to express a fair amount of purulent discharge when compressing on the surrounding wound. This is no different than yesterday. The erythema is much less intense and the swelling is also much less intense. Lungs are clear to auscultation. Heart tones with regular rhythm. Abdomen benign. Moves all 4 extremities. Const: Vital Signs, click to edit/add: Vital Signs - 24 hr 10/30/24 19:00 10/30/24 23:14 10/31/24 02:44 Temperature 98.1 F 98.4 F 98.2 F Pulse Rate [Pulse Oximeter] 84 88 73 Respiratory Rate 18 18 16 Blood Pressure [Ri ght Arm] 145/86 H 145/85 H 135/82 Pulse Oximetry 98 95 95 Oxygen Delivery Me thod Room Air Room Air Room Air 10/31/24 07:00 10/31/24 07:00 10/31/24 11:00 Temperature 97.7 F 97.9 F Pulse Rate [Pulse Oximeter] 73 68 69 Respiratory Rate 16 18 18 Blood Pressure [Ri ght Arm] 134/85 114/78 Pulse Oximetry 99 96 Oxygen Delivery Me thod Room Air Room Air 10/31/24 15:00 10/31/24 15:00 Temperature Pulse Rate [Pulse Oximeter] 69 69 Respiratory Rate 18 18 Blood Pressure [Ri ght Arm] 129/79 Pulse Oximetry 96 Oxygen Delivery Me thod Room Air Labs Labs: Laboratory Results - last 24 hr 10/31/24 06:22 WBC 13.53 H RBC 3.48 L Hgb 10.1 L Hct 30.3 L MCV 87 MCH 29 MCHC 33 RDW Coeff of Michelle 12.5 Plt Count 256 Neut % (Auto) 67.4 Lymph % (Auto) 14.9 L Tripp % (Auto) 10.4 Eos % (Auto) 1.6 Baso % (Auto) 0.2 Neut # (Auto) 9.10 H Lymph # (Auto) 2.00 Tripp # (Auto) 1.40 H Eos # (Auto) 0.20 Baso # (Auto) 0.00 Abs Immat Gran (auto) 0.70 H Imm/Tot Granulo (auto) 5.5 Sodium 134 L Potassium 3.9 Chloride 99 Carbon Dioxide 29 Anion Gap 6 L BUN 23 Creatinine 1.1 Estimated Creat Clear 70.94 Estimated GFR 79 Glucose 157 H Calcium 9.2 C-Reactive Protein 5.9 H Imaging MRI soft tissue of neck: Radiologist's impression: 1. Diffuse cellulitis surrounding the left posterior neck open wound/ulceration, extending to the superficial posterior neck musculature with corresponding myositis. 2. No discrete/drainable abscess identified. 3. Reactive level 5 lymph nodes.
[2024-10-31] MEDS: TRAMADOL HCL 50 MG TABLET PO ×2 (17:55→23:50)
[2024-10-31 19:00] VITALS: BP 143/85; PULSE 82; RESP 18; TEMP 36.8; O2SAT 95
--- NOTE | 2024-10-31 19:09 | PC.NURSE ---
Nursing Care Hours: [id number] Pt this shift calm and cooperative, alert and oriented. Pain consistently 8/10 despite pain meds. Dressing changed by surgeon during assessment. Redness and swelling decreased from last night per life insurance underwriter and pt. Drainage soaking through dressing during the shift. Heating pad effective and tolerated well to back of neck and head. Insulin given per order. VSS.
[2024-10-31 23:00] VITALS: BP 129/80; PULSE 75; PULSE 82; RESP 16; RESP 18; TEMP 36.6; O2SAT 93
[2024-11-01] MEDS: KETOROLAC 30 MG/ML inj IVP ×2 (02:53→08:44)
[2024-11-01 03:00] VITALS: BP 128/82; PULSE 71; RESP 16; TEMP 36.8; O2SAT 94
[2024-11-01] MEDS: TRAMADOL HCL 50 MG TABLET PO (05:44)
--- NOTE | 2024-11-01 05:47 | PC.NURSE ---
End of shift report [id number]: Alert and oriented x 4, pleasant and cooperative with cares. Dressing to posterior neck changed, patient requested to shower prior to replacing bandage. Open area continues to drain copious amounts of purulent yellow/green drainage, approximately 30 cc of drainage massaged out of wound per instruction from MD. Cleansed and dressing replaced per orders, patient tolerated well. Pain to site is managed with current regime, patient lays from side to side to reduce pressure to wound. Afebrile throughout this shift.
[2024-11-01 06:50] LABS: C Reactive Protein* 5.1 mg/dL (0.5-1.0)
[2024-11-01 07:00] VITALS: BP 132/89; PULSE 66; RESP 18; TEMP 36.6; O2SAT 97
[2024-11-01] MEDS: CEFAZOLIN 2 GM in 0.9 % SODIUM CHLORIDE Mini-bag 100 ML IVPB ×2 (08:41→16:12)
[2024-11-01] MEDS: FLUCONAZOLE 100 MG TABLET 200 MG PO (08:45)
[2024-11-01] MEDS: METFORMIN 500 MG TABLET PO ×2 (08:45→12:56)
[2024-11-01] MEDS: 0.9 % SODIUM CHLORIDE 250 ml IV (08:46)
[2024-11-01] MEDS: lamoTRIgine 100 MG TABLET PO (08:48)
[2024-11-01] MEDS: SODIUM CHLORIDE 0.9 % (FLUSH) 10 ML SYRINGE 5 ML IVF (08:48)
--- NOTE | 2024-11-01 09:32 | PM.GSPN ---
Subjective Subjective Date Seen: 11/01/24 Interval history: Patient is doing well. He continues to have purulent drainage from his open posterior neck incision. He did not have any fevers. He has an IV antibiotics. Patient's pain is improving. Exam Narrative: Exam Narrative: Posterior neck has an open incision in the middle that is measuring at least 4 x 2.5 cm. It is approximately 2 cm deep. The base of the wound has purulence on the packed gauze and at the base but with pressure applied around the incision no additional purulence is expressed. There is induration surrounding the open wound. Patient does not complain of pain when exploring the wound. Const: Vital Signs, click to edit/add: Vital Signs - 24 hr 10/31/24 11:00 10/31/24 15:00 10/31/24 15:00 Temperature 97.9 F Pulse Rate [Pulse Oximeter] 69 69 69 Respiratory Rate 18 18 18 Blood Pressure [Ri ght Arm] 114/78 129/79 Pulse Oximetry 96 96 Oxygen Delivery Me thod Room Air Room Air 10/31/24 19:00 10/31/24 23:00 10/31/24 23:00 Temperature 98.2 F 97.8 F Pulse Rate [Pulse Oximeter] 82 82 75 Respiratory Rate 18 18 16 Blood Pressure [Ri ght Arm] 143/85 H 129/80 Pulse Oximetry 95 93 Oxygen Delivery Me thod Room Air Room Air 11/01/24 03:00 11/01/24 07:00 11/01/24 07:00 Temperature 98.2 F 97.9 F Pulse Rate [Pulse Oximeter] 71 66 66 Respiratory Rate 16 18 18 Blood Pressure [Ri ght Arm] 128/82 132/89 Pulse Oximetry 94 97 Oxygen Delivery Me thod Room Air Room Air Progress Note:A&P Assessment and plan (1) Staphylococcus aureus bacteremia: Status: Acute (2) Cellulitis of neck: Status: Acute Assessment and Plan: 53-year-old male admitted to the hospital with neck cellulitis and bacteremia currently improving with IV antibiotics and drainage. Discussed with the patient and his that they will continue packing with gauze and Vashe or saline twice a day. He will discharge home on IV antibiotics. Dr. Kearns will see him in clinic next week for follow-up.
[2024-11-01 11:00] VITALS: BP 141/87; PULSE 71; RESP 20; TEMP 36.8; O2SAT 96
[2024-11-01] MEDS: INSULIN ASPART 100 UNIT/ML SUBCUT ×2 (11:27→18:14)
[2024-11-01] MEDS: INSULIN GLARGINE,HUM.REC.ANLOG 100 UNIT/ML INSULN.PEN 25 UNIT SUBCUT (11:28)
--- NOTE | 2024-11-01 14:34 | PC.NURSE ---
End of Shift Note: Patient is currently getting a Midline placed and should be discharging home this evening.
[2024-11-01 15:00] VITALS: BP 140/87; PULSE 77; RESP 16; TEMP 36.9; O2SAT 96
--- NOTE | 2024-11-01 16:14 | PM.DS1 ---
DS: Providers Provider Date Seen: 11/01/24 Date of admission: 10/26/24 16:41 Primary care physician: Not a Local Provider Admitting Clinician: Jeny Penn MD Consults: 10/27/24 10:58 Consult to Physician [CONS] Routine Comment: posterior scalp Consulting Provider: Rachel Kearns Has provider been notified: Yes 10/29/24 12:40 Consult to Infectious Diseases [CONS] Routine Comment: MSSA Bacteremia, Neck Kerion Consulting Provider: Juan TeleInfectious Disease 10/29/24 15:18 Consult to Nutrition [CONS] Routine Comment: Reason for consult:: Diabetic Teaching 10/31/24 10:42 Consult to Infectious Diseases [CONS] Routine Comment: Consulting Provider: Juan TeleInfectious Disease Attending Physician on discharge: Jacky Foley MD Date of Discharge: 11/01/24 DS: Diagnosis Discharge Diagnosis (1) Staphylococcus aureus bacteremia: Status: Acute Problem details: -daily blood cultures to assure clearance, only positive blood culture was from 10/26/24 with others negative to date -echo today was reassuring for any obvious valve vegetations -MSSA presumed based on -mrsa nasal swab and wound culture, with blood culture result on 10/29/24 demonstrating linton-sensitive MSSA. -changed iv vanc to iv ancef 2 q 8 on 10/28. first dose of vanc was evening of 10/26. -no obvious sepsis associated with this bacteremia -discussed with ID, Dr. Melina Soler, on 10/29/24, who recommended 2 weeks of IV antibiotics from time of I&D (10/27/24) or from time of first negative BC (10/27/24) -will need Midline or PICC IV placement before discharge. Await decision about possible additional surgical intervention for debridement of kerion. -patient and agreeable to optimal treatment with 3 times daily IV cefazolin (2) Cellulitis of neck: Status: Acute Problem details: -surgical consult bedside 10/27 (Dr. Kearns). I and D bedside. I spoke with surgeon today, 10/29/2024 -s/p Vanc, as of 10/28 on IV Ancef -6 mg/kg/day of oral fluconazole divided b.i.d.to cover fungal element of the acute kerion infection. I discussed with Dr. Soler, ID, 10/29/24, who indicated the maximum dose of fluconazole is 200 mg daily. Thus on 10/29/24 I changed the dose of fluconazole from 250 mg po BID to 200 mg po once daily. -MRI from 10/30/2024 demonstrates no drainable wound. Appears to have a myositis in addition to the cellulitis. -discussion undertaken with surgeon and infectious disease specialists on 10/31/2024. Outcome of discussion is that there is nothing to surgically drain at this time. Continue with IV antibiotic therapy and oral fluconazole therapy. With the MRI findings suggesting myositis in addition to the cellulitis, infectious disease specialists suggested that we may need to extend the antibiotic treatment, either intravenous or switching to oral for a longer period of time subsequent to completion of a 2 week course of IV antibiotics. -continue with wound cares to the posterior neck as presently instituted (3) Kerion: Status: Suspected Problem details: -high dose PO fluconazole 250mg BID x 2 weeks. -I discussed with Dr. Daniels on 10/29/24 who recommended max dose of 200 mg po daily for 3-6 weeks. In his case she recommended dose of 200 mg po daily for 4 weeks and then follow-up with primary care physician or a lost charge card clerk who deals with treating karions to consider stopping medicine at that time or continue for additional treatment. -Additionally, patient needs optimization of blood glucose management. In hospital thus far his BG levels have not been optimally controlled in great measure because of his reluctance to allow us to intensify his treatment. Will continue to work with him to try to optimize treatment of BG levels. (4) DM (diabetes mellitus), type 2: Status: Acute Problem details: -non compliant. Working on education with patient who is reluctant to treat his elevated blood glucose levels -A1c 13.0 on 10/26/24 -initiated metformin therapy 500 mg p.o. b.i.d. with food on 10/26/24. Metabolic acidosis has resolved. Increase dose to 500 mg po TID starting 10/30/24 -Lantus, insulin glargine, increasing dose as waranted - started at 10 units daily, then yesterday increased to 20 units daily, and starting tomorrow morning increase to 30 units daily -mealtime insulin, 4 units t.i.d. with food -sliding scale for additional coverage, increased on 10/29/24 to medium-high dose -spoke with him and his ex- who is present with him in the room and recommended that he ambulate a minimum of 6 times daily in the hallway, twice in the morning, twice in the afternoon, twice in the evening -nutrition consult placed 10/29/2024 -ongoing adjustment in insulin as warranted (5) Leukocytosis: Status: Acute Problem details: Likely due to acute infection. Monitor and trend (6) Seizure disorder: Status: Acute Problem details: Currently on lamotrigine 100 mg the morning and 200 mg in the evening (although it doesn't appear he has been taking this). No seizures since December of 2022 -will reduce Lamictal dosing to 100 mg b.i.d. given high-dose fluconazole therapy DS: Summary Hospital Course Hospital Course: Admission history of present illness: ?53 year old male with type 2 diabetes (he is currently he is managing his diabetes with diet alone. It sounds like he has chosen not to be on some diabetes medications, like metformin due to potential side effects. He says he has done his own research on metformin and knows that it can cause neuropathy and other side effects. He has a device at home for checking his A1c and says it has been ?pretty good? lately, but then he says he has not checked in a while. It does not sound like he routinely checks his blood sugars). He also has a history seizures (previously on Keppra. Apparently that caused mood disturbance so his neurologist to come off that and started him on a different seizure med. He does not know the name of his new seizure med. He also has a history of appendectomy and hernia surgery. 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 He notes that he has had an infection on the back of his scalp at the base of his hairline at the top of his neck. It 1st started about a week ago last weekend and was roughly the size of a quarter or a silver dollar. Beginning mid week it started spreading rapidly and became fairly large, now measuring about 10 x 12 cm with some pain and erythema spreading all the way up to the back of both of his ears. He has not had any fevers but he has been feeling a bit weak and run down. It is painful and he rates his pain an 8/10. It has been draining a yellow whitish greenish purulent fluid from multiple spots in the skin. He is concerned he might have a abscess. He does have a previous history of skin infections over the past decade related to minor skin trauma. He has been told that these are staph infections and treated for them. I find no record of him having any type of culture of skin or soft tissue to identify a staph infection. He does not recall previous MRSA colonization. He does not know what his blood sugars been running. He does not regularly check his blood sugar. He tells me that every 2 weeks or so he takes a metformin if he feels his blood sugars are high. He does not feel like he has a fever. No trouble breathing. No vomiting. He is managing his diabetes primarily with diet. He tells me that he will fast for a week every month. During that week he will have a little bit of soup but no other calories. He has lost about 8.5 kg since December of 2022. He has a seizure disorder started in December 2022. He attributes it to high blood sugar. At that time his hemoglobin A1c was 11.4. By May 2023 is hemoglobin A1c was down to 8.9. He has had no seizures since December of 2022. He was started on broad-spectrum IV antibiotics with vancomycin and piperacillin and tazobactam. Blood cultures came back positive for methicillin sensitive Staph coccus aureus, pansensitive. We switched to IV cefazolin at this time. Patient had a carry on in the posterior aspect of his neck which was oozing pus on presentation. These cultures also grew out pansensitive Staph coccus aureus. In addition to the IV antibiotics as specified above, patient was also started on very high dose of fluconazole 6 milligrams/kilogram in divided doses. Initially was on 250 mg orally twice daily. After discussing with Infectious Disease, the dose was dropped to the maximum dose of 200 mg once daily. Initial ultrasound imaging of the neck demonstrated no obvious abscess. Despite this patient had the wound incised and drained. Twice daily dressing changes for the wound care were instituted. Because the wound continued to have large quantities of discharge and drainage CT scan of neck soft tissue was obtained. Again no abscess or fluid collection was demonstrated. The continued with dressing changes. In time after discussing with Infectious Disease, surgery, radiology, decision was made to perform an MR scan of the soft tissue of the neck. Again no abscess or fluid collection per se was noted. The MR scan did indicate that patient has a myositis in the superficial muscle group of the neck in addition to the cellulitis. Discussion was held between the surgeon and infectious disease specialists and myself and the decision was to continue with the current line of treatment. Over time decision will need to be made as to whether not to switch to oral antibiotics or continue with longer-term IV antibiotics. Additionally decision will need to be made about whether not to extend the fluconazole therapy from 4 weeks to as long as 6 or 8 weeks depending on his response to the treatment intervention efforts. Throughout the hospitalization we worked on blood glucose management. We emphasized to the patient and his that his white blood cells will function optimally if we can maintain his blood glucose levels between 100-180. Exp[address] Kearns will continue to see the patient in the [facility]. Patient will establish care with a primary care physician. Status at Discharge Functional status at discharge: independent ambulation Overall status at discharge: patient is progressing back to baseline Time Spent with Patient Time attestation: Total time spent providing and/or coordinating discharge services: Time spent: Greater than 30 minutes Exam Narrative: Exam Narrative: I examined patient in his hospital room. Appears comfortable and in no acute distress. Wound assessed again today and I am able to express a fair amount of purulent discharge when compressing on the surrounding wound. This is no different than yesterday. The erythema is much less intense and the swelling is also much less intense. Lungs are clear to auscultation. Heart tones with regular rhythm. Abdomen benign. Moves all 4 extremities. Independent in transfer, station, gait. No lower extremity edema. Const: Vital Signs, click to edit/add: Vital Signs - 24 hr 10/31/24 19:00 10/31/24 23:00 10/31/24 23:00 Temperature 98.2 F 97.8 F Pulse Rate [Pulse Oximeter] 82 82 75 Respiratory Rate 18 18 16 Blood Pressure [Ri ght Arm] 143/85 H 129/80 Pulse Oximetry 95 93 Oxygen Delivery Me thod Room Air Room Air 11/01/24 03:00 11/01/24 07:00 11/01/24 07:00 Temperature 98.2 F 97.9 F Pulse Rate [Pulse Oximeter] 71 66 66 Respiratory Rate 16 18 18 Blood Pressure [Ri ght Arm] 128/82 132/89 Pulse Oximetry 94 97 Oxygen Delivery Me thod Room Air Room Air 11/01/24 11:00 Temperature 98.2 F Pulse Rate [Pulse Oximeter] 71 Respiratory Rate 20 Blood Pressure [Ri ght Arm] 141/87 H Pulse Oximetry 96 Oxygen Delivery Me thod Room Air DS: Data Data Completed and Pending Labs on day of discharge: Labs from last 24 hours 11/01/24 06:11 C-Reactive Protein 5.1 H Preliminary micro results at discharge 10/28/24 06:15 Blood Culture - Preliminary Blood NO GROWTH AFTER 96 HOURS 10/28/24 06:23 Blood Culture - Preliminary Blood NO GROWTH AFTER [address] scan of soft tissue of the neck: Radiologist's impression: 1. Diffuse subcutaneous cellulitis along the left posterior suboccipital and left upper neck soft tissues and open wound. Several small rim enhancing and partially rim enhancing structures in the deep subcutaneous fat concerning for phlegmon and small abscesses. 2. Few prominent bilateral level 5 lymph nodes likely reactive in etiology. Otherwise unremarkable CT of the neck. MRI scan of the soft tissue of the neck: Radiologist's impression: 1. Diffuse cellulitis surrounding the left posterior neck open wound/ulceration, extending to the superficial posterior neck musculature with corresponding myositis. 2. No discrete/drainable abscess identified. 3. Reactive level 5 lymph nodes. Discharge Plan Discharge Disposition: Home, Self-Care Date of Admission: 10/26/24 16:41 Attending Provider on Discharge: Jacky Foley Consulting Providers: Racehl Kearns; Paula Delgado; Rachel Avalos Primary Care Provider: Provider,Not a Local Condition: Improved Anticipated Discharge Date/Time: 11/01/24 15:58 Discharge Medications: New cefazolin 2 gram Recon Soln 2 g IVPB Q8H 9 Days Qty: 27 0RF Rx Instructions: last dose 11/10/2024 fluconazole [Diflucan] 100 mg Tablet 200 mg PO DAILY 22 Days Qty: 44 1RF metformin 500 mg tablet 1,000 mg PO BID Qty: 60 2RF Humulin 70/30 U-100 KwikPen 100 unit/mL (70-30) insulin pen See Rx Instructions .ROUTE .COMPLEX Qty: 12 2RF Rx Instructions: Administer 2/3 of dose in the morning with breakfast, and 1/3 of dose in the late afternoon with evening meal. Start at 26 units in AM and 13 units in the PM. acetaminophen 325 mg tablet 650 mg PO QID PRNQty: 100 0RF Vashe 0.033 % irrigation solution 1 irrig irrigation BID PRN (Reason: wound care) Qty: 1000 1RF Continued lamotrigine 100 mg tablet 100 mg PO BID Discharge Orders: Discharge Order (Routine); Ordered 11/01/24 Ordered By: Jacky Foley Patient Education: Acetaminophen (By mouth), Fluconazole (By mouth), Cefazolin (By injection), Metformin (By mouth), Insulin NPH (By injection), Cellulitis (GEN), Type 2 Diabetes in Adults: New Diagnosis (DC), Skin Yeast Infection (ED), Bacteremia (DC), What to Do if Your Blood Sugar is Low (DC), Diabetes and Nutrition (DC), Diabetes and Exercise (ED), Type 2 Diabetes Management for Adults (DC) Additional Instructions: 1. [facility] wound clinic referral - please assess in next 3-7 days if possible 2. Follow-up with Dr. Kearns in next 3-7 days if possible 3. New patient consultation in [facility] system in next 3-5 days if possible: A. needs referral for dermatology appointment in 2-3 weeks for consultation regarding posterior neck kerion infected with MSSA B. needs diabetes education 4. Wound care orders: A. dressing change twice daily minimum B. remove dressing C. cleanse with normal saline and gauze D. leave open to air and drain for 20-30 minutes E. pack with VASHE soaked gauze F. cover with ABD pad and paper tape G. may change outer dressing if soaked H. may use warm pack to area while dressing is in place 5. Monitor blood glucose levels minimum of twice daily Activity Level: Activity as Tolerated Discharge Diet: Regular Follow Up Appointments: [facility] Med/Surg [Other] - 11/08/24 1:00 pm (Need to return to have PICC Line dressing changed. If your home care agency can't change your dressing.) Wound Healing Center [Provider Group] - 11/06/24 12:45 pm Rachel Kearns MD [Staff Physician] - 11/05/24 10:45 am ([facility] for follow-up.) Provider,Not a Local [Primary Care Provider] - Forms: [facility] Info Instructions
--- NOTE | 2024-11-01 17:09 | PC.SOCIAL ---
Discharge planning: Met with pt in room to discuss home IV abx order. PT is aware and agrees to doing home IV abx. Pt states he has done this before and has no concerns and does not feel he needs home health visits. At pt's request called [facility] (main#[phone]) and spoke with Mery ([phone]) (email: [email or web address]) in intake. Provided Mery with initial demographic information, and prescription and MD order for IV abx. Later provided her with Midline report and confirmed pt is agreeable to co-payment of $60/day. Mery requested RN contact the pharmacist to answer additional questions. Mery stated that it is technically past the cut off time to arrange for same day start of home abx and it is possible they will not be able to start until Monday. However, she was still working on this and had not confirmed a decision at 4:00. tannery worker called back at 5:00 to Mery's direct line and left message on this and emailed her to request she contact the charge nurse as soon as possible with decision on delivery and start date for home infusion.
--- NOTE | 2024-11-01 19:43 | PC.NURSE ---
Discharge Note: The patient discharged home with his this evening. Back of neck dressing is to be changed tonight by the patients , I did offer to change it. All discharge instructions were covered in depth and all questions were answered. Some of the patients medications were picked up by his , others are to be delivered to his house and some are to be picked up after the weekend. Follow up appointments have been scheduled and the patient is to call to choose a primary doctor. Christi DENNEY BSN
--- NOTE | 2024-11-04 10:08 | PC.NURSE ---
Contacted patient after receiving a call from Dr. Foley. Dr. Foley wanted to make sure he had an appointment to see a primary physician. Which patient stated he had not done that yet. I then had the [facility] schedule an appointment for the patient along with the blood work that he was wanting and needs to have the primary physician follow up on the lab work. He will also be returning to Med/Surg to have his midline dressing changed. Called patient twice and update him with all this information.
== END 2024-11-01 19:02 | disposition home or self-care (01) | DRG 872 ==
LOC: ED 12:31 → MEDSURG 16:41
PROVIDERS: Internal Medicine; Admitting Provider Family Medicine; Emergency Provider Emergency Medicine; Visit Provider Family Medicine
DX: R78.81 Bacteremia (principal); L03.221 Cellulitis of neck; E87.21 Acute metabolic acidosis; B35.0 Tinea barbae and tinea capitis; B95.61 Methicillin susceptible Staphylococcus aureus infection as the cause of diseases classified elsewhere; G40.909 Epilepsy, unspecified, not intractable, without status epilepticus; E11.65 Type 2 diabetes mellitus with hyperglycemia; D72.829 Elevated white blood cell count, unspecified; B96.89 Other specified bacterial agents as the cause of diseases classified elsewhere
CPT/HCPCS: 36410; 36415; 70491; 70543; 76604; 76705; 76937; 80048; 80069; 80076; 82803; 82962; 83036; 83605; 85025; 86140; 87040; 87070; 87081; 87186; 87205; 87800; 93306; 93308; 99285; J2003; A9270; A9575; C1751; J0690; J1171; J1450; J1815; J1885; J3372; J3473; J7050; J7120; Q9967

== ENCOUNTER 2024-11-05 11:05 | Outpatient (CLI) | payer OTHER, SELFPAY | END 2024-11-05 11:06 | disposition home or self-care (01) | LOC: NFLDREF 11:06 | PROVIDERS: PCP Registered Nurse; Visit Provider Surgery | DX: E11.9 Type 2 diabetes mellitus without complications (principal) | CPT/HCPCS: 86140 ==

== ENCOUNTER 2024-11-08 12:00 | Outpatient (RCR) | payer OTHER, SELFPAY ==
[2024-11-08 12:44] VITALS: BP 159/94; PULSE 73; RESP 16; TEMP 36.8; O2SAT 98
--- NOTE | 2024-11-08 13:05 | PC.NURSE ---
Pt will complete antibiotic infusion at home on 11/10 with as they have doing. Follow up with Dr. Stout 11/12 @ [id number]. Mess[address] Dr[address] Kearns who states that her team can/will remove Midline at 11/12 appointment and decide at that time if antibiotics are needed further that she will transition him to orals. Pt and are up to date on information.
== END 2025-02-06 23:59 | disposition home or self-care (01) ==
LOC: MS OUT 12:00
PROVIDERS: PCP Registered Nurse; Visit Provider Family Medicine
DX: E11.628 Type 2 diabetes mellitus with other skin complications (principal); L03.811 Cellulitis of head [any part, except face]; Z79.84 Long term (current) use of oral hypoglycemic drugs
CPT/HCPCS: A4221

== ENCOUNTER 2024-11-13 11:42 | Outpatient (CLI) | payer OTHER, SELFPAY ==
--- NOTE | 2024-11-13 12:15 | CRLHL7_ITS ---
For Patients: As a result of the Century Cures Act, medical imaging exams and procedure reports are released immediately into your electronic medical record. You may view this report before your referring provider. If you have questions, please contact your health care provider. INDICATION: Right arm pain TECHNIQUE: Venous duplex ultrasound of the right upper extremity utilizing compression with jones-scale, color Doppler, and spectral Doppler imaging. COMPARISON: None FINDINGS: There is a partially occlusive deep vein thrombosis in the mid and proximal portion of 1 of the 2 brachial veins. There is no sonographic evidence of deep vein thrombosis in the right internal jugular, innominate, subclavian, or axillary veins. There is no visualized superficial vein thrombosis in the basilic or cephalic veins. The soft tissues are unremarkable. IMPRESSION: Partially occlusive deep vein thrombosis in the mid and proximal portion of 1 of the 2 brachial veins. Preliminary report was provided by the patient`s fitter tacker to the patient`s nurse following completion of the exam. Dictated by Christopher Valdez MD @ 11/13/2024 12:57:50 PM (Electronically Signed)
== END 2024-11-13 11:43 | disposition home or self-care (01) ==
LOC: US 11:43
PROVIDERS: PCP Registered Nurse; Visit Provider Surgery
DX: M79.601 Pain in right arm (principal); I82.621 Acute embolism and thrombosis of deep veins of right upper extremity; Z45.2 Encounter for adjustment and management of vascular access device
CPT/HCPCS: 93971

== ENCOUNTER 2024-11-16 00:02 | Emergency (ER) | payer OTHER, SELFPAY ==
--- OUTSIDE RECORDS SUMMARY | 2024-11-16 00:04 | XMS_ITS | Clinical Summary ---
Author Organization [facility] Address [address] [place] [id number] Care Team Providers Care Dirt Supervisor Name Role Phone No Ref-Primary, Physician Primary [...] Plan of Treatment Not on file [place] [address] [place] [address] INSURANCE Advance Directives For more information, please contact: [phone] * Full Code (Latest Code Status on File) Date Activated Date Inactivated Comments 01/25/2018 3:21 AM 01/27/2018 3:56 PM Care Teams Dirt Supervisor Relationship Specialty Start Date End Date No Ref-Primary, Physician PCP - General 03/23/20
--- OUTSIDE RECORDS SUMMARY | 2024-11-16 00:05 | XMS_ITS | Encounter Summary ---
Author Organization [facility] Address [address] [address] Care Team Providers Care Loading Unit Tool Setter Name Role Phone Paula Infante MD Primary Care Provider [phone] Encounter Details Date Type Department Care Team (Late Contact Info) Description 06/21/2016 Correspondence [facility] ([facility]3] Occupational and Environmental Medicine [address] [place] [id number] Corona Case MD [address] [place] [address] [phone] PRE-PLACEMENT EXAM Social History Tobacco Use Types Packs/Day Years Used Date Smoking Tobacco: Never Assessed Sex and Gender Information Value Date Recorded Sex Assigned at Not on file Legal Sex Male 4:22 AM CDT Gender Identity Not on file Sexual Orientation Not on file documented as of this encounter Plan of Treatment Upcoming Encounters Date Type Department Care Team (Late Contact Info) Description 06/24/2025 9:30 AM CDT Appointment [facility] [address] Neurology [address] [place] [address] Marjorie Wan MD [address] [place] [address] documented as of this encounter Visit Diagnoses Not on filedocumented in this encounter Additional Health Concerns Infection Onset Date Last Indicated Resolved Time R/O COVID19 05/19/2023 05/19/2023 05/20/2023 3:54 AM CDT documented as of this encounter Care Teams Loading Unit Tool Setter Relationship Specialty [place] [address] [place] [address] PCP - General Family Practice 05/15/23 documented as of this encounter
--- OUTSIDE RECORDS SUMMARY | 2024-11-16 00:05 | XMS_ITS | Clinical Summary ---
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 Gender Identity Not on file Sexual Orientation Not on file Obstetrics History Last Filed Vital Signs Vital Sign Reading Time Taken Comments Blood Pressure 136/82 03/24/2017 8:22 AM CDT Pulse 69 03/24/2017 8:22 AM CDT Temperature 36.8 C (98.2 F) 03/24/2017 8:22 AM CDT Respiratory Rate 18 08/05/2016 4:19 PM DRY PAN OPERATOR Oxygen Saturation 98% 03/24/2017 8:22 AM CDT Inhaled Oxygen Concentration - - Weight 80.6 kg (177 lb 12.8 oz) 03/24/2017 8:22 AM CDT Height 171.5 cm (5' 7.5) 03/24/2017 8:22 AM CDT Body Mass Index 27.44 03/24/2017 8:22 AM CDT Plan of Treatment Health Maintenance Due Date Last Done Comments HIV for age 15-65 11/28/1983 Hepatitis C screening for ag e 18-79 1986 Colonoscopy through age 75 2013 Depression screening for age 12+ 07/06/2017 07/06/20 16, 07/06/2016 BMI (ht and wt on same day) for age 18+ 03/24/2018 03/24/2017, 02/22/2017, 11/18/2016, Additional history exists Pneumococcal series for age 50+ (2 of 2 - PCV) 2018 09/14/2012 Zoster (shingles) series for age 50+ (1 of 2) 2018 Lipids for age 45-75 11/18/2021 11/18/2016, 08/03/2016, 02/22/2013, Additional history exists Tetanus booster 09/14/2022 09/14/2012 COVID-19 vaccine series ( season) 2024 Influenza Vaccine (#1) 2024 06/07/2013 Tdap Completed 09/14/2012 Procedures Procedure Name Priority Date/Time Associated Diagnosis Comments ECHO TTE COMPLETE WO CONTRAST Routine 10/27/2024 2:18 PM DRY PAN OPERATOR Bacteremia due to Staphylococcus Cardiac murmur LIPID PANEL W REFLEX MEASURED LDL Routine 11/18/2016 7:40 AM CDT from Last 3 Months or Most Recently Relevant to Health Maintenance Results * ECHO TTE COMPLETE WO CONTRAST (10/27/2024 2:18 PM DRY PAN OPERATOR) AORTIC VALVE MEAN PG 5 mmHg EJECTION FRACTION 55 % LVEDD 4.3 cm EJECTION FRACTION 55 - 60% Anatomical Region Laterality Modality Ultrasound 10/27/2024 1:16 PM DRY PAN OPERATOR Narrative 10/27/2024 2:36 PM DRY PAN OPERATOR ECHOCARDIOGRAM SABAS MCDONOUGH : 1970 53 years Study Date: 10/27/2024 1:16:11 PM Gender: M BP: 138/85 mmHg Height: 170.00 cm BSA: 1.84 m Weight: 73.00 kg Tech: [facility] Referring MD: JENY PENN Site: [facility] Reading Location: MOBILE IP Patient Location: Inpatient. Procedure: 2D, Color Doppler and Spectral Doppler. Indication for study: Bacteremia, Heart Murmur Cardiac Rhythm: Normal sinus.Study quality: Good. Final Impressions: 1. Normal LV size, mildly increased wall thickness, normal global systolic function with an estimated EF of 55 - 60%. 2. Right ventricular cavity size is normal, global systolic RV function is normal. 3. No significant valve disease detected. 4. The aortic sinus is normal for age/sex/bsa with a maximal diameter of 3.9 cm. 5. The ascending aorta is normal for age/sex/bsa with a maximal diameter of 3.9 cm. Comparison Compared to prior exam of 12/27/2022, there has been no significant change. Chamber Sizes and Function Normal left ventricular size, mildly increased wall thickness, normal global systolic function with an estimated EF of 55 - 60%. No resting regional wall motion abnormality visualized. Left atrial size is normal. Right ventricular cavity size is normal, global systolic RV function is normal. RV wall thickness is normal. The right atrium is normal. The pulmonary artery is of normal size and origin. The sinus of Valsalva is normal for age/sex/bsa. The ascending aorta is normal for age/sex/bsa. Valves, RV Pressures and Diastolic Function The aortic valve is normal in structure and trileaflet, no stenosis and no regurgitation. The mitral valve is normal in structure, trace mitral regurgitation. Indeterminate pattern of LV diastolic filling. The tricuspid valve is normal in structure. Tricuspid regurgitation is trace regurgitation. Unable to assess right ventricular systolic pressure. The pulmonic valve is normal. Trace pulmonary regurgitation. Masses, Effusion, Shunts There is no pericardial effusion. The inferior vena cava is normal sized, respiratory size variation greater than 50%. No left to right shunting was detected by limited color flow Doppler interrogation of the interatrial septum. MEASUREMENTS AND CALCULATIONS 2-D Measurements and LV Function: LVID (d) 4.3 cm LV FS% (2D) 43 % LVID (s) 2.4 cm LVOT diameter 2.3 cm IVS (d) 1.4 cm HR 101 bpm LVPW (d) 1.1 cm LA Vol index 27 ml/m2 Ao Sinus 3.9 cm Asc Ao 3.9 cm Diastology: Mitral Tissue Doppler E Peak 0.8 m/s e', Septum 0.05 m/s A Peak 0.7 m/s e', Lateral 0.04 m/s E/A 1.2 E/e' Average 15.31 DT 165 msec Aortic Valve: Vmax 1.5 m/s JANIE (V) 2.99 cm VTI 0.20 m JANIE (I) 3.13 cm LVOT V max 1.0 m/s Max PG 9 mmHg LVOT VTI 0.15 m Mean PG 5 mmHg SV 63 ml Dim Index 0.75 SV index 34 ml/m CO 6.3 l/min CI 3.4 l/min/m Mitral Valve: MVA 4.6 cm MV P 1/2 48 msec Tricuspid Valve and estimated PA pressures: TAPSE 1.7 cm . This study was interpreted by an [facility] accredited facility. CC: HIM (med records) [facility], Med/Surg - IP [facility]. Final Procedure Note Bishnu Calderon MD - 10/27/2024 ECHOCARDIOGRAM SABAS MCDONOUGH : 1970 53 years Study Date: 10/27/2024 1:16:11 PM Gender: M BP: 138/85 mmHg Height: 170.00 cm BSA: 1.84 m Weight: 73.00 kg Tech: [facility] Referring MD: JENY PENN Site: [facility] Reading Location: MOBILE Patient Location: Inpatient. Procedure: 2D, Color Doppler and Spectral Doppler. Indication for study: Bacteremia, Heart Murmur Cardiac Rhythm: Normal sinus.Study quality: Good. Final Impressions: 1. Normal LV size, mildly increased wall thickness, normal globalsystolic function with an estimated EF of 55 - 60%. 2. Right ventricular cavity size is normal, global systolic RV functionis normal. 3. No significant valve disease detected. 4. The aortic sinus is normal for age/sex/bsa with a maximal diameter of3.9 cm. 5. The ascending aorta is normal for age/sex/bsa with a maximal diameterof 3.9 cm. Comparison Compared to prior exam of 12/27/2022, there has been no significantchange. Chamber Sizes and Function Normal left ventricular size, mildly increased wall thickness, normalglobal systolic function with an estimated EF of 55 - 60%. No restingregional wall motion abnormality visualized. Left atrial size is normal.Right ventricular cavity size is normal, global systolic RV function isnormal. RV wall thickness is normal. The right atrium is normal. Thepulmonary artery is of normal size and origin. The sinus of Valsalva isnormal for age/sex/bsa. The ascending aorta is normal for age/sex/bsa. Valves, RV Pressures and Diastolic Function The aortic valve is normal in structure and trileaflet, no stenosis and noregurgitation. The mitral valve is normal in structure, trace mitralregurgitation. Indeterminate pattern of LV diastolic filling. Thetricuspid valve is normal in structure. Tricuspid regurgitation is traceregurgitation. Unable to assess right ventricular systolic pressure. Thepulmonic valve is normal. Trace pulmonary regurgitation. Masses, Effusion, Shunts There is no pericardial effusion. The inferior vena cava is normal sized,respiratory size variation greater than 50%. No left to right shunting wasdetected by limited color flow Doppler interrogation of the interatrialseptum. MEASUREMENTS AND CALCULATIONS 2-D Measurements and LV Function: LVID (d) 4.3 cm LV FS% (2D) 43 % LVID (s) 2.4 cm LVOT diameter 2.3 cm IVS (d) 1.4 cm HR 101 bpm LVPW (d) 1.1 cm LA Vol index 27 ml/m2 Ao Sinus 3.9 cm Asc Ao 3.9 cm Diastology: Mitral Tissue Doppler E Peak 0.8 m/s e', Septum 0.05 m/s A Peak 0.7 m/s e', Lateral 0.04 m/s E/A 1.2 E/e' Average 15.31 DT 165 msec Aortic Valve: Vmax 1.5 m/s JANIE (V) 2.99 cm VTI 0.20 m JANIE (I) 3.13 cm LVOT V max 1.0 m/s Max PG 9 mmHg LVOT VTI 0.15 m Mean PG 5 mmHg SV 63 ml Dim Index 0.75 SV index 34 ml/m CO 6.3 l/min CI 3.4 l/min/m Mitral Valve: MVA 4.6 cm MV P 1/2 48 msec Tricuspid Valve and estimated PA pressures: TAPSE 1.7 cm . This study was interpreted by an [facility] accredited facility. CC: HIM (med records) [facility], Med/Surg - IP [facility]. Final us Jeny Penn MD ECHO ORD Final Result * (ABNORMAL) LIPID PANEL W REFLEX MEASURED LDL (11/18/2016 7:40 AM CDT) CHOLESTEROL,TOTAL 176 100 - 199 mg/dL 11/18/2016 8:17 AM CDT [facility] TRIGLYCERIDES 112 <150 mg/dL 11/18/2016 8:17 AM CDT [facility] HDL CHOLESTEROL 35(L) >40 mg/dL 7 8:17 AM CDT [facility] NON-HDL CHOLESTEROL 141 <145 mg/dl 11/18/2016 8:17 AM CDT [facility] CHOL/HDL RATIO 5.03(H) <4.50 11/18/2016 8:17 AM CDT [facility] LDL CHOLESTEROL 119 <=130 mg/dL 11/18/2016 8:17 AM CDT [facility] PATIENT STATUS FASTING 11/18/2016 8:17 AM CDT [facility] Blood BLOOD SPECIMEN / Unknown Venipuncture / Unknown 11/18/2016 7:40 AM CDT 11/18/2016 7:40 AM CDT Yovani Hernandez MD CHEMISTRY Final Result [facility] [address] [place] [address], from Last 3 Months or Most Recently [...] Code Status Discussion: Not Discussed Care Teams Sap Data Analyst Relationship Specialty Start Date End Date Clinic, No Pcp Or . PCP - General 05/12/17
--- OUTSIDE RECORDS SUMMARY | 2024-11-16 00:05 | XMS_ITS | Clinical Summary ---
Author Organization [facility] Address [address], [place] [address] Care Team Providers Care Relocation Counselor Name Role Phone Paula Infante MD Primary Care Provider Source Comments You are receiving this document as you are listed as the primary care provider,follow-up provider, or the patient has been referred to you for consultation.This is in compliance with the Medicare and[facility] Cent[facility] EHR Incentive Program,which states Providers who transition their patient to another setting of careor provider of care or refers their patient to another provider of care shouldprovide summary care record for each transition of care or referral. 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 Height 172.7 cm (5' 8) 05/12/2023 7:11 AM CDT Body Mass Index 28.28 05/12/2023 7:11 AM CDT Plan of Treatment Upcoming Encounters Date Type Department Care Team (Late st Contact Info) Description 06/24/2025 9:30 AM CDT Appointment Specialty [facility] [address] [place] [address] Marjorie Wan MD [address] [place] [address] Health Maintenance Due Date Last Done Comments Colon Cancer Screening Plan Due 1970 Hep C Screening (Preventive Services) 1970 HIV Screening (Preventive Services) 1984 Pneumococcal 50+ Yrs (2 of 2 - PCV) 09/14/2013 09/14/2012 Zoster/Shingles (1 of [...] Direct LDL(If Needed) (05/11/2023 7:09 AM CDT) [facility] Cholesterol 265(H) 0 - 199 mg/dL 05/11/2023 10:56 AM [facility] Triglyceride 222(H) <=149 mg/dL 05/11/2023 10:56 AM [facility] HDL Cholesterol 33(L) >=40 mg/dL 3 10:56 AM [facility] LDL, Calculated 188(H) <130 mg/dL 3 10:56 AM [facility] Non HDL Chol, Calculated 232(H) <=159 mg/dL 05/11/2023 10:56 AM [facility] Cholesterol/HDL Ratio 8.0 05/11/2023 10:56 AM [facility] Hours Fasting 10.0 8 - 12 Hours 05/11/2023 10:56 AM [facility] Blood Venipuncture / Unknown 05/11/2023 7:09 AM CDT 05/11/2023 7:09 AM CDT Min Osorio MD LAB_1 Final Result [facility] [address] [place] [address], [facility] [phone] [facility] [address] [place] [address], [facility] [phone] * (ABNORMAL) Hgb A1C (Expected: Now) - Collect in Lab (05/11/2023 7:09 AM CDT) Pathologist [facility] Hemoglobin A1C 8.9(H) <=5.6 % 05/11/2023 2:[address] [facility] Estimated Average Glucose (Calc) 209 < 117 mg/dL 05/11/2023 2:[address] [facility] Comment:Estimated average gl ucose (eAG) converts A1c into glucose units (mg/dL) and estimates average glucose over the past approximately 3 months. The eAG reference interval (<117 mg/dL) corresponds to an A1c of <5.7%. Blood Venipuncture / Unknown 05/11/2023 7:09 AM CDT 05/11/2023 7:09 AM CDT Narrative [facility] - 05/11/2023 2:36 PM CDT For patients not previously diagnosed with diabetes: 5.7-6.4%: Increased risk for diabetes 6.5% and greater: Diagnostic for diabetes For patients diagnosed with diabetes: <8.0%: Goal of therapy for ages 18-75 Clinicians may recommend a higher or lower goal for specific individuals. Min Osorio MD LAB_[address] [facility] [address] [address], [facility] [phone] * (ABNORMAL) Comp Metabolic Panel (03/03/2023 7:51 AM CDT) Pathologist [facility] Sodium 142 136 - 145 mmol/L 03/03/2023 10:12 AM CDT [facility] Potassium 5.0 3.5 - 5.1 mmol/L 03/03/2023 10:12 AM CDT [facility] Chloride 105 98 - 109 mmol/L 03/03/2023 10:12 AM [facility] CO2 26 20 - 29 mmol/L 03/03/2023 10:12 AM [facility] Anion Gap 11 7 - 16 mmol/L 03/03/2023 10:12 AM [facility] Calcium 9.5 8.4 - 10.4 mg/dL 03/03/2023 10:12 AM [facility] BUN 16 7 - 26 mg/dL 03/03/2023 10:12 AM [facility] Creatinine 0.90 0.73 - 1.18 mg/dL 03/03/2023 10:12 AM [facility] Alkaline Phosphatase 56 40 - 150 U/L 03/03/2023 10:12 AM [facility] AST (SGOT) 13 10 - 40 U/L 03/03/2023 10:12 AM [facility] ALT (SGPT) 20 <=55 U/L 03/03/2023 10:12 AM [facility] Bilirubin, Total 0.6 0.2 - 1.2 mg/dL 03/03/2023 10:12 AM [facility] Protein, Total 7.0 6.4 - 8.3 g/dL 03/03/2023 10:12 AM [facility] Albumin 4.1 3.5 - 5.0 g/dL 03/03/2023 10:12 AM [facility] Glucose 298(H) 70 - 100 mg/dL 03/03/2023 10:12 AM [facility] Comment:The given reference range is for the fasting state. Non-fasting reference range for glucose is 70 - 180 mg/dL. Hours Fasting 15 03/03/2023 10:12 AM [facility] GFR, Estimated >60 >60 mL/min/1.7 3m2 03/03/2023 10:12 AM [facility] Blood Venipuncture / Unknown 03/03/2023 7:51 AM CDT 03/03/2023 7:51 AM T us Petra Bermudez MD LAB_1 Final Result [facility] [address] [place] [address], [facility] [phone] [facility] [address] [place] [address], [facility] [phone] * Albumin/Creatinine Ratio,Random Urine (02/10/2023 12:00 PM CDT) Albumin/Creati nine Ratio, Urine, Random 14 <30 mg/g 02/10/2023 4:53 PM CDT [facility] Albumin, Urine, Random 13.7 mg/L 02/10/2023 4:53 PM CDT [facility] Creatinine, Urine, Random 95 >20 mg/dL mg/dL 02/10/2023 4:53 PM CDT [facility] Urine Non-blood Collection / Unknown 02/10/2023 12:00 PM CDT 02/10/2023 12:00 PM CDT Min Osorio MD LAB_1 Final Result [facility] [address] [place] [address], [facility] [phone] from Last 3 Months or Most Recently Relevant to Health Maintenance Insurance [employer] Care Teams Relocation Counselor Relationship Specialty [place] [address] [address] [place] [address] PCP - General Family Practice 05/15/23
--- OUTSIDE RECORDS SUMMARY | 2024-11-16 00:05 | XMS_ITS | Encounter Summary ---
Author Organization [facility] Address [address], [place] [address] Care Team Providers Care Mold Shifter Name Role Phone Paula Infante MD Primary Care Provider [phone] Encounter Details Date Type Department Care Team (Late Contact Info) Description 06/21/2016 Correspondence [facility] Occupational and Environmental Medicine [address] [place] [address] Corona Case MD [address] [place] [address] [phone] PRE-PLACEMENT EXAM Social History Tobacco Use Types [...] CDT Appointment Specialty Center [address] [place] [address] Marjorie Wan MD [address] [place] [address] documented as of this encounter Visit Diagnoses Not on filedocumented in this encounter Additional Health Concerns Infection Onset Date Last Indicated Resolved Time R/O COVID19 05/19/2023 05/19/2023 05/20/2023 3:54 AM CDT documented as of this encounter Care Teams Mold Shifter Relationship Specialty [place] [address] [address] [place] [address] PCP - General Family Practice 05/15/23 documented as of this encounter
[2024-11-16 00:09] VITALS: BP 219/119; PULSE 85; RESP 18; TEMP 36.6; O2SAT 98; BMI 25.4
--- NOTE | 2024-11-16 00:22 | CRLHL7_ITS ---
For Patients: As a result of the Century Cures Act, medical imaging exams and procedure reports are released immediately into your electronic medical record. You may view this report before your referring provider. If you have questions, please contact your health care provider. Indication: Pain x1 day. Technique: Ultrasound venous duplex upper left extremity. Compression venous exam was performed using jones-scale, color Doppler, and spectral Doppler imaging. Comparison: None. Findings: The left internal jugular, subclavian, and axillary veins are patent with normal waveforms. The brachial, basilic, and cephalic veins are fully compressible. No soft tissue abnormalities seen. Impression: No deep venous thrombosis within the evaluated veins of the left upper extremity. Dictated by Santiago Sam MD @ 11/16/2024 1:22:42 AM (Electronically Signed)
--- NOTE | 2024-11-16 00:24 | ED_ITS ---
HPI - General Adult General Chief complaint: Extremity Pain/Injury, Upper Stated complaint: left arm pain, DVT in right arm Time Seen by Provider: 11/16/24 00:10 Source: patient Mode of arrival: ambulatory Limitations: no limitations History of Present Illness HPI narrative: 53-year-old male presents the emergency department with concern of tenderness in the left mid humerus area. Pain similar to pain in the right arm that he experienced a few days ago when he was diagnosed with a right upper extremity DVT. Patient had a recent severe cellulitis and had a midline venous access device placed in the right arm. Apparently he does have a family history of a clotting disorder in a grandfather. But he patient has no prior personal history of DVT besides the recent episode. He has started Eliquis as prescribed and is intending to be on that for 6 weeks. He was concerned about a clot having developed in the interim in the left side and presents to the ED. Has not tried any measures to help with his symptoms. No trauma or injury that would explain the symptoms on the opposite side. No problems with pulses, coolness in the hand, chest pain or shortness of breath. He is not on any medications that would mask tachycardia. Does note some swelling in the opposite arm but this has improved with use of a compression sleeve. Past medical history is pretty extensive. Poorly controlled diabetes, recent cellulitis, recent DVT, seizure disorder. Medications reviewed, list is accurate. Nonsmoker. ROS is notable for the left upper extremity symptoms and the swelling on the right side which is not really new. The midline has been removed in the interim and patient is on oral antibiotics. Related Data Home Medications ?Medication ?Instructions ?Recorded ?Confirmed lamotrigine 100 mg tablet 100 mg PO BID 10/27/24 11/14/24 Previous Rx's ?Medication ?Instructions ?Recorded acetaminophen 325 mg tablet 650 mg (2 x 325 mg) PO QID PRN 11/01/24 #100 tabs diabetic supplies, miscellan. #1 ea 11/01/24 fluconazole 100 mg tablet 200 mg (2 x 100 mg) PO DAILY 22 11/01/24 (Diflucan) days #44 tabs insulin NPH-regular 70-30 U-100 See Rx Instructions .Route 11/01/24 insulin 100 unit/mL subcutaneous .COMPLEX #12 mL pen (Humulin 70/30 U-100 EwelinaikPen) sodium chloride-hypochlorous acid 1 irrig irrigation BID PRN wound 11/01/24 0.033 % irrigation solution (Vashe) care #1,000 mL hydrocodone 5 mg-acetaminophen 325 1 tab PO Q6H PRN pain #7 tabs 11/05/24 mg tablet blood-glucose meter,continuous #1 ea 11/08/24 (FreeStyle Pradip 3 [place]) blood-glucose sensor (FreeStyle #1 ea 11/08/24 Pradip 3 Sensor device) apixaban 5 mg tablet 5 mg PO BID #103 tabs 11/14/24 Allergies Allergy/AdvReac Type Severity Reaction Status Date / Time No Known Drug Allergies Allergy Verified 11/14/24 12:45 [facility] Medical History TIA (transient ischemic attack) ?G45.9 - Transient cerebral ischemic attack, unspecified (ICD-10) Seizure disorder ?G40.909 - Epilepsy, unspecified, not intractable, without status epilepticus (ICD-10) DM (diabetes mellitus), type 2 ?E11.9 - Type 2 diabetes mellitus without complications (ICD-10) Surgical History History of hernia repair ?Z98.890 - Other specified postprocedural states (ICD-10) ?Z87.19 - Personal history of other diseases of the digestive system (ICD-10) S/P appendectomy ?Z90.49 - Acquired absence of other specified parts of digestive tract (ICD- 10) Family History Mother ALS (amyotrophic lateral sclerosis) Social History Narrative: Patient lives in [place]. Healthcare power of assistant city attorney is his friend Stephanie. Code status is full. 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 living situation?: I presently have a place to live Problems where you live: no known problems Problems where you live details: n/a In the past 12 months, utilities in danger of being shut off: no In past 12 months, lack of transportation kept you from medical appts, meetings, work, or getting things needed for daily living: no In the past 12 mos, have been you worried that your food would run out before you had money to buy more?: never true In the past 12 mos, the food you bought just didn't last and you didn't have money to buy more?: never true Highest level of school completed/degree received: 12th grade, no diploma Smoking Status: Never smoker Do you use any of these nicotine containing products: None Second hand tobacco smoke exposure: No How often do you have a drink containing alcohol: never How often do you have six or more drinks on one occasion: Monthly AUDIT-C Alcohol total score: 2 Non-prescribed substance use: denies use Caffeine: Yes How often does anyone, including family, friends and others, physically hurt you : never How often does anyone, including family, friends and others, insult or talk down to you: never How often does anyone, including family, friends and others, threaten you with harm: never How often does anyone, including family, friends and others, scream or curse at you: never service: Yes Exam Const: Vital Signs, click to edit/add: Vital Signs - 24 hr 11/16/24 00:09 Temperature 97.9 F Pulse Rate [Right Pulse Oximeter] 85 Respiratory Rate 18 Blood Pressure [Le ft Forearm] 219/119 H Pulse Oximetry 98 Oxygen Delivery Me thod Room Air Documenting provider has reviewed patient's vital signs: yes Common normals: no apparent distress and alert General appearance: cooperative and well kempt HENMT: Common normals: normocephalic, moist oral mucous membranes and oropharynx normal Head and scalp: normocephalic Eye: Common normals: conjunctivae normal General eye: normal appearance of both eyes Conjunctiva: conjunctiva(e) normal Neck & C-Spine: Other: Dressing in place on upper posterior neck/occipital area. No surrounding redness or seepage onto the bandage. Consistent with known recent abscess drainage. Resp: Common normals: normal respiratory effort, no use of accessory muscles and clear to auscultation bilaterally Effort & inspection: able to speak in complete sentences Auscultation: clear to auscultation bilaterally Cardio: Common normals: regular rate, regular rhythm, S1 normal heart sound, S2 normal heart sound and no murmurs Rate: regular rate Rhythm: regular rhythm Heart sounds: S1 normal and S2 normal Extremity: Other: Both upper extremities have excellent radial pulses, normal capillary refill in all fingers. He has a compression sleeve on the right I do not really appreciate any significant swelling of the lower hand, size does look symmetric. He reports that there was more swelling prior to the compression sleeve which makes sense. The left side has normal range of motion, no point bony tenderness in the shoulder or elbow. Does have some mild tenderness to palpation along the inner groove between the triceps and biceps area. Strong radial pulses, normal capillary refill in all fingers. No significant swelling appreciated. No axillary home. No tenderness to palpation of subclavian or distal clavicular areas. No congestion of superficial veins of chest on appearance. Neuro: Sensorium/orientation: alert Speech: speech normal Motor exam: strength 5/5 throughout Psych: Appearance: well kempt Activity/motor behavior: appropriate eye cont act Mood and affect: euthymic mood Insight: fair Judgement: fair Skin: Common normals: no rashes or lesions noted General skin exam: no rashes or lesions noted Course Course ED Course: 53-year-old male with multiple comorbid medical problems and recent severe cellulitis and midline catheter placement on right side resulting in right upper extremity DVT, recently started appropriately anticoagulation. Now experiencing tenderness in left arm concerning for possible DVT on that side as well. Will obtain venous Doppler ultrasound. It may not require a change in therapy as he has not yet been on anticoagulation very long, this is less likely to be a treatment failure if positive for DVT. It is curious though as the right side with certainly have thought to be related to having the midline catheter. If there is clot on the left re-evaluation of pathogenesis should be considered. Reevaluation(s) Reevaluation #1: Images reviewed, attack and I both appreciate no signs of clot. Venous structures are all well seen and compressible. Counseled patient on findings. I am going to allow him to be discharged home as the results do seem so conclusive. There are no obvious signs of a septic joint, soft tissue abscess or other abnormality that would be dangerous to explain his symptoms. Differential diagnosis includes a tendinitis, radicular pain from the neck, muscular strain. Okay to use Tylenol as needed for discomfort, continue the apixaban. If persistent concerns, follow up with primary care provider. Written instructions provided, all questions answered. Vital Signs Vital signs: Initial Vital Signs Temperature 97.9 F 11/16/24 00:09 Temperature Source Temporal Artery Scan 11/16/24 00:09 Pulse Rate 85 11/16/24 00:09 Pulse Rhythm Regular 11/16/24 00:09 Pulse Strength 3+ Normal 11/16/24 00:09 Respiratory Rate 18 11/16/24 00:09 Blood Pressure 219/119 H 11/16/24 00:09 Blood Pressure Mean 152 H 11/16/24 00:09 Blood Pressure Position Sitting 11/16/24 00:09 Pulse Oximetry 98 11/16/24 00:09 Oxygen Delivery Method Room Air 11/16/24 00:09 Vital Signs Temperature 97.9 F 11/16/24 00:09 Pulse Rate 85 11/16/24 00:09 Respiratory Rate 18 11/16/24 00:09 Blood Pressure 219/119 H 11/16/24 00:09 Pulse Oximetry 98 11/16/24 00:09 Oxygen Delivery Method Room Air 11/16/24 00:09 Temperature 97.9 F 11/16/24 00:09 Pulse Rate 85 11/16/24 00:09 Respiratory Rate 18 11/16/24 00:09 Blood Pressure 219/119 H 11/16/24 00:09 Pulse Oximetry 98 11/16/24 00:09 Oxygen Delivery Method Room Air 11/16/24 00:09 Medical Decision Making Imaging Data Ultrasound upper extremity: Attestation: I have reviewed the pertinent imaging results. My impression: No DVT Radiologist's impression: Impression: No deep venous thrombosis within the evaluated veins of the left upper extremity. Dictated by Santiago Sam MD @ 11/16/2024 1:22:42 AM Discharge Plan Discharge Clinical Impression: Feared complaint without diagnosis Patient Disposition: Home w/ Parent or Adult Condition: Stable Additional Instructions: As we discussed, there are no signs of deep vein thrombosis on the left side. The pain could be from a number of things including tendinitis, radicular pain from the neck, muscle strain. There are no signs of joint infection or problems with arterial flow. The radiologist will look over the images and double- checked the work of the emergency medical technician basic and myself. A will call you if there changes needed to the plan. But at this time, you will just continue taking your apixaban, also known as Eliquis as prescribed. Follow up with her primary care doctor if you have persistent concerns. No movement or lifting restrictions. Activity Level: No Restrictions Discharge Diet: Regular Prescriptions: No Action hydrocodone-acetaminophen 5-325 mg tablet 1 tab PO Q6H PRN (Reason: pain) Qty: 7 0RF apixaban 5 mg tablet 5 mg PO BID Qty: 103 0RF Rx Instructions: 10mg twice daily through 11/19. On 11/20 start taking 5mg twice daily for 38 days. Total treatment is 45 days long. lamotrigine 100 mg tablet 100 mg PO BID fluconazole [Diflucan] 100 mg Tablet 200 mg PO DAILY 22 Days Qty: 44 1RF Humulin 70/30 U-100 KwikPen 100 unit/mL (70-30) insulin pen See Rx Instructions .ROUTE .COMPLEX Qty: 12 2RF Rx Instructions: Administer 2/3 of dose in the morning with breakfast, and 1/3 of dose in the late afternoon with evening meal. Start at 26 units in AM and 13 units in the PM. acetaminophen 325 mg tablet 650 mg PO QID PRNQty: 100 0RF Vashe 0.033 % irrigation solution 1 irrig irrigation BID PRN (Reason: wound care) Qty: 1000 1RF (DME) diabetic supplies, miscellan. Misc See Rx Instructions .ROUTE .MEDSUPPLY Qty: 1 0RF Rx Instructions: glucometer and test strips (DME) FreeStyle Pradip 3 [place] Misc See Rx Instructions .Route Qty: 1 0RF Rx Instructions: As directed (DME) FreeStyle Pradip 3 Sensor Device See Rx Instructions .Route Qty: 1 6RF Rx Instructions: As directed Follow Up/Referrals: Margarita Villegas, FARM EQUIPMENT MAINTENANCE SUPERVISOR [Primary Care Provider] - Stand Alone Forms: MyHealth Info Instructions
--- OUTSIDE RECORDS SUMMARY | 2024-11-16 01:09 | XMS_ITS | Clinical Summary ---
Author Organization [facility] Address [address] [place] [address] Care Team Providers Care Press Reader Name Role Phone Clinic, No Pcp Or [...] Department Care Team Description 10/27/2024 1:00 PM RECORD CHANGER TESTER Ancillary Procedure [facility] [address] [place] [address] from Last 3 Months Immunizations Immunization Administration [...] on file Legal Sex Male 5:41 AM RECORD CHANGER TESTER Gender Identity Not on file Sexual Orientation Not on file Obstetrics History Last Filed Vital Signs Vital Sign Reading Time Taken Comments Blood Pressure 136/82 03/24/2017 8:22 AM CDT Pulse 69 03/24/2017 8:22 AM CDT Temperature 36.8 C (98.2 F) 03/24/2017 8:22 AM CDT Respiratory Rate 18 08/05/2016 4:19 PM RECORD CHANGER TESTER Oxygen Saturation 98% 03/24/2017 8:22 AM CDT [...] COMPLETE WO CONTRAST Routine 10/27/2024 2:18 PM RECORD CHANGER TESTER Bacteremia due to Staphylococcus Cardiac murmur LIPID PANEL W REFLEX MEASURED LDL Routine 11/18/2016 7:40 AM CDT from Last 3 Months or Most Recently Relevant to Health Maintenance Results * ECHO TTE COMPLETE WO CONTRAST (10/27/2024 2:18 PM RECORD CHANGER TESTER) AORTIC VALVE MEAN PG 5 mmHg EJECTION FRACTION 55 % LVEDD 4.3 cm EJECTION FRACTION 55 - 60% Anatomical Region Laterality Modality Ultrasound 10/27/2024 1:16 PM RECORD CHANGER TESTER Narrative 10/27/2024 2:36 PM RECORD CHANGER TESTER ECHOCARDIOGRAM SABAS MCDONOUGH : 1970 53 years Study Date: 10/27/2024 1:16:11 PM Gender: M BP: 138/85 mmHg Height: 170.00 cm BSA: 1.84 m Weight: 73.00 kg Tech: [facility] Referring MD: JENY PENN Site: [facility] Reading Location: MOBILE IP Patient [...] . This study was interpreted by an [facility] accredited facility. CC: HIM (med records) [facility], Med/Surg - IP [facility]. Final Procedure Note Bishnu Calderon MD - 10/27/2024 ECHOCARDIOGRAM SABAS MCDONOUGH : 1970 53 years Study Date: 10/27/2024 1:16:11 PM Gender: M BP: 138/85 mmHg Height: 170.00 cm BSA: 1.84 m Weight: 73.00 kg Tech: [facility] Referring MD: JENY PENN Site: [facility] Reading Location: MOBILE Patient Location: [...] [facility] accredited facility. CC: HIM (med records) [facility], Med/Surg - IP [facility]. Final us Jeny Penn MD ECHO ORD Final Result * (ABNORMAL) LIPID PANEL W REFLEX MEASURED LDL (11/18/2016 7:40 AM CDT) CHOLESTEROL,TOTAL 176 100 - 199 mg/dL 11/18/2016 8:17 AM CDT [facility] TRIGLYCERIDES 112 <150 mg/dL 11/18/2016 8:17 AM CDT [facility] HDL CHOLESTEROL 35(L) >40 mg/dL 7 8:17 AM CDT [facility] NON-HDL CHOLESTEROL 141 <145 mg/dl 11/18/2016 8:17 AM CDT [facility] CHOL/HDL RATIO 5.03(H) <4.50 11/18/2016 8:17 AM CDT [facility] LDL CHOLESTEROL 119 <=130 mg/dL 11/18/2016 8:17 AM CDT [facility] PATIENT STATUS FASTING 11/18/2016 8:17 AM CDT [facility] Blood BLOOD SPECIMEN / Unknown Venipuncture / Unknown 11/18/2016 7:40 AM CDT 11/18/2016 7:40 AM CDT Yovani Hernandez MD CHEMISTRY Final Result [facility] [address] [place] [address], from Last 3 Months or Most Recently [...] Code Status Discussion: Not Discussed Care Teams Press Reader Relationship Specialty Start Date End Date Clinic, No Pcp Or . PCP - General 05/12/17
--- OUTSIDE RECORDS SUMMARY | 2024-11-16 01:09 | XMS_ITS | Clinical Summary ---
Author Organization [facility] Address [address], [place] [address] Care Team Providers Care Whipped Topping Supervisor Name Role Phone Paula Infante MD Primary Care Provider [phone] Source Comments You are receiving this document as you are listed as the primary care provider,follow-up provider, or the patient has been referred to you for consultation.This is in compliance with the Medicare and[facility] Centercaid EHR Incentive Program,which states Providers who transition their patient to another setting of careor provider of care or refers their patient to another provider of care shouldprovide summary care record for each transition of care or referral. [facility] Allergies No known active allergies Medications aspirin [...] 84.4 kg (186 lb) 07/25/2023 9:31 AM LOCKSTITCH FRONT MAKER Height 172.7 cm (5' 8) 05/12/2023 7:11 AM CDT Body Mass Index 28.28 05/12/2023 7:11 AM CDT Plan of Treatment Upcoming Encounters Date Type Department Care Team (Late st Contact Info) Description 06/24/2025 9:30 AM CDT Appointment Specialty Center [address]rology [address] [place] [address] Marjorie Wan MD [address] [place] [address] Health Maintenance Due Date Last Done Comments [...] Direct LDL(If Needed) (05/11/2023 7:09 AM CDT) [facility] Cholesterol 265(H) 0 - 199 mg/dL 05/11/2023 10:56 AM [facility] Triglyceride 222(H) <=149 mg/dL 05/11/2023 10:56 AM [facility] HDL Cholesterol 33(L) >=40 mg/dL 3 10:56 AM [facility] LDL, Calculated 188(H) <130 mg/dL 3 10:56 AM [facility] Non HDL Chol, Calculated 232(H) <=159 mg/dL 05/11/2023 10:56 AM [facility] Cholesterol/HDL Ratio 8.0 05/11/2023 10:56 AM [facility] Hours Fasting 10.0 8 - 12 Hours 05/11/2023 10:56 AM [facility] Blood Venipuncture / Unknown 05/11/2023 7:09 AM CDT 05/11/2023 7:09 AM CDT Min Osorio MD LAB_1 Final Result [facility] [address] [place] [address], [facility] [phone] [facility] [address] [place] [address], [facility] [phone] * (ABNORMAL) Hgb A1C (Expected: Now) - Collect in Lab (05/11/2023 7:09 AM CDT) Pathologist [facility] Hemoglobin A1C 8.9(H) <=5.6 % 05/11/2023 2:36 PM CDT [facility] Estimated Average Glucose (Calc) 209 < 117 mg/dL 05/11/2023 2:36 PM CDT [facility] Comment:Estimated average gl ucose (eAG) converts A1c into glucose units (mg/dL) and estimates average glucose over the past approximately 3 months. The eAG reference interval (<117 mg/dL) corresponds to an A1c of <5.7%. Blood Venipuncture / Unknown 05/11/2023 7:09 AM CDT 05/11/2023 7:09 AM CDT Narrative [facility] - 05/11/2023 2:36 PM CDT For patients not previously diagnosed with diabetes: 5.7-6.4%: Increased risk for diabetes 6.5% and greater: Diagnostic for diabetes For patients diagnosed with diabetes: <8.0%: Goal of therapy for ages 18-75 Clinicians may recommend a higher or lower goal for specific individuals. Min Osorio MD LAB_1 Final Result [facility] [address] [address], [facility] [phone] * (ABNORMAL) Comp Metabolic Panel (03/03/2023 7:51 AM CDT) Pathologist [facility] Sodium 142 136 - 145 mmol/L 03/03/2023 10:12 AM CDT [facility] Potassium 5.0 3.5 - 5.1 mmol/L 03/03/2023 10:12 AM CDT [facility] Chloride 105 98 - 109 mmol/L 03/03/2023 10:12 AM [facility] CO2 26 20 - 29 mmol/L 03/03/2023 10:12 AM [facility] Anion Gap 11 7 - 16 mmol/L 03/03/2023 10:12 AM [facility] Calcium 9.5 8.4 - 10.4 mg/dL 03/03/2023 10:12 AM [facility] BUN 16 7 - 26 mg/dL 03/03/2023 10:12 AM [facility] Creatinine 0.90 0.73 - 1.18 mg/dL 03/03/2023 10:12 AM [facility] Alkaline Phosphatase 56 40 - 150 U/L 03/03/2023 10:12 AM [facility] AST (SGOT) 13 10 - 40 U/L 03/03/2023 10:12 AM [facility] ALT (SGPT) 20 <=55 U/L 03/03/2023 10:12 AM [facility] Bilirubin, Total 0.6 0.2 - 1.2 mg/dL 03/03/2023 10:12 AM [facility] Protein, Total 7.0 6.4 - 8.3 g/dL 03/03/2023 10:12 AM [facility] Albumin 4.1 3.5 - 5.0 g/dL 03/03/2023 10:12 AM [facility] Glucose 298(H) 70 - 100 mg/dL 03/03/2023 10:12 AM [facility] Comment:The given reference range is for the fasting state. Non-fasting reference range for glucose is 70 - 180 mg/dL. Hours Fasting 15 03/03/2023 10:12 AM [facility] GFR, Estimated >60 >60 mL/min/1.7 3m2 03/03/2023 10:12 AM [facility] Blood Venipuncture / Unknown 03/03/2023 7:51 AM CDT 03/03/2023 7:51 AM T us Petra Bermudez MD LAB_1 Final Result [facility] [address] [place] [address], [facility] [phone] [facility] [address] [place] [address], [facility] [phone] * Albumin/Creatinine Ratio,Random Urine (02/10/2023 12:00 PM CDT) Albumin/Creati nine Ratio, Urine, Random 14 <30 mg/g 02/10/2023 4:53 PM CDT [facility] Albumin, Urine, Random 13.7 mg/L 02/10/2023 4:53 PM CDT [facility] Creatinine, Urine, Random 95 >20 mg/dL mg/dL 02/10/2023 4:53 PM CDT [facility] Urine Non-blood Collection / Unknown 02/10/2023 12:00 PM CDT 02/10/2023 12:00 PM CDT Min Osorio MD LAB_1 Final Result [facility] [address] [place] [address], [facility] [phone] from Last 3 Months or Most Recently Relevant to Health Maintenance Insurance [employer] Care Teams Whipped Topping Supervisor Relationship Specialty [place] [address] [place] [address] PCP - General Family Practice 05/15/23
--- OUTSIDE RECORDS SUMMARY | 2024-11-16 01:09 | XMS_ITS | Encounter Summary ---
Author Organization [facility] Address [address], [place] [address] Care Team Providers Care Medical Staff Coordinator Name Role Phone Paula Infante MD Primary Care Provider Encounter Details Date Type Department Care Team (Late Contact Info) Description 06/21/2016 Correspondence [facility] Occupational and Environmental Medicine [address] [place] [address] Corona Case MD [address] [place] [phone] PRE-PLACEMENT EXAM Social History Tobacco Use Types [...] CDT Appointment Specialty Center [address] [place] [address] Marjorie Wan MD [address] [place] [address] documented as of this encounter Visit Diagnoses Not on filedocumented in this encounter Additional Health Concerns Infection Onset Date Last Indicated Resolved Time R/O COVID19 05/19/2023 05/19/2023 05/20/2023 3:54 AM CDT documented as of this encounter Care Teams Medical Staff Coordinator Relationship Specialty [place] [address] [address] [place] [address] PCP - General Family Practice 05/15/23 documented as of this encounter
--- OUTSIDE RECORDS SUMMARY | 2024-11-16 01:09 | XMS_ITS | Clinical Summary ---
Author Organization [facility] Address [address] [place] [address] Care Team Providers Care Assistant Quality Manager Name Role Phone No Ref-Primary, Physician Primary [...] Plan of Treatment Not on file [place] [address] [place] [address] INSURANCE Advance Directives For more information, please contact: [phone] * Full Code (Latest Code Status on File) Date Activated Date Inactivated Comments 01/25/2018 3:21 AM 01/27/2018 3:56 PM Care Teams Assistant Quality Manager Relationship Specialty Start Date End Date No Ref-Primary, Physician PCP - General 03/23/20
--- OUTSIDE RECORDS SUMMARY | 2024-11-16 01:09 | XMS_ITS | Encounter Summary ---
Author Organization [facility] Address [address], [place] [address] Care Team Providers Care Safety Trainer Name Role Phone Paula Infante MD Primary Care Provider [phone] Encounter Details Date Type Department Care Team (Late Contact Info) Description 06/21/2016 Correspondence [facility] Occupational and Environmental Medicine [address] [place] [id number] Corona Case MD [address] [place] [address] [id number] PRE-PLACEMENT EXAM Social History Tobacco Use Types [...] CDT Appointment [facility] [address] [place] [address] Marjorie Wan MD [address] [place] [address] documented as of this encounter Visit Diagnoses Not on filedocumented in this encounter Additional Health Concerns Infection Onset Date Last Indicated Resolved Time R/O COVID19 05/19/2023 05/19/2023 05/20/2023 3:54 AM CDT documented as of this encounter Care Teams Safety Trainer Relationship Specialty [place] [address] [place] [address] PCP - General Family Practice 05/15/23 documented as of this encounter
== END 2024-11-16 01:16 | disposition home or self-care (01) ==
LOC: ED 01:07
PROVIDERS: Emergency Provider Family Medicine; PCP Registered Nurse
DX: M79.602 Pain in left arm (principal); Z71.1 Person with feared health complaint in whom no diagnosis is made
CPT/HCPCS: 93971; 99283

== ENCOUNTER 2024-12-18 15:00 | Outpatient (CLI) | payer OTHER, SELFPAY ==
--- NOTE | 2024-12-18 15:30 | CRLHL7_ITS ---
For Patients: As a result of the Century Cures Act, medical imaging exams and procedure reports are released immediately into your electronic medical record. You may view this report before your referring provider. If you have questions, please contact your health care provider. Indication: Neck and posterior scalp cellulitis. Technique: Multisequence multiplanar MRI of the cervical spine prior to and following administration of 20 cc Dotarem gadolinium based intravenous contrast. Comparison: None available. Findings: Normal vertebral alignment and stature. No T1 hypointense infiltrative lesion. Incidental T1 vertebral hemangioma. Mild multilevel disc desiccation and height loss. Mild enlargement of the central canal at the C6 and C7 levels with no associated mass effect or enhancement. The cerebellar tonsils are normally situated. No abnormal enhancement is identified elsewhere within the cervical spine. C2-C3 and C3-C4: Mild facet joint arthrosis. No significant spinal canal or neural foraminal stenosis. C4-C5: Shallow symmetric disc bulge. No significant spinal canal stenosis. Mild right and moderate-severe left neural foraminal narrowing associated with uncovertebral arthrosis. C5-C6: Shallow symmetric disc bulge. No significant spinal canal stenosis or right neural foraminal narrowing. Moderate left neural foraminal narrowing associated with uncovertebral and facet joint arthrosis. C6-C7: Symmetric disc bulge. Mild facet joint arthrosis. No significant spinal canal stenosis or right neural foraminal narrowing. Mild left neural foraminal narrowing. C7-T1: Shallow symmetric disc bulge. Mild facet joint arthrosis. No significant spinal canal or neural foraminal stenosis. Impression: 1. No focus of abnormal enhancement or evidence of infection within the cervical spine. 2. Mild enlargement of the central canal at the C6 and C7 levels without associated mass effect or pathologic enhancement, potentially reflecting normal physiologic variation in the absence of clinical symptoms. 3. At C4-C5, moderate-severe left neural foraminal narrowing. 4. At C5-C6, moderate left neural foraminal narrowing. Dictated by Carl Jackson MD @ 12/19/2024 8:11:00 AM (Electronically Signed)
== END 2024-12-18 15:01 | disposition home or self-care (01) ==
LOC: MRI 15:01
PROVIDERS: PCP Registered Nurse; Visit Provider Registered Nurse
DX: R20.2 Paresthesia of skin (principal); M50.221 Other cervical disc displacement at C4-C5 level; M50.222 Other cervical disc displacement at C5-C6 level
CPT/HCPCS: 72156; A9575

== ENCOUNTER 2025-01-01 10:43 | Outpatient (CLI) | payer OTHER, SELFPAY ==
--- NOTE | 2025-01-01 11:15 | CRLHL7_ITS ---
For Patients: As a result of the Century Cures Act, medical imaging exams and procedure reports are released immediately into your electronic medical record. You may view this report before your referring provider. If you have questions, please contact your health care provider. 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 TECHNIQUE: Ultrasound venous duplex upper right extremity. Compression venous exam was performed using jones-scale, color Doppler, and spectral Doppler imaging. COMPARISON: 11/13/2024 FINDINGS: Right internal jugular vein shows normal compression and waveforms. Right brachiocephalic and subclavian veins show normal filling on color Doppler imaging. Right axillary, brachial, basilic and cephalic veins show normal compressibility and waveforms. Right radial and ulnar veins show normal compression. Left internal jugular vein shows normal compression and waveforms. IMPRESSION: Normal right upper extremity venous ultrasound, no sign of deep venous thrombosis. Previously noted brachial deep venous thrombosis no longer identified. Dictated by Kyle Ortega MD @ 01/01/2025 1:07:25 PM (Electronically Signed)
== END 2025-01-01 10:44 | disposition home or self-care (01) ==
LOC: US 10:44
PROVIDERS: PCP Registered Nurse; Visit Provider Registered Nurse
DX: I82.621 Acute embolism and thrombosis of deep veins of right upper extremity (principal)
CPT/HCPCS: 93971